=== PATIENT | male | born 1975 ===

== ENCOUNTER 2021-03-01 13:00 | Inpatient (IN) | payer BC ==
[~2021-03-01] VITALS: Ht 165.1 cm; Wt 79.9 kg
[~2021-03-01 13:00] MED LIST: etomidate 2mg/ml inj. ONE; rocuronium 10mg/ml inj IV ONE; sod chloride 0.9% 10ml flush syringe IV ONE
[2021-03-01 14:00] LABS: BASOPHILS # (AUTO) 0.1 X10'3 (0-0.2); BASOPHILS % (AUTO) 0.5 % (0-1); EOSINOPHILS # (AUTO) 0.1 X10'3 (0-0.9); EOSINOPHILS % (AUTO) 0.3 % (0-6); HEMATOCRIT 41.9 % (42.0-52.0); HEMOGLOBIN 14.3 g/dl (14.0-17.9); LYMPHOCYTES # (AUTO) 1.1 X10'3 (1.1-4.8); MEAN CORPUSCULAR HEMOGLOBIN 31.4 PG (27.0-31.0); MEAN CORPUSCULAR HGB CONC 34.1 g/dL (33.0-36.5); MEAN PLATELET VOLUME 7.6 FL (7.4-10.4); MONOCYTES # (AUTO) 1.2 X10'3 (0-0.9); MONOCYTES % (AUTO) 7.6 % (2-12); NEUTROPHILS # (AUTO) 13.2 X10'3 (1.8-7.7); NEUTROPHILS % (AUTO) 84.6 % (42-75); PLATELET COUNT 512 X10'3 (140-440); RED BLOOD COUNT 4.55 X10'6 (4.70-6.10); RED CELL DISTRIBUTION WIDTH 12.7 % (11.5-14.5); WHITE BLOOD COUNT 15.6 X10'3 (4.5-11.0)
[2021-03-01] MEDS ORDERED: NO HOME MEDS (14:10)
[2021-03-01 14:15] LABS: ALANINE AMINOTRANSFERASE 68 U/L (12-78); ALBUMIN 2.3 G/DL (3.4-5.0); ALBUMIN/GLOBULIN RATIO 0.4 (1.1-1.5); ALKALINE PHOSPHATASE 166 IU/L (46-116); ANION GAP 12 (8-16); ASPARTATE AMINO TRANSFERASE 49 U/L (10-37); BILIRUBIN,TOTAL 0.8 MG/DL (0.1-1.0); BLOOD UREA NITROGEN 5 MG/DL (7-18); BUN/CREATININE RATIO 5.6 (5.4-32.0); CALCIUM 8.5 MG/DL (8.5-10.1); CHLORIDE 100 MMOL/L (99-107); CREATININE 0.89 MG/DL (0.60-1.10); GLUCOSE 160 MG/DL (70-104); SODIUM 138 MMOL/L (135-145); TOTAL CARBON DIOXIDE 26.4 MMOL/L (24-32); eGFR > 90 ML/MIN
[2021-03-01] MEDS ORDERED: azithromycin/NS 500mg/250ml 250 ML IV ONE (14:45)
[2021-03-01] MEDS ORDERED: CefTRIAXone 2gm/D5W 50ml BAG 50 ML IV ONE (14:45)
[2021-03-01] MEDS ORDERED: ALBUTEROL INHALER 1 PUFF/90 MCG INHALER IH PRN (14:45)
[2021-03-01] MEDS ORDERED: iohexol 350MG/ML 100ml bottle IV ONE (15:18)
--- NOTE | 2021-03-01 18:25 | NUR ---
PATIENT SITTING ON SIDE OF BED. HE IS ABLE TO SPEAK IN FULL SENTENCES AND RESPONDING WELL TO NC O2.
--- NOTE | 2021-03-01 19:11 | NUR ---
PT IS PRONING
[2021-03-01] MEDS ORDERED: morphine 2 MG/ML inj. syringe IV PRN (20:15)
[2021-03-01] MEDS ORDERED: magnesium 2GM in 50ml NS 50 ML IV PRN (20:15)
[2021-03-01] MEDS ORDERED: magnesium Cl slow-release 64mg tablet PO PRN (20:15)
[2021-03-01] MEDS ORDERED: magnesium 4gm in 100ml NS 100 ML IV PRN (20:15)
[2021-03-01] MEDS ORDERED: potassium Cl 40MEQ/1/2NS 520ml 520 ML IV PRN ×2 (20:15)
[2021-03-01] MEDS ORDERED: magnesium hydroxide 30ml (MOM) UD suspension PO PRN (20:15)
[2021-03-01] MEDS ORDERED: potassium Cl 20 mEq SR tablet PO PRN ×2 (20:15)
[2021-03-01] MEDS ORDERED: HYDROcodone/acetaminophen 5mg/325mg tablet PO PRN (20:15)
[2021-03-01] MEDS ORDERED: acetaminophen 325mg tablet PO PRN ×2 (20:15)
[2021-03-01] MEDS ORDERED: ondansetron/PF 4mg/2ml inj IV PRN (20:15)
[2021-03-01] MEDS ORDERED: mag hydrox/Alum hydrox/simeth 30ml oral suspension PO PRN (20:15)
[2021-03-01] MEDS: dexamethasone 4mg/ml inj IV SCH (20:36)
--- NOTE | 2021-03-01 20:49 | NUR ---
PT DOES NOT TOLERATE CHANGE IN POSITIONS WELL. PT MEDICATED WITH ALBUTEROL INHALER AND DECADRON. O2 INCREASED TO 6L NC. PT LYING IN MID FOWLERS WITH SAO2 OF 93%.
[2021-03-01] MEDS ORDERED: temazepam 15mg capsule PO PRN (21:00)
--- NOTE | 2021-03-01 21:25 | NUR ---
SPOKE TO DR ROJAS CONCERNING PT'S MOVEMENT INTOLERANCE. REQ TO SEND PAGE TO RT FOR AN ABG AND RT EVALUATION. PAGE TO RT HAS BEEN SENT.
[2021-03-01 22:11] LABS: ABG BASE EXCESS 2.8 mmol/L (-2.0-2.0); ABG HCO3 26.5 mmol/L (22.0-26.0); ABG OXYGEN SATURATION 92.8 % (94-97); ABG PCO2 (T) 39.2 mmHg (35.0-48.0); ABG PO2 (T) 70.1 mmHg (75.0-100.0); ALLEN'S TEST POSITIVE; FCOHb 0.5 % (0.0-3.9); FLOW 6 L/min; FMetHb 0.1 % (0.0-1.5); FO2Hb 92.2 % (94-97); PATIENT TEMPERATURE 37.8; TOTAL HEMOGLOBIN 13.3 G/dl (14.0-18.0)
[2021-03-02 02:19] LABS: BASOPHILS % (AUTO) 0.2 % (0-1); EOSINOPHILS % (AUTO) 0 % (0-6); HEMATOCRIT 37.8 % (42.0-52.0); LYMPHOCYTES # (AUTO) 0.7 X10'3 (1.1-4.8); LYMPHOCYTES % (AUTO) 4.6 % (21-51); MEAN CORPUSCULAR HEMOGLOBIN 31.3 PG (27.0-31.0); MEAN CORPUSCULAR HGB CONC 34.5 g/dL (33.0-36.5); MEAN CORPUSCULAR VOLUME 90.9 FL (78-98); MEAN PLATELET VOLUME 7.8 FL (7.4-10.4); MONOCYTES # (AUTO) 0.5 X10'3 (0-0.9); MONOCYTES % (AUTO) 3.3 % (2-12); NEUTROPHILS # (AUTO) 13.5 X10'3 (1.8-7.7); NEUTROPHILS % (AUTO) 91.9 % (42-75); PLATELET COUNT 409 X10'3 (140-440); RED BLOOD COUNT 4.16 X10'6 (4.70-6.10); RED CELL DISTRIBUTION WIDTH 12.5 % (11.5-14.5); WHITE BLOOD COUNT 14.7 X10'3 (4.5-11.0)
[2021-03-02 02:34] LABS: D-DIMER 7.21 MG/L FEU (0-0.50)
[2021-03-02 02:39] LABS: ALANINE AMINOTRANSFERASE 68 U/L (12-78); ALBUMIN 2.2 G/DL (3.4-5.0); ALBUMIN/GLOBULIN RATIO 0.4 (1.1-1.5); ALKALINE PHOSPHATASE 118 IU/L (46-116); ANION GAP 8 (8-16); ASPARTATE AMINO TRANSFERASE 58 U/L (10-37); BILIRUBIN,TOTAL 0.6 MG/DL (0.1-1.0); BLOOD UREA NITROGEN 6 MG/DL (7-18); BUN/CREATININE RATIO 7.2 (5.4-32.0); C-REACTIVE PROTEIN 20.49 MG/DL (0.0-0.5); CALCIUM 8.4 MG/DL (8.5-10.1); CHLORIDE 106 MMOL/L (99-107); CREATININE 0.83 MG/DL (0.60-1.10); GLUCOSE 163 MG/DL (70-104); LACTATE DEHYDROGENASE 390 U/L (85-227); POTASSIUM 4.5 MMOL/L (3.5-5.1); SODIUM 142 MMOL/L (135-145); TOTAL PROTEIN 7.2 G/DL (6.4-8.2); eGFR > 90 ML/MIN
--- NOTE | 2021-03-02 04:03 | NUR ---
Bhavani fenton in ED - 03/02/21 at 0403 by BROOKE RETURNED FROM [address] OF ABDOMEN
[2021-03-02] MEDS ORDERED: heparin, porcine 5000 units/ml vial SQ SCH (08:00)
[2021-03-02] MEDS: K and/or MAG REPLACEMENT MC SCH ×2 (08:00→20:00)
[2021-03-02] MEDS: CefTRIAXone 2gm/D5W 50ml BAG 50 ML IV SCH (09:05)
[2021-03-02] MEDS: dexamethasone 4mg/ml inj IV SCH ×2 (09:05→22:36)
--- NOTE | 2021-03-02 09:18 | NUR ---
PT ON NON REBREATHER MASK AND STILL CANNOT GET O2 SAT ABOVE 85.
--- NOTE | 2021-03-02 09:24 | NUR ---
ORDERS PER DR GRIFFITH, PAGE RT, GET ABG, PUT PT ON SALTER NASAL CANULA.
--- NOTE | 2021-03-02 09:28 | NUR ---
PAGE SENT TO RT: YAEL HAGEN, ROOM 1, STAT ABG, PLACE PT ON LEE ANN BLOUNT POS CANNOT SAT OVER 85 ON NON REBREATHER
[2021-03-02 10:08] LABS: ABG HCO3 24.2 mmol/L (22.0-26.0); ABG OXYGEN SATURATION 85.8 % (94-97); ABG PCO2 (T) 37.9 mmHg (35.0-48.0); ABG PO2 (T) 50.8 mmHg (75.0-100.0); ALLEN'S TEST POSITIVE; FCOHb 0.3 % (0.0-3.9); FLOW 15 L/min; FMetHb 0.2 % (0.0-1.5); FO2Hb 85.4 % (94-97); TOTAL HEMOGLOBIN 14.3 G/dl (14.0-18.0)
--- NOTE | 2021-03-02 10:20 | NUR ---
Bhavani fenton in ED - 03/02/21 at 1021 by ALVA PAGER ID: [phone] MESSAGE: ROOM 1 ED, PT GERARDO HAGEN, --[facility], ABG pO2 50.8 ON ON REBREATHER 100%FIO2. PT NOW ON SALTER AND NONREBREATHER SAT IS 95%
--- NOTE | 2021-03-02 10:22 | NUR ---
PAGER ID: [phone] MESSAGE: ROOM 1 ED, PT GERARDO HAGEN, --[facility], ABG pO2 50.8 ON ON REBREATHER 100%FIO2. PT NOW ON SALTER AND NONREBREATHER SAT IS 95%
--- NOTE | 2021-03-02 10:29 | NUR ---
Dr Ovalles Bedside
[2021-03-02] MEDS ORDERED: REMDESIVIR INJ 200 MG in normal saline 100ml IV soln 60 ML IV ONE (13:10)
--- NOTE | 2021-03-02 18:29 | NUR ---
ASSUMED CARE OF PT. PT LYING ON BED IN MID-CONN'S POSITION. A&OX4. SPEAKS IN FULL SENTENCES AND REPORTS "FEELING WELL."
[2021-03-02 20:00] VITALS: BP 134/78
--- NOTE | 2021-03-02 20:40 | NUR ---
PAGER ID: [phone] MESSAGE: Osman Moreno 45M rm [id number] admit 03/02 Dx Covid Pnu Hx none NKA Can we get an order for RT Eval and treat? Thank you Jennifer [phone] Addendum: 03/02/21 at 2041 by Jennifer Colunga RN Dr Eden kraft
[2021-03-02 22:00] VITALS: BP 133/46
[2021-03-02] MEDS: lactobacillus rhamnosus 10,000 MMU CELLS/CAPSULE PO SCH (22:35)
[2021-03-02] MEDS: enoxaparin 60mg/0.6ml syringe SUBCUT SCH (22:35)
--- NOTE | 2021-03-03 01:14 | NUR ---
PAGER ID: [phone] MESSAGE: Osman Singh 45M room 3008-A DX: Joce PNA Hx: none NKA Pt is currently sating at 85-88% on non rebreather at 15L and hi flow nc at 15L. pt is a bit more lethargic. Can we please order an ABG? Vikki U [id number] Addendum: 03/03/21 at 0119 by Vikki Cruz RN Dr mcgee and Dr barnes ordered ABG stat
[2021-03-03 01:28] LABS: ABG HCO3 27.7 mmol/L (22.0-26.0); ABG OXYGEN SATURATION 92.4 % (94-97); ABG PCO2 (T) 40.7 mmHg (35.0-48.0); ABG PO2 (T) 61.9 mmHg (75.0-100.0); ALLEN'S TEST POSITIVE; FCOHb 0.2 % (0.0-3.9); FMetHb 0.3 % (0.0-1.5); FO2Hb 91.9 % (94-97); PATIENT TEMPERATURE 35.8; TOTAL HEMOGLOBIN 13.8 G/dl (14.0-18.0)
[2021-03-03 02:00] VITALS: BP 136/43
--- NOTE | 2021-03-03 03:59 | NUR ---
PAGER ID: [phone] MESSAGE: Pt Osman hernandez 45M Tele 3008-A Dx: Doug SY Hx: none NKA pt desating to the low 80's% ABG done, improved to pO2 of 61.09 but still desating and SOB Vikki Tele [id number] Addendum: 03/03/21 at 0407 by Vikki Cruz RN Dr Harmon contacted, ordered Renard, RT aware
--- NOTE | 2021-03-03 04:55 | NUR ---
Pt was on 15L HFNC with 15L non-rebreather, and pt was desaturating on that. ABG was done and oxygen had improved from yesterday mornings ABG. Pt continued to desaturate into the lower 80's and now BiPAP is on pt. Settings are 14/8, 18, and 100% FiO2. Pt is now oxygenating 92%.
--- NOTE | 2021-03-03 05:33 | NUR ---
PAGER ID: [phone] MESSAGE: Pt Osman Moreno U [id number] Dx: Joce SY Pt tolerating Bipap but need Bipap orders. 20/02 and titrate fi02 to sustain sats at 88-94% Vikki HICKMAN [id number] Addendum: 03/03/21 at 0535 by Vikki Cruz RN Dr Harmon contacted orders of Bipap 20/02 put in
[2021-03-03 06:00] VITALS: BP 140/54
[2021-03-03 06:09] LABS: BASOPHILS # (AUTO) 0.1 X10'3 (0-0.2); BASOPHILS % (AUTO) 0.3 % (0-1); EOSINOPHILS % (AUTO) 0 % (0-6); HEMATOCRIT 37.4 % (42.0-52.0); HEMOGLOBIN 12.7 g/dl (14.0-17.9); LYMPHOCYTES # (AUTO) 0.7 X10'3 (1.1-4.8); LYMPHOCYTES % (AUTO) 3.4 % (21-51); MEAN CORPUSCULAR HEMOGLOBIN 31.2 PG (27.0-31.0); MEAN CORPUSCULAR VOLUME 91.8 FL (78-98); MEAN PLATELET VOLUME 7.8 FL (7.4-10.4); MONOCYTES # (AUTO) 1.1 X10'3 (0-0.9); MONOCYTES % (AUTO) 5.4 % (2-12); NEUTROPHILS # (AUTO) 18.4 X10'3 (1.8-7.7); NEUTROPHILS % (AUTO) 90.9 % (42-75); PLATELET COUNT 418 X10'3 (140-440); RED BLOOD COUNT 4.08 X10'6 (4.70-6.10); RED CELL DISTRIBUTION WIDTH 12.6 % (11.5-14.5); WHITE BLOOD COUNT 20.2 X10'3 (4.5-11.0)
--- NOTE | 2021-03-03 06:25 | NUR ---
Problems reprioritized. Patient report given, questions answered & plan of care reviewed with GERARDO Hanson.
--- NOTE | 2021-03-03 06:32 | NUR ---
[place] documentation: I have reviewed and agree with all interventions, assessments performed and documented by GERARDO Florez.
--- NOTE | 2021-03-03 06:33 | NUR ---
[place] Medication Administration: For this medication-pass time frame, all medication were reviewed, dispensed, administered and documented per hospital policy by GERARDO Florez.
--- NOTE | 2021-03-03 06:33 | NUR ---
Patient in room PCU 3008. I have received report from Vikki RN and Jennifer RN and had the opportunity to ask questions and assume patient care.
[2021-03-03 06:38] LABS: ALANINE AMINOTRANSFERASE 79 U/L (12-78); ALBUMIN/GLOBULIN RATIO 0.4 (1.1-1.5); ALKALINE PHOSPHATASE 116 IU/L (46-116); ANION GAP 9 (8-16); ASPARTATE AMINO TRANSFERASE 58 U/L (10-37); BILIRUBIN,TOTAL 0.5 MG/DL (0.1-1.0); BLOOD UREA NITROGEN 13 MG/DL (7-18); BUN/CREATININE RATIO 17.8 (5.4-32.0); CALCIUM 8.5 MG/DL (8.5-10.1); CHLORIDE 106 MMOL/L (99-107); CREATININE 0.73 MG/DL (0.60-1.10); GLUCOSE 158 MG/DL (70-104); MAGNESIUM 2.1 MG/DL (1.5-2.4); POTASSIUM 4.7 MMOL/L (3.5-5.1); SODIUM 142 MMOL/L (135-145); TOTAL CARBON DIOXIDE 26.9 MMOL/L (24-32); eGFR > 90 ML/MIN
[2021-03-03] MEDS: CefTRIAXone 2gm/D5W 50ml BAG 50 ML IV SCH (07:54)
[2021-03-03] MEDS: enoxaparin 60mg/0.6ml syringe SUBCUT SCH (07:54)
[2021-03-03] MEDS: dexamethasone 4mg/ml inj IV SCH (07:54)
[2021-03-03] MEDS: lactobacillus rhamnosus 10,000 MMU CELLS/CAPSULE PO SCH (07:54)
[2021-03-03] MEDS: K and/or MAG REPLACEMENT MC SCH ×2 (08:00→20:00)
[2021-03-03] MEDS: REMDESIVIR INJ 100 MG in normal saline 100ml IV soln 80 ML IV SCH (09:00)
[2021-03-03] MEDS ORDERED: pneumococcal 23-VAL P-sac vacc 25 mcg/0.5ml vial IMVAC ONE (10:00)
[2021-03-03 11:00] VITALS: BP 136/52
[2021-03-03 14:12] LABS: C-REACTIVE PROTEIN 20.09 MG/DL (0.0-0.5)
[2021-03-03 15:00] VITALS: BP 138/54
[2021-03-03] MEDS: vancomycin/NS 1 GM ADD-VANTAGE 250 ML X 1 DOSE IV SCH (15:30)
[2021-03-03 16:05] LABS: HIV ANTIBODY 1&2 RAPID NON-REACTIVE (Neg)
[2021-03-03 18:00] VITALS: BP 139/67
--- NOTE | 2021-03-03 18:54 | NUR ---
Problems reprioritized. Patient report given, questions answered & plan of care reviewed with GERARDO Marino.
--- NOTE | 2021-03-03 19:31 | NUR ---
Patient in room PCU 3008. I have received report from Margie CARRILLO and had the opportunity to ask questions and assume patient care.
[2021-03-03 22:00] VITALS: BP 112/69
[2021-03-04] VITALS (22 sets, daily range): BP systolic 80–185; BP diastolic 47–100
[2021-03-04] MEDS: enoxaparin 60mg/0.6ml syringe SUBCUT SCH ×3 (00:29→21:04)
[2021-03-04] MEDS: dexamethasone 4mg/ml inj IV SCH ×2 (00:30→08:03)
[2021-03-04] MEDS: vancomycin/NS 1 GM ADD-VANTAGE 250 ML X 1 DOSE IV SCH ×3 (00:38→21:05)
[2021-03-04] MEDS: lactobacillus rhamnosus 10,000 MMU CELLS/CAPSULE PO SCH ×3 (00:39→21:04)
--- NOTE | 2021-03-04 06:00 | NUR ---
Patient in room CICU 2008. I have received report from maribel adams and had the opportunity to ask questions and assume patient care.
--- NOTE | 2021-03-04 06:30 | NUR ---
Check pt, awake, ox3, rr 34, sat 90-92%, pt on bipap 100% fio2 i22/e12 Vt is 700. says he feels"ok". says last BM3 days ago.
[2021-03-04 06:35] LABS: BASOPHILS % (AUTO) 0.2 % (0-1); EOSINOPHILS % (AUTO) 0 % (0-6); HEMATOCRIT 38.8 % (42.0-52.0); HEMOGLOBIN 13.1 g/dl (14.0-17.9); LYMPHOCYTES # (AUTO) 0.6 X10'3 (1.1-4.8); MEAN CORPUSCULAR HGB CONC 33.7 g/dL (33.0-36.5); MEAN CORPUSCULAR VOLUME 92.1 FL (78-98); MEAN PLATELET VOLUME 8.3 FL (7.4-10.4); MONOCYTES # (AUTO) 0.9 X10'3 (0-0.9); MONOCYTES % (AUTO) 4.5 % (2-12); NEUTROPHILS % (AUTO) 92.3 % (42-75); PLATELET COUNT 366 X10'3 (140-440); RED BLOOD COUNT 4.21 X10'6 (4.70-6.10); RED CELL DISTRIBUTION WIDTH 12.8 % (11.5-14.5); WHITE BLOOD COUNT 20.6 X10'3 (4.5-11.0)
[2021-03-04 06:55] LABS: ALANINE AMINOTRANSFERASE 79 U/L (12-78); ALBUMIN 1.9 G/DL (3.4-5.0); ALBUMIN/GLOBULIN RATIO 0.4 (1.1-1.5); ALKALINE PHOSPHATASE 126 IU/L (46-116); ANION GAP 9 (8-16); ASPARTATE AMINO TRANSFERASE 61 U/L (10-37); BILIRUBIN,TOTAL 0.7 MG/DL (0.1-1.0); BLOOD UREA NITROGEN 13 MG/DL (7-18); CALCIUM 8.7 MG/DL (8.5-10.1); CHLORIDE 106 MMOL/L (99-107); CREATININE 0.81 MG/DL (0.60-1.10); GLUCOSE 169 MG/DL (70-104); MAGNESIUM 2.3 MG/DL (1.5-2.4); POTASSIUM 4.9 MMOL/L (3.5-5.1); SODIUM 144 MMOL/L (135-145); eGFR > 90 ML/MIN
--- NOTE | 2021-03-04 06:59 | NUR ---
Problems reprioritized. Patient report given, questions answered & plan of care reviewed with Vishnu CARRILLO.
[2021-03-04] MEDS: K and/or MAG REPLACEMENT MC SCH ×2 (08:00→20:00)
[2021-03-04] MEDS: CefTRIAXone 2gm/D5W 50ml BAG 50 ML IV SCH (08:03)
[2021-03-04] MEDS: REMDESIVIR INJ 100 MG in normal saline 100ml IV soln 80 ML IV SCH (08:04)
--- NOTE | 2021-03-04 09:05 | NUR ---
0845 mD Ovalles present , informed him pt cont to hav elow sats. he madde an attempt to eat a few bites of food on 15L salter NC and desat to 65%, he said " yeah, i feel a little SOB" his rr 40's reapplied bipap immediately and explained he can't tolerate being off it. Watched sats for 35 min and he isnt recvering well. sats 80-85%. MD Ovalles says lets intubat ehim. Charge nurse notified and team arrived at 0900 to intubate- it was agreed to do so at bedside. MD Ramirez intubated pt at this time 0900. 0905 admin meds. intubated succesfully and has OG tube placed by 0910. ICU by 0930 with RT at bedside during transport, and gave report to shelton CARRILLO
--- NOTE | 2021-03-04 09:30 | NUR ---
received by bed to room 2007.- sedated post intubation. sbp high. md aware of only piv x 1= picc ordered.
[2021-03-04] MEDS ORDERED: midazolam 1 mg/ML 2ml injection IV ONE (09:45)
[2021-03-04] MEDS ORDERED: fentaNYL/PF 50MCG/1 ML 2ML syringe IV PRN (09:45)
[2021-03-04] MEDS: normal saline 1000ml 1,000 ML IV SCH ×2 (09:50→23:10)
[2021-03-04] MEDS ORDERED: acetaminophen 325mg tablet PO PRN ×2 (09:50)
[2021-03-04] MEDS ORDERED: ondansetron/PF 4mg/2ml inj IV PRN (09:50)
[2021-03-04] MEDS ORDERED: magnesium hydroxide 30ml (MOM) UD suspension PO PRN (09:50)
[2021-03-04 09:52] LABS: ABG BASE EXCESS -0.3 mmol/L (-2.0-2.0); ABG HCO3 26.7 mmol/L (22.0-26.0); ABG OXYGEN SATURATION 89.8 % (94-97); ABG PCO2 (T) 52.6 mmHg (35.0-48.0); ABG PO2 (T) 66.3 mmHg (75.0-100.0); ALLEN'S TEST POSITIVE; FCOHb 0.3 % (0.0-3.9); FMetHb 0.5 % (0.0-1.5); FO2Hb 89.1 % (94-97); PATIENT TEMPERATURE 36.9; PEEP 12 cm H2O; RESPIRATORY RATE 24 b/min; TIDAL VOLUME 425 mL; TOTAL HEMOGLOBIN 14.6 G/dl (14.0-18.0)
--- NOTE | 2021-03-04 10:00 | NUR ---
fentanyl and versed hung- frequent boluses- pt difficult to sedate- sbp 180's to 80's/ pt was awake- obeying commands, but very anxious.
[2021-03-04 11:16] LABS: PLATELET COUNT 388 X10'3 (140-440)
[2021-03-04 11:55] LABS: D-DIMER 4.91 MG/L FEU (0-0.50); PARTIAL THROMBOPLASTIN TIME 29 SECONDS (22-32)
[2021-03-04 12:22] LABS: CLARITY,URINE CLOUDY (Clear); COLOR,URINE YELLOW (Yellow); GLUCOSE, URINE NEGATIVE (Neg); KETONES,URINE NEGATIVE (Neg); LEUKOCYTE ESTERASE ,URINE NEGATIVE (Neg); NITRITES, URINE NEGATIVE (Neg); OCCULT BLOOD,URINE TRACE-INTACT (Neg); PH,URINE 5.5 (4.8-8.0); PROTEIN,URINE 30 mg/dl (Neg)
[2021-03-04 12:31] LABS: UA COLLECTION TYPE FOLEY CATH
[2021-03-04 12:42] LABS: SQUAMOUS EPITHELIAL CELL,UR FEW /LPF (FEW)
[2021-03-04 12:43] LABS: HYALINE CASTS >30 /LPF (NEGATIVE)
[2021-03-04 12:45] LABS: RENAL CELLS, URINE FEW /HPF; TRANSITIONAL EPI CELLS,URINE FEW /HPF
[2021-03-04] MEDS ORDERED: normal saline 1000ml 1,000 ML IVB ONE (12:45)
[2021-03-04 12:46] LABS: WBC,URINE 0-4 /HPF (0-4)
[2021-03-04 12:48] LABS: BACTERIA,URINE NONE SEEN /HPF (Neg)
[2021-03-04] MEDS ORDERED: VANCOMYCIN LEVEL IV ONE (13:30)
--- NOTE | 2021-03-04 13:54 | NUR ---
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 Pt s/p rapid response 03/03 and required urgent intubation per MD note. Pt with an OG tube in place per EMR, to begin TF per MD at critical care rounds. Estimated nutrient needs were calculated using IBW +10% as current wt in EMR isn't scaled. Will monitor for scaled weight and adjust TF recommendations as appropriate. Noted that pt was on a regular diet prior to intubation and not eating well with 0% PO intake throughout LOS. LBM 03/02, receiving routine bowel care. Will continue to follow closely. Recommendations: 1) Continuous TF via OG tube using Vital AF with goal rate of 55 mL/hr to provide 1320 mL total volume/day, 1584 kcal, 99 g protein, and 1071 mL water 2) Additional 100 mL water flush Q4H; monitor serum Na 3) Prealbumin q Monday/ 4) Daily scaled weight 5) Routine bowel care 6) Monitor for scaled weight and adjust TF recommendations as appropriate Addendum: 03/04/21 at [address] Amended: Links added.
[2021-03-04 14:24] LABS: C-REACTIVE PROTEIN 32.13 MG/DL (0.0-0.5)
[2021-03-04] MEDS: FENTANYL-0.9 % NACL/PF 100 ML IV PRN ×3 (14:53→22:59)
[2021-03-04] MEDS ORDERED: mag hydrox/Alum hydrox/simeth 30ml oral suspension OGT PRN (15:54)
[2021-03-04] MEDS ORDERED: acetaminophen 325mg tablet OGT PRN ×2 (15:54)
[2021-03-04] MEDS ORDERED: magnesium hydroxide 30ml (MOM) UD suspension OGT PRN (15:55)
[2021-03-04] MEDS ORDERED: temazepam 15mg capsule OGT PRN (15:56)
[2021-03-04] MEDS: methylPREDNISolone sod succ 125mg/2ml vial IV SCH ×2 (16:00→21:03)
[2021-03-04] MEDS ORDERED: POTASSIUM BICARB 20meq eff tab 20 MEQ TABLET.EFF OGT PRN (16:00)
[2021-03-04] MEDS: NORepinephrine 8mg/ 250ml NS 250 ML IV SCH (16:38)
[2021-03-04] MEDS: CISatracurium besylate inj. 100 MG in normal saline 100ml IV soln 90 ML IV SCH (16:41)
--- NOTE | 2021-03-04 17:30 | NUR ---
pt given 2l ns for decreased bp r/t sedation. levo here and started for continued low bp. sats 86% despite vent changes- dr mendez here/ nimbex started- sats to 90 briefly then pt sat up in bed- coughing disconnected vented- sats to 67- up slowly to 87%.
--- NOTE | 2021-03-04 18:00 | NUR ---
nimbex increased x 3 as pt with continued desats, high to low pp, stacking breaths- sats slowly improving to 88%
[2021-03-04] MEDS: midazolam 100mg in NS 100ml 100 ML IV PRN (18:58)
[2021-03-04] MEDS ORDERED: docusate sod 100mg capsule PO SCH (20:00)
--- NOTE | 2021-03-04 21:00 | NUR ---
overbreathing on vent despite nimbex, versed, and fentanyl drips titrating versed as tolerated. O2 sats down to 77%. audible respiratory effort around ETT. RT at bedside to confirm placement and cuff pressure. Pt proned at this time with O2 sats up to 88%
[2021-03-04] MEDS: docusate sodium 100mg/10ml UD cup OGT SCH (21:03)
[2021-03-04] MEDS: famotidine 20mg tablet OGT SCH (21:04)
[2021-03-05] VITALS (24 sets, daily range): BP systolic 91–178; BP diastolic 48–84
[2021-03-05] MEDS: CISatracurium besylate inj. 100 MG in normal saline 100ml IV soln 90 ML IV SCH ×5 (01:55→22:10)
[2021-03-05] MEDS: midazolam 100mg in NS 100ml 100 ML IV PRN ×3 (01:56→20:20)
[2021-03-05] MEDS: methylPREDNISolone sod succ 125mg/2ml vial IV SCH ×4 (02:06→21:54)
[2021-03-05 02:44] LABS: ABG BASE EXCESS 2.7 mmol/L (-2.0-2.0); ABG HCO3 30.3 mmol/L (22.0-26.0); ABG PCO2 (T) 59.6 mmHg (35.0-48.0); ABG PO2 (T) 63.2 mmHg (75.0-100.0); ALLEN'S TEST POSITIVE; FCOHb 0.3 % (0.0-3.9); FMetHb 0.3 % (0.0-1.5); FO2Hb 89.5 % (94-97); PATIENT TEMPERATURE 36.7; PEEP 14 cm H2O; RESPIRATORY RATE 26 b/min; TIDAL VOLUME 425 mL; TOTAL HEMOGLOBIN 12.8 G/dl (14.0-18.0)
--- NOTE | 2021-03-05 03:00 | NUR ---
Patient paralyzed on nimbex. Restraints DC'd at this time
[2021-03-05 03:05] LABS: BASOPHILS % (AUTO) 0.1 % (0-1); EOSINOPHILS % (AUTO) 0 % (0-6); HEMATOCRIT 35.1 % (42.0-52.0); HEMOGLOBIN 11.4 g/dl (14.0-17.9); LYMPHOCYTES # (AUTO) 0.6 X10'3 (1.1-4.8); LYMPHOCYTES % (AUTO) 4.2 % (21-51); MEAN CORPUSCULAR HEMOGLOBIN 30.7 PG (27.0-31.0); MEAN CORPUSCULAR HGB CONC 32.3 g/dL (33.0-36.5); MEAN CORPUSCULAR VOLUME 95.1 FL (78-98); MEAN PLATELET VOLUME 8.6 FL (7.4-10.4); MONOCYTES # (AUTO) 0.5 X10'3 (0-0.9); MONOCYTES % (AUTO) 3.6 % (2-12); NEUTROPHILS # (AUTO) 12.1 X10'3 (1.8-7.7); NEUTROPHILS % (AUTO) 92.1 % (42-75); PLATELET COUNT 332 X10'3 (140-440); RED BLOOD COUNT 3.69 X10'6 (4.70-6.10); RED CELL DISTRIBUTION WIDTH 13.1 % (11.5-14.5); WHITE BLOOD COUNT 13.1 X10'3 (4.5-11.0)
[2021-03-05 03:22] LABS: PARTIAL THROMBOPLASTIN TIME 29 SECONDS (22-32)
[2021-03-05] MEDS: FENTANYL-0.9 % NACL/PF 100 ML IV PRN ×5 (03:23→22:09)
[2021-03-05 03:30] LABS: ALANINE AMINOTRANSFERASE 79 U/L (12-78); ALBUMIN 1.6 G/DL (3.4-5.0); ALBUMIN/GLOBULIN RATIO 0.4 (1.1-1.5); ALKALINE PHOSPHATASE 96 IU/L (46-116); ANION GAP 4 (8-16); ASPARTATE AMINO TRANSFERASE 37 U/L (10-37); BILIRUBIN,TOTAL 0.3 MG/DL (0.1-1.0); BLOOD UREA NITROGEN 18 MG/DL (7-18); BUN/CREATININE RATIO 25.7 (5.4-32.0); CALCIUM 7.8 MG/DL (8.5-10.1); CHLORIDE 112 MMOL/L (99-107); GLUCOSE 178 MG/DL (70-104); MAGNESIUM 2.6 MG/DL (1.5-2.4); PHOSPHORUS 3.9 MG/DL (2.3-4.5); POTASSIUM 5.1 MMOL/L (3.5-5.1); PREALBUMIN 7.7 MG/DL (19-36); SODIUM 146 MMOL/L (135-145); TOTAL PROTEIN 6.1 G/DL (6.4-8.2); eGFR > 90 ML/MIN
[2021-03-05 03:31] LABS: C-REACTIVE PROTEIN 26.96 MG/DL (0.0-0.5)
[2021-03-05] MEDS: vancomycin/NS 1 GM ADD-VANTAGE 250 ML X 1 DOSE IV SCH ×2 (04:10→12:57)
--- NOTE | 2021-03-05 06:30 | NUR ---
Patient in room CICU 2008. I have received report from PHILIP and had the opportunity to ask questions and assume patient care.
[2021-03-05] MEDS: NORepinephrine 8mg/ 250ml NS 250 ML IV SCH ×2 (06:45→21:25)
[2021-03-05] MEDS: REMDESIVIR INJ 100 MG in normal saline 100ml IV soln 80 ML IV SCH (07:02)
[2021-03-05] MEDS: K and/or MAG REPLACEMENT MC SCH ×2 (08:00→20:00)
[2021-03-05] MEDS: famotidine 20mg tablet OGT SCH ×2 (09:13→21:49)
[2021-03-05] MEDS: lactobacillus rhamnosus 10,000 MMU CELLS/CAPSULE OGT SCH ×2 (09:13→21:58)
[2021-03-05] MEDS: docusate sodium 100mg/10ml UD cup OGT SCH ×2 (09:13→21:50)
[2021-03-05] MEDS: enoxaparin 60mg/0.6ml syringe SUBCUT SCH ×2 (09:14→21:48)
[2021-03-05] MEDS: CefTRIAXone 2gm/D5W 50ml BAG 50 ML IV SCH (09:14)
--- NOTE | 2021-03-05 09:30 | NUR ---
PT TURNED TO SIDE PRONE- SATS WNL. NOW BACK TO SUPINE FOR ARTERIAL LINE PLACEMENT. UPDATE TO FAMILY- NEPHEW AND BROTHER.
--- NOTE | 2021-03-05 11:10 | NUR ---
Noted pt with a low Thony of 12. No edema or wounds per physical assessment. Will continue to follow. Addendum: 03/05/21 at [address] Amended: Links added.
[2021-03-05] MEDS ORDERED: VANCOMYCIN LEVEL IV ONE (11:30)
[2021-03-05] MEDS ORDERED: DOPamine 400mg/D5W 250ml 250 ML IV ONE (12:29)
[2021-03-05] MEDS ORDERED: atropine 0.1mg/ml 10ml syringe ONE (12:29)
--- NOTE | 2021-03-05 12:30 | NUR ---
ARTERIAL LINE PLACED BY MD AFTER SEVERAL ATTEMPTS ON RT RADIAL, RT FEM AND LEFT FEM
[2021-03-05] MEDS: normal saline 1000ml 1,000 ML IV SCH (12:59)
[2021-03-05] MEDS: mineral oil/petrolatum ophthal oint EACHEYE SCH ×2 (14:00→20:00)
[2021-03-05] MEDS ORDERED: glucagon, human recombinant 1mg kit SUBCUT PRN (16:35)
[2021-03-05] MEDS ORDERED: dextrose ORAL solution 15 GM/59 ML bottle PO PRN ×2 (16:35)
[2021-03-05] MEDS: insulin regular, human U-100 3ml vial - multi-dose SQ SCH (21:44)
[2021-03-05] MEDS: insulin glargine (Lantus) pen - multi-dose SQ SCH (21:46)
[2021-03-06] VITALS (24 sets, daily range): BP systolic 114–163; BP diastolic 52–88
[2021-03-06] MEDS: mineral oil/petrolatum ophthal oint EACHEYE SCH ×4 (02:04→20:00)
[2021-03-06] MEDS: CISatracurium besylate inj. 100 MG in normal saline 100ml IV soln 90 ML IV SCH (02:05)
[2021-03-06] MEDS: midazolam 100mg in NS 100ml 100 ML IV PRN ×4 (02:35→20:57)
[2021-03-06] MEDS: FENTANYL-0.9 % NACL/PF 100 ML IV PRN ×4 (02:49→23:19)
[2021-03-06] MEDS: methylPREDNISolone sod succ 125mg/2ml vial IV SCH ×4 (02:49→21:01)
[2021-03-06] MEDS: insulin regular, human U-100 3ml vial - multi-dose SQ SCH ×4 (03:10→20:47)
[2021-03-06 03:18] LABS: ABG BASE EXCESS 1.8 mmol/L (-2.0-2.0); ABG HCO3 27.7 mmol/L (22.0-26.0); ABG OXYGEN SATURATION 90.2 % (94-97); ABG PCO2 (T) 49.8 mmHg (35.0-48.0); ALLEN'S TEST POSITIVE; FCOHb 0.3 % (0.0-3.9); FMetHb 0.4 % (0.0-1.5); FO2Hb 89.6 % (94-97); PATIENT TEMPERATURE 37.5; PEEP 14 cm H2O; RESPIRATORY RATE 26 b/min; TIDAL VOLUME 425 mL; TOTAL HEMOGLOBIN 12.3 G/dl (14.0-18.0)
[2021-03-06 03:46] LABS: BASOPHILS % (AUTO) 0.4 % (0-1); EOSINOPHILS % (AUTO) 0 % (0-6); HEMOGLOBIN 11.8 g/dl (14.0-17.9); LYMPHOCYTES # (AUTO) 0.5 X10'3 (1.1-4.8); MEAN CORPUSCULAR HEMOGLOBIN 30.9 PG (27.0-31.0); MEAN CORPUSCULAR HGB CONC 32.7 g/dL (33.0-36.5); MEAN CORPUSCULAR VOLUME 94.5 FL (78-98); MEAN PLATELET VOLUME 8.7 FL (7.4-10.4); MONOCYTES # (AUTO) 0.6 X10'3 (0-0.9); MONOCYTES % (AUTO) 4.6 % (2-12); NEUTROPHILS # (AUTO) 11.7 X10'3 (1.8-7.7); PLATELET COUNT 367 X10'3 (140-440); RED BLOOD COUNT 3.81 X10'6 (4.70-6.10); WHITE BLOOD COUNT 12.8 X10'3 (4.5-11.0)
[2021-03-06 03:56] LABS: D-DIMER 4.35 MG/L FEU (0-0.50); PARTIAL THROMBOPLASTIN TIME 26 SECONDS (22-32)
[2021-03-06 03:59] LABS: ALANINE AMINOTRANSFERASE 54 U/L (12-78); ALBUMIN 1.6 G/DL (3.4-5.0); ALBUMIN/GLOBULIN RATIO 0.4 (1.1-1.5); ALKALINE PHOSPHATASE 89 IU/L (46-116); ANION GAP 6 (8-16); ASPARTATE AMINO TRANSFERASE 15 U/L (10-37); BILIRUBIN,TOTAL 0.2 MG/DL (0.1-1.0); BLOOD UREA NITROGEN 20 MG/DL (7-18); BUN/CREATININE RATIO 31.7 (5.4-32.0); C-REACTIVE PROTEIN 9.46 MG/DL (0.0-0.5); CALCIUM 7.8 MG/DL (8.5-10.1); CHLORIDE 114 MMOL/L (99-107); CREATININE 0.63 MG/DL (0.60-1.10); GLUCOSE 203 MG/DL (70-104); MAGNESIUM 2.4 MG/DL (1.5-2.4); PHOSPHORUS 2.7 MG/DL (2.3-4.5); POTASSIUM 4.6 MMOL/L (3.5-5.1); SODIUM 148 MMOL/L (135-145); TOTAL CARBON DIOXIDE 28.4 MMOL/L (24-32); TOTAL PROTEIN 5.9 G/DL (6.4-8.2); eGFR > 90 ML/MIN
--- NOTE | 2021-03-06 06:30 | NUR ---
Patient in room CICU 2008. I have received report from agustín and had the opportunity to ask questions and assume patient care.
[2021-03-06] MEDS: K and/or MAG REPLACEMENT MC SCH ×2 (07:29→20:00)
[2021-03-06] MEDS: REMDESIVIR INJ 100 MG in normal saline 100ml IV soln 80 ML IV SCH (08:00)
[2021-03-06] MEDS: enoxaparin 60mg/0.6ml syringe SUBCUT SCH ×2 (08:01→20:59)
[2021-03-06] MEDS: docusate sodium 100mg/10ml UD cup OGT SCH ×2 (08:01→20:58)
[2021-03-06] MEDS: lactobacillus rhamnosus 10,000 MMU CELLS/CAPSULE OGT SCH ×2 (08:02→20:58)
[2021-03-06] MEDS: famotidine 20mg tablet OGT SCH ×2 (08:04→20:58)
[2021-03-06] MEDS: CefTRIAXone 2gm/D5W 50ml BAG 50 ML IV SCH (08:04)
--- NOTE | 2021-03-06 09:00 | NUR ---
update to . pt paralyzed and sedated.sats 91 to 93. remains on dopamine for hr, as low as 35 yesterday. now in the 50's. update to nephew by phone
[2021-03-06] MEDS: NORepinephrine 8mg/ 250ml NS 250 ML IV SCH (12:05)
[2021-03-06] MEDS: DOPamine 400mg/D5W 250ml 250 ML IV PRN (13:10)
[2021-03-06] MEDS: ringers solution, lacted 1,000 ML IV SCH (13:15)
--- NOTE | 2021-03-06 13:33 | NUR ---
Reassessment: Pt remains intubated, on rotoprone bed per MD note. Pt tolerating TF at goal rate with GRV WNL. Noted serum Na elevated at 148 MMOL/L today. Pt would benefit from increase in water flush if serum Na continues to increase. LBM 03/04, receiving routine bowel care. Will continue to follow closely. Recommendations: 1) Continuous TF via OG tube using Vital AF with goal rate of 55 mL/hr to provide 1320 mL total volume/day, 1584 kcal, 99 g protein, and 1071 mL water 2) Additional 100 mL water flush Q4H; monitor serum Na 3) Prealbumin q Monday/ 4) Daily scaled weight 5) Routine bowel care 6) Monitor for scaled weight and adjust TF recommendations as appropriate Addendum: 03/06/21 at [address] Amended: Links added.
--- NOTE | 2021-03-06 19:00 | NUR ---
Patient in room CICU 2008. I have received report from shelton Richey RN and had the opportunity to ask questions and assume patient care.
[2021-03-06] MEDS ORDERED: VANCOMYCIN LEVEL IV ONE (19:30)
[2021-03-06] MEDS: insulin glargine (Lantus) pen - multi-dose SQ SCH (20:49)
[2021-03-06 22:01] LABS: HEMOGLOBIN A1C 6.8 % (4.5-6.2)
[2021-03-06 22:12] LABS: VANCOMYCIN,TROUGH 15.1 UG/ML (6.0-14.0)
[2021-03-07] VITALS (24 sets, daily range): BP systolic 120–152; BP diastolic 50–89
[2021-03-07] MEDS: mineral oil/petrolatum ophthal oint EACHEYE SCH ×4 (02:00→20:09)
[2021-03-07] MEDS: insulin regular, human U-100 3ml vial - multi-dose SQ SCH ×4 (02:26→20:12)
[2021-03-07] MEDS: methylPREDNISolone sod succ 125mg/2ml vial IV SCH ×4 (02:31→19:13)
[2021-03-07] MEDS: NORepinephrine 8mg/ 250ml NS 250 ML IV SCH ×2 (02:45→17:25)
[2021-03-07 03:07] LABS: BASOPHILS % (AUTO) 0.3 % (0-1); EOSINOPHILS % (AUTO) 0 % (0-6); HEMATOCRIT 35.8 % (42.0-52.0); HEMOGLOBIN 11.8 g/dl (14.0-17.9); LYMPHOCYTES # (AUTO) 0.5 X10'3 (1.1-4.8); LYMPHOCYTES % (AUTO) 5.6 % (21-51); MEAN CORPUSCULAR HEMOGLOBIN 30.9 PG (27.0-31.0); MEAN CORPUSCULAR HGB CONC 32.9 g/dL (33.0-36.5); MEAN CORPUSCULAR VOLUME 94.1 FL (78-98); MEAN PLATELET VOLUME 8.9 FL (7.4-10.4); MONOCYTES # (AUTO) 0.5 X10'3 (0-0.9); MONOCYTES % (AUTO) 5.6 % (2-12); NEUTROPHILS # (AUTO) 8.1 X10'3 (1.8-7.7); NEUTROPHILS % (AUTO) 88.5 % (42-75); PLATELET COUNT 329 X10'3 (140-440); RED BLOOD COUNT 3.81 X10'6 (4.70-6.10); RED CELL DISTRIBUTION WIDTH 12.8 % (11.5-14.5); WHITE BLOOD COUNT 9.1 X10'3 (4.5-11.0)
[2021-03-07 03:19] LABS: D-DIMER 3.87 MG/L FEU (0-0.50); PARTIAL THROMBOPLASTIN TIME 26 SECONDS (22-32)
[2021-03-07 03:41] LABS: ALANINE AMINOTRANSFERASE 47 U/L (12-78); ALBUMIN 1.6 G/DL (3.4-5.0); ALBUMIN/GLOBULIN RATIO 0.4 (1.1-1.5); ALKALINE PHOSPHATASE 75 IU/L (46-116); ANION GAP 3 (8-16); ASPARTATE AMINO TRANSFERASE 16 U/L (10-37); BILIRUBIN,TOTAL 0.3 MG/DL (0.1-1.0); BLOOD UREA NITROGEN 21 MG/DL (7-18); BUN/CREATININE RATIO 28.8 (5.4-32.0); C-REACTIVE PROTEIN 3.84 MG/DL (0.0-0.5); CALCIUM 7.5 MG/DL (8.5-10.1); CHLORIDE 113 MMOL/L (99-107); CREATININE 0.73 MG/DL (0.60-1.10); GLUCOSE 201 MG/DL (70-104); MAGNESIUM 2.4 MG/DL (1.5-2.4); PHOSPHORUS 2.9 MG/DL (2.3-4.5); POTASSIUM 4.6 MMOL/L (3.5-5.1); SODIUM 147 MMOL/L (135-145); TOTAL CARBON DIOXIDE 31.1 MMOL/L (24-32); TOTAL PROTEIN 5.7 G/DL (6.4-8.2); eGFR > 90 ML/MIN
--- NOTE | 2021-03-07 04:00 | NUR ---
case reviewed by dr. Turner, no no orders at this time.
[2021-03-07 04:03] LABS: ABG BASE EXCESS -2.2 mmol/L (-2.0-2.0); ABG OXYGEN SATURATION 91.1 % (94-97); FCOHb 0.3 % (0.0-3.9); FMetHb 0.3 % (0.0-1.5); FO2Hb 90.6 % (94-97); PATIENT TEMPERATURE 37.7; PEEP 14 cm H2O; RESPIRATORY RATE 26 b/min; TIDAL VOLUME 425 mL; TOTAL HEMOGLOBIN 12.5 G/dl (14.0-18.0)
[2021-03-07] MEDS: FENTANYL-0.9 % NACL/PF 100 ML IV PRN ×5 (04:36→19:15)
[2021-03-07] MEDS: midazolam 100mg in NS 100ml 100 ML IV PRN ×4 (04:36→19:14)
[2021-03-07] MEDS: CISatracurium besylate inj. 100 MG in normal saline 100ml IV soln 90 ML IV SCH ×2 (04:37→14:06)
--- NOTE | 2021-03-07 06:51 | NUR ---
Patient in room CICU 2007. I have received report from Eriberto CARRILLO and had the opportunity to ask questions and assume patient care.
[2021-03-07] MEDS: famotidine 20mg tablet OGT SCH ×2 (07:37→19:13)
[2021-03-07] MEDS: docusate sodium 100mg/10ml UD cup OGT SCH ×2 (07:37→19:13)
[2021-03-07] MEDS: enoxaparin 60mg/0.6ml syringe SUBCUT SCH (07:38)
[2021-03-07] MEDS: K and/or MAG REPLACEMENT MC SCH ×2 (07:57→20:00)
[2021-03-07] MEDS: CefTRIAXone 2gm/D5W 50ml BAG 50 ML IV SCH (08:00)
--- NOTE | 2021-03-07 08:59 | NUR ---
Art. line draws and flushes but not reading a BP. Pt. suppined to assess art. line. Sp02 dropped to 88%. Will try to further art. line when pt. is supined again, if he tolerates it. Bp cuff placed on arm.
--- NOTE | 2021-03-07 09:19 | NUR ---
FI02 turned up to 90% for Sp02 88%. now Sp02 92%.
--- NOTE | 2021-03-07 10:38 | NUR ---
Mark Bose called using PANOSOL to see pt. and get update.
--- NOTE | 2021-03-07 18:06 | NUR ---
Problems reprioritized. Patient report given, questions answered & plan of care reviewed with noc GERARDO Grace.
--- NOTE | 2021-03-07 18:30 | NUR ---
Patient in room CICU 2007. I have received report from GERARDO Britton and had the opportunity to ask questions and assume patient care.
[2021-03-07] MEDS: lactobacillus rhamnosus 10,000 MMU CELLS/CAPSULE OGT SCH (19:13)
[2021-03-07] MEDS: enoxaparin 80mg/0.8ml syringe SUBCUT SCH (19:13)
[2021-03-07] MEDS: DOPamine 400mg/D5W 250ml 250 ML IV PRN (19:14)
--- NOTE | 2021-03-07 20:00 | NUR ---
eye assessed when patient in supine position. Left eye blood shot, both eye with severe swelling. patient's faced was iced for 45 minutes, lacrilube applied bilaterally, and then eye pad and gauze taped over eyes.
[2021-03-07] MEDS: insulin glargine (Lantus) pen - multi-dose SQ SCH (20:13)
[2021-03-08] VITALS (24 sets, daily range): BP systolic 100–174; BP diastolic 43–91
[2021-03-08] MEDS: CISatracurium besylate inj. 100 MG in normal saline 100ml IV soln 90 ML IV SCH ×3 (00:25→16:57)
[2021-03-08] MEDS: insulin regular, human U-100 3ml vial - multi-dose SQ SCH ×4 (01:39→20:20)
[2021-03-08] MEDS: mineral oil/petrolatum ophthal oint EACHEYE SCH ×4 (01:40→19:54)
[2021-03-08] MEDS: methylPREDNISolone sod succ 125mg/2ml vial IV SCH ×4 (01:50→19:54)
[2021-03-08] MEDS: midazolam 100mg in NS 100ml 100 ML IV PRN ×4 (01:52→22:50)
[2021-03-08] MEDS: FENTANYL-0.9 % NACL/PF 100 ML IV PRN ×5 (01:54→20:59)
[2021-03-08 03:46] LABS: ABG BASE EXCESS 7.7 mmol/L (-2.0-2.0); ABG HCO3 33.1 mmol/L (22.0-26.0); ABG OXYGEN SATURATION 91.2 % (94-97); ABG PCO2 (T) 50.3 mmHg (35.0-48.0); ABG PO2 (T) 63.2 mmHg (75.0-100.0); FCOHb 0.2 % (0.0-3.9); FMetHb 0.2 % (0.0-1.5); FO2Hb 90.8 % (94-97); PATIENT TEMPERATURE 37.6; PEEP 15 cm H2O; TIDAL VOLUME 425 mL; TOTAL HEMOGLOBIN 13.3 G/dl (14.0-18.0)
[2021-03-08 03:59] LABS: D-DIMER 3.62 MG/L FEU (0-0.50); PARTIAL THROMBOPLASTIN TIME 26 SECONDS (22-32)
[2021-03-08 04:05] LABS: BASOPHILS % (AUTO) 0.3 % (0-1); EOSINOPHILS % (AUTO) 0 % (0-6); HEMATOCRIT 37.2 % (42.0-52.0); HEMOGLOBIN 12.3 g/dl (14.0-17.9); LYMPHOCYTES # (AUTO) 0.8 X10'3 (1.1-4.8); LYMPHOCYTES % (AUTO) 7.8 % (21-51); MEAN CORPUSCULAR HEMOGLOBIN 30.9 PG (27.0-31.0); MEAN CORPUSCULAR HGB CONC 33.1 g/dL (33.0-36.5); MEAN CORPUSCULAR VOLUME 93.4 FL (78-98); MEAN PLATELET VOLUME 8.7 FL (7.4-10.4); MONOCYTES # (AUTO) 0.8 X10'3 (0-0.9); MONOCYTES % (AUTO) 8.4 % (2-12); NEUTROPHILS # (AUTO) 8.4 X10'3 (1.8-7.7); NEUTROPHILS % (AUTO) 83.5 % (42-75); PLATELET COUNT 308 X10'3 (140-440); RED BLOOD COUNT 3.98 X10'6 (4.70-6.10); RED CELL DISTRIBUTION WIDTH 12.8 % (11.5-14.5)
[2021-03-08 04:12] LABS: ALANINE AMINOTRANSFERASE 40 U/L (12-78); ALBUMIN 1.7 G/DL (3.4-5.0); ALBUMIN/GLOBULIN RATIO 0.4 (1.1-1.5); ALKALINE PHOSPHATASE 64 IU/L (46-116); ANION GAP -1 (8-16); ASPARTATE AMINO TRANSFERASE 14 U/L (10-37); BILIRUBIN,TOTAL 0.4 MG/DL (0.1-1.0); BLOOD UREA NITROGEN 20 MG/DL (7-18); BUN/CREATININE RATIO 29.9 (5.4-32.0); C-REACTIVE PROTEIN 1.85 MG/DL (0.0-0.5); CALCIUM 7.6 MG/DL (8.5-10.1); CHLORIDE 109 MMOL/L (99-107); CREATININE 0.67 MG/DL (0.60-1.10); GLUCOSE 173 MG/DL (70-104); MAGNESIUM 2.2 MG/DL (1.5-2.4); PHOSPHORUS 3.3 MG/DL (2.3-4.5); POTASSIUM 4.6 MMOL/L (3.5-5.1); PREALBUMIN 24.2 MG/DL (19-36); SODIUM 142 MMOL/L (135-145); TOTAL CARBON DIOXIDE 34.3 MMOL/L (24-32); TOTAL PROTEIN 5.6 G/DL (6.4-8.2); eGFR > 90 ML/MIN
--- NOTE | 2021-03-08 06:20 | NUR ---
Problems reprioritized. Patient report given, questions answered & plan of care reviewed with GERARDO Britton.
--- NOTE | 2021-03-08 06:43 | NUR ---
[facility] I have received report from Lesly CARRILLO and had the opportunity to ask questions and assume patient care. Addendum: 03/08/21 at 0643 by Reba Hilliard RN Amended: Links added.
[2021-03-08] MEDS: CefTRIAXone 2gm/D5W 50ml BAG 50 ML IV SCH (07:31)
[2021-03-08] MEDS: famotidine 20mg tablet OGT SCH ×2 (07:31→19:54)
[2021-03-08] MEDS: docusate sodium 100mg/10ml UD cup OGT SCH ×2 (07:31→19:54)
[2021-03-08] MEDS: enoxaparin 80mg/0.8ml syringe SUBCUT SCH ×2 (07:31→19:54)
[2021-03-08] MEDS: lactobacillus rhamnosus 10,000 MMU CELLS/CAPSULE OGT SCH ×2 (07:31→19:54)
[2021-03-08] MEDS: K and/or MAG REPLACEMENT MC SCH ×2 (07:55→18:30)
[2021-03-08] MEDS ORDERED: DOPamine 400mg/D5W 250ml 250 ML IV SCH (08:10)
--- NOTE | 2021-03-08 08:18 | NUR ---
Dr. Kramer notified of bradycardia and HR down to 38 on noc shift and NOC MD dc'd Dopamine. Dr. Kramer stated to re-order and re-start Dopamine. Dopamine re-started.
--- NOTE | 2021-03-08 09:28 | NUR ---
Pt. supined for Rt to assess ETT. HR to 136 and BP 212/120. Dopamine turned off for now. Pt. quickly proned and vitals WNL. Dr. Kramer aware. Rad. Dr. Dubois called to report pneumo. Dr. Kramer notified and stated he would take a look at film.
--- NOTE | 2021-03-08 10:23 | NUR ---
Obtaining another CXR per Dr. Kramer to r/o pneumo.
[2021-03-08] MEDS ORDERED: magnesium citrate 296ml oral solution PO SCH (10:59)
--- NOTE | 2021-03-08 11:00 | NUR ---
In room for last hour for another CXR and for RT to change ETT securement device. Oral care and skin care provided. Pt. tolerated.
--- NOTE | 2021-03-08 11:07 | NUR ---
Dr. Kramer stated to stop Dopamine as it is causing pt. to be hypertensive. RN asked what to do if pt. becomes bradycardic (pt. was 38 HR last night) he stated "nothing if his BP is WNL".
--- NOTE | 2021-03-08 11:40 | NUR ---
F/u 03/08: Pt intubated on rotoprone tolerating TF at goal GRV WNL. Noted first scaled wt this admit 81.3kg making true BMI 29.8. NIKOLAS d/w who is agreeable to updating EN recs. NIKOLAS d/w RN regarding updated TF recs below and MD notified. LBM 03/04 w/ 4 days constipation receiving routine colace w/ mag citrate to start today per biological science technician at rounds. Will continue to monitor for nutrition support needs on vent. Recommendations: 1) Continuous TF via using Vital High Protein at goal rate of 75mL/hr to provide 1800mL total volume/day, 1800 kcal, 158g protein, and 1512mL water. Okay to initiate at 75ml/hr since tolerating Vital AF at 55ml/hr previously. 2) Additional 100 mL water flush Q4H; monitor serum Na for adjustment needs 3) Prealbumin q Monday/; daily wts 4) Routine bowel care Addendum: 03/08/21 at [address]ña [address] RD Amended: Links added.
[2021-03-08] MEDS: ringers solution, lacted 1,000 ML IV SCH (12:50)
[2021-03-08] MEDS ORDERED: dextrose ORAL solution 15 GM/59 ML bottle OGT PRN ×2 (14:55)
[2021-03-08] MEDS ORDERED: magnesium citrate 296ml oral solution OGT SCH (14:55)
--- NOTE | 2021-03-08 16:41 | NUR ---
Cassius (nephew) called for update and stated he will be spokesperson for family.
--- NOTE | 2021-03-08 16:43 | NUR ---
Dr. Kramer notified of bradycardia and hypotension. Orders received.
[2021-03-08] MEDS ORDERED: albumin (Human) 5% 250ml 250 ML IV ONE ×2 (16:45)
[2021-03-08] MEDS ORDERED: normal saline 1000ml 1,000 ML IV ONE (16:45)
--- NOTE | 2021-03-08 18:30 | NUR ---
Patient in room CICU 2007. I have received report from GERARDO Britton and had the opportunity to ask questions and assume patient care.
[2021-03-08] MEDS: insulin glargine (Lantus) pen - multi-dose SQ SCH (20:21)
[2021-03-09] VITALS (24 sets, daily range): BP systolic 70–179; BP diastolic 42–106
[2021-03-09] MEDS: FENTANYL-0.9 % NACL/PF 100 ML IV PRN ×6 (00:17→23:45)
[2021-03-09] MEDS: midazolam 100mg in NS 100ml 100 ML IV PRN ×5 (01:34→23:45)
[2021-03-09] MEDS: methylPREDNISolone sod succ 125mg/2ml vial IV SCH ×4 (01:34→19:30)
[2021-03-09] MEDS: CISatracurium besylate inj. 100 MG in normal saline 100ml IV soln 90 ML IV SCH ×3 (01:35→19:36)
[2021-03-09] MEDS: mineral oil/petrolatum ophthal oint EACHEYE SCH ×4 (02:11→19:35)
[2021-03-09] MEDS: insulin regular, human U-100 3ml vial - multi-dose SQ SCH ×4 (02:13→20:49)
[2021-03-09 03:32] LABS: BASOPHILS % (AUTO) 0.3 % (0-1); EOSINOPHILS % (AUTO) 0.1 % (0-6); HEMATOCRIT 37.2 % (42.0-52.0); LYMPHOCYTES # (AUTO) 1.3 X10'3 (1.1-4.8); LYMPHOCYTES % (AUTO) 10.5 % (21-51); MEAN CORPUSCULAR HEMOGLOBIN 30.5 PG (27.0-31.0); MEAN CORPUSCULAR HGB CONC 32.3 g/dL (33.0-36.5); MEAN CORPUSCULAR VOLUME 94.4 FL (78-98); MEAN PLATELET VOLUME 9.7 FL (7.4-10.4); MONOCYTES % (AUTO) 8.5 % (2-12); NEUTROPHILS # (AUTO) 9.6 X10'3 (1.8-7.7); NEUTROPHILS % (AUTO) 80.6 % (42-75); PLATELET COUNT 281 X10'3 (140-440); RED BLOOD COUNT 3.94 X10'6 (4.70-6.10); RED CELL DISTRIBUTION WIDTH 13.1 % (11.5-14.5); WHITE BLOOD COUNT 11.9 X10'3 (4.5-11.0)
[2021-03-09 03:40] LABS: D-DIMER 3.29 MG/L FEU (0-0.50); PARTIAL THROMBOPLASTIN TIME 27 SECONDS (22-32)
[2021-03-09 03:52] LABS: ALANINE AMINOTRANSFERASE 39 U/L (12-78); ALBUMIN 2.2 G/DL (3.4-5.0); ALBUMIN/GLOBULIN RATIO 0.7 (1.1-1.5); ALKALINE PHOSPHATASE 52 IU/L (46-116); ANION GAP 2 (8-16); ASPARTATE AMINO TRANSFERASE 14 U/L (10-37); BILIRUBIN,TOTAL 0.4 MG/DL (0.1-1.0); BLOOD UREA NITROGEN 25 MG/DL (7-18); BUN/CREATININE RATIO 41.7 (5.4-32.0); C-REACTIVE PROTEIN 1.04 MG/DL (0.0-0.5); CALCIUM 7.5 MG/DL (8.5-10.1); CHLORIDE 109 MMOL/L (99-107); GLUCOSE 129 MG/DL (70-104); MAGNESIUM 2.7 MG/DL (1.5-2.4); PHOSPHORUS 3.7 MG/DL (2.3-4.5); POTASSIUM 4.5 MMOL/L (3.5-5.1); SODIUM 144 MMOL/L (135-145); TOTAL PROTEIN 5.5 G/DL (6.4-8.2); eGFR > 90 ML/MIN
[2021-03-09 04:12] LABS: ABG BASE EXCESS 6.1 mmol/L (-2.0-2.0); ABG HCO3 31.5 mmol/L (22.0-26.0); ABG OXYGEN SATURATION 91.9 % (94-97); ABG PCO2 (T) 49.5 mmHg (35.0-48.0); ABG PO2 (T) 63.3 mmHg (75.0-100.0); FCOHb 0.3 % (0.0-3.9); FMetHb 0.2 % (0.0-1.5); FO2Hb 91.4 % (94-97); PATIENT TEMPERATURE 37.1; PEEP 15 cm H2O; RESPIRATORY RATE 26 b/min; TIDAL VOLUME 425 mL; TOTAL HEMOGLOBIN 11.6 G/dl (14.0-18.0)
--- NOTE | 2021-03-09 06:07 | NUR ---
Problems reprioritized. Patient report given, questions answered & plan of care reviewed with GERARDO Britton.
--- NOTE | 2021-03-09 06:28 | NUR ---
[facility] I have received report from Lesly CARRILLO and had the opportunity to ask questions and assume patient care. Addendum: 03/09/21 at 5201 by Reba Hilliard RN Amended: Links added.
[2021-03-09] MEDS: CefTRIAXone 2gm/D5W 50ml BAG 50 ML IV SCH (07:30)
[2021-03-09] MEDS: K and/or MAG REPLACEMENT MC SCH ×2 (07:30→18:30)
[2021-03-09] MEDS: docusate sodium 100mg/10ml UD cup OGT SCH ×2 (07:30→19:30)
[2021-03-09] MEDS: lactobacillus rhamnosus 10,000 MMU CELLS/CAPSULE OGT SCH ×2 (07:30→19:30)
[2021-03-09] MEDS: famotidine 20mg tablet OGT SCH ×2 (07:31→19:31)
[2021-03-09] MEDS: enoxaparin 80mg/0.8ml syringe SUBCUT SCH ×2 (07:31→19:31)
--- NOTE | 2021-03-09 08:52 | NUR ---
Supined pt. at 0800. Proned at 0850 for SP02 85%. Dr. Kramer aware.
--- NOTE | 2021-03-09 11:52 | NUR ---
F/u 03/09: Per supervisor in charge pt with copious amount of stool following Mag-Citrate. Addendum: 03/09/21 at [address] Amended: Links added.
--- NOTE | 2021-03-09 15:13 | NUR ---
Dr. Kramer aware that pt. is tolerating supine. Stated to let him supine and to prone him "tonight" and take him off [place] bed tomorrow.
--- NOTE | 2021-03-09 18:07 | NUR ---
Problems reprioritized. Patient report given, questions answered & plan of care reviewed with Lesly CARRILLO.
--- NOTE | 2021-03-09 18:32 | NUR ---
Patient in room CICU 2007. I have received report from GERARDO Britton and had the opportunity to ask questions and assume patient care.
[2021-03-09] MEDS: insulin glargine (Lantus) pen - multi-dose SQ SCH (20:50)
[2021-03-10] VITALS (24 sets, daily range): BP systolic 98–159; BP diastolic 40–76
[2021-03-10] MEDS: insulin regular, human U-100 3ml vial - multi-dose SQ SCH ×4 (02:08→19:48)
[2021-03-10] MEDS: FENTANYL-0.9 % NACL/PF 100 ML IV PRN ×5 (02:09→19:32)
[2021-03-10] MEDS: methylPREDNISolone sod succ 125mg/2ml vial IV SCH ×4 (02:09→19:32)
[2021-03-10] MEDS: mineral oil/petrolatum ophthal oint EACHEYE SCH ×4 (02:09→19:33)
[2021-03-10 02:48] LABS: BASOPHILS % (AUTO) 0.2 % (0-1); EOSINOPHILS % (AUTO) 0 % (0-6); HEMATOCRIT 34.5 % (42.0-52.0); HEMOGLOBIN 11.4 g/dl (14.0-17.9); LYMPHOCYTES # (AUTO) 0.6 X10'3 (1.1-4.8); LYMPHOCYTES % (AUTO) 5.5 % (21-51); MEAN CORPUSCULAR HEMOGLOBIN 30.8 PG (27.0-31.0); MEAN CORPUSCULAR VOLUME 93.4 FL (78-98); MEAN PLATELET VOLUME 9.1 FL (7.4-10.4); MONOCYTES # (AUTO) 0.7 X10'3 (0-0.9); MONOCYTES % (AUTO) 6.3 % (2-12); NEUTROPHILS # (AUTO) 9.8 X10'3 (1.8-7.7); PLATELET COUNT 244 X10'3 (140-440); RED CELL DISTRIBUTION WIDTH 12.8 % (11.5-14.5); WHITE BLOOD COUNT 11.2 X10'3 (4.5-11.0)
[2021-03-10 03:10] LABS: PARTIAL THROMBOPLASTIN TIME 27 SECONDS (22-32)
[2021-03-10 03:15] LABS: ALANINE AMINOTRANSFERASE 39 U/L (12-78); ALBUMIN 1.9 G/DL (3.4-5.0); ALBUMIN/GLOBULIN RATIO 0.7 (1.1-1.5); ALKALINE PHOSPHATASE 48 IU/L (46-116); ANION GAP 5 (8-16); ASPARTATE AMINO TRANSFERASE 16 U/L (10-37); BILIRUBIN,TOTAL 0.4 MG/DL (0.1-1.0); BLOOD UREA NITROGEN 28 MG/DL (7-18); C-REACTIVE PROTEIN 0.57 MG/DL (0.0-0.5); CALCIUM 7.2 MG/DL (8.5-10.1); CHLORIDE 107 MMOL/L (99-107); CREATININE 0.56 MG/DL (0.60-1.10); GLUCOSE 170 MG/DL (70-104); MAGNESIUM 2.3 MG/DL (1.5-2.4); PHOSPHORUS 3.6 MG/DL (2.3-4.5); POTASSIUM 4.8 MMOL/L (3.5-5.1); SODIUM 145 MMOL/L (135-145); TOTAL CARBON DIOXIDE 33.4 MMOL/L (24-32); TOTAL PROTEIN 4.8 G/DL (6.4-8.2); eGFR > 90 ML/MIN
[2021-03-10 03:56] LABS: ABG BASE EXCESS -0.3 mmol/L (-2.0-2.0); ABG OXYGEN SATURATION 94.3 % (94-97); ABG PCO2 (T) 38.3 mmHg (35.0-48.0); ABG PO2 (T) 77.5 mmHg (75.0-100.0); FCOHb 0.3 % (0.0-3.9); FMetHb 0.2 % (0.0-1.5); FO2Hb 93.8 % (94-97); PATIENT TEMPERATURE 37.2; PEEP 15 cm H2O; RESPIRATORY RATE 26 b/min; TIDAL VOLUME 425 mL; TOTAL HEMOGLOBIN 11.5 G/dl (14.0-18.0)
[2021-03-10] MEDS: CISatracurium besylate inj. 100 MG in normal saline 100ml IV soln 90 ML IV SCH ×3 (04:25→18:02)
--- NOTE | 2021-03-10 06:14 | NUR ---
Problems reprioritized. Patient report given, questions answered & plan of care reviewed with GERARDO Elliott.
--- NOTE | 2021-03-10 06:44 | NUR ---
Patient in room CICU 2008. I have received report from Lesly CARRILLO and had the opportunity to ask questions and assume patient care.
[2021-03-10] MEDS: docusate sodium 100mg/10ml UD cup OGT SCH ×2 (07:53→19:32)
[2021-03-10] MEDS: lactobacillus rhamnosus 10,000 MMU CELLS/CAPSULE OGT SCH ×2 (07:53→19:33)
[2021-03-10] MEDS: famotidine 20mg tablet OGT SCH ×2 (07:53→19:32)
[2021-03-10] MEDS: enoxaparin 80mg/0.8ml syringe SUBCUT SCH ×2 (07:54→19:34)
[2021-03-10] MEDS: midazolam 100mg in NS 100ml 100 ML IV PRN ×3 (08:12→19:32)
[2021-03-10] MEDS: K and/or MAG REPLACEMENT MC SCH ×2 (08:32→19:33)
[2021-03-10] MEDS: ringers solution, lacted 1,000 ML IV SCH (12:50)
--- NOTE | 2021-03-10 18:20 | NUR ---
Problems reprioritized. Patient report given, questions answered & plan of care reviewed with Jazmine Majano.
--- NOTE | 2021-03-10 18:30 | NUR ---
Patient in room CICU 2007. I have received report from Lexi CARRILLO and had the opportunity to ask questions and assume patient care.
[2021-03-10] MEDS: insulin glargine (Lantus) pen - multi-dose SQ SCH (19:49)
[2021-03-11] VITALS (23 sets, daily range): BP systolic 95–144; BP diastolic 42–82
[2021-03-11] MEDS: FENTANYL-0.9 % NACL/PF 100 ML IV PRN ×7 (00:22→20:26)
[2021-03-11] MEDS: midazolam 100mg in NS 100ml 100 ML IV PRN ×5 (00:54→21:20)
[2021-03-11] MEDS: methylPREDNISolone sod succ 125mg/2ml vial IV SCH ×4 (01:59→19:35)
[2021-03-11] MEDS: CISatracurium besylate inj. 100 MG in normal saline 100ml IV soln 90 ML IV SCH ×4 (02:01→20:25)
[2021-03-11] MEDS: mineral oil/petrolatum ophthal oint EACHEYE SCH ×4 (02:02→20:26)
[2021-03-11] MEDS: insulin regular, human U-100 3ml vial - multi-dose SQ SCH ×4 (02:04→20:24)
[2021-03-11 02:48] LABS: BASOPHILS % (AUTO) 0.1 % (0-1); EOSINOPHILS % (AUTO) 0 % (0-6); HEMATOCRIT 36.3 % (42.0-52.0); HEMOGLOBIN 11.7 g/dl (14.0-17.9); LYMPHOCYTES # (AUTO) 0.6 X10'3 (1.1-4.8); LYMPHOCYTES % (AUTO) 3.6 % (21-51); MEAN CORPUSCULAR HEMOGLOBIN 30.2 PG (27.0-31.0); MEAN CORPUSCULAR HGB CONC 32.1 g/dL (33.0-36.5); MEAN PLATELET VOLUME 9.8 FL (7.4-10.4); MONOCYTES % (AUTO) 6.3 % (2-12); NEUTROPHILS # (AUTO) 14.5 X10'3 (1.8-7.7); PLATELET COUNT 254 X10'3 (140-440); RED BLOOD COUNT 3.86 X10'6 (4.70-6.10); RED CELL DISTRIBUTION WIDTH 12.9 % (11.5-14.5); WHITE BLOOD COUNT 16.1 X10'3 (4.5-11.0)
[2021-03-11 03:10] LABS: D-DIMER 2.51 MG/L FEU (0-0.50); PARTIAL THROMBOPLASTIN TIME 26 SECONDS (22-32)
[2021-03-11 03:26] LABS: ABG BASE EXCESS 6.2 mmol/L (-2.0-2.0); ABG HCO3 31.7 mmol/L (22.0-26.0); ABG OXYGEN SATURATION 95.6 % (94-97); ABG PCO2 (T) 49.9 mmHg (35.0-48.0); ABG PO2 (T) 80.7 mmHg (75.0-100.0); FCOHb 0.3 % (0.0-3.9); FMetHb 0.3 % (0.0-1.5); PATIENT TEMPERATURE 37.1; PEEP 15 cm H2O; RESPIRATORY RATE 26 b/min; TIDAL VOLUME 425 mL; TOTAL HEMOGLOBIN 12.2 G/dl (14.0-18.0)
[2021-03-11 03:40] LABS: ALANINE AMINOTRANSFERASE 50 U/L (12-78); ALBUMIN 1.9 G/DL (3.4-5.0); ALBUMIN/GLOBULIN RATIO 0.6 (1.1-1.5); ALKALINE PHOSPHATASE 51 IU/L (46-116); ANION GAP 4 (8-16); ASPARTATE AMINO TRANSFERASE 22 U/L (10-37); BILIRUBIN,TOTAL 0.5 MG/DL (0.1-1.0); BLOOD UREA NITROGEN 30 MG/DL (7-18); BUN/CREATININE RATIO 57.7 (5.4-32.0); C-REACTIVE PROTEIN 0.41 MG/DL (0.0-0.5); CALCIUM 7.7 MG/DL (8.5-10.1); CHLORIDE 105 MMOL/L (99-107); CREATININE 0.52 MG/DL (0.60-1.10); GLUCOSE 157 MG/DL (70-104); MAGNESIUM 2.4 MG/DL (1.5-2.4); PHOSPHORUS 4.1 MG/DL (2.3-4.5); POTASSIUM 4.9 MMOL/L (3.5-5.1); PREALBUMIN 39.2 MG/DL (19-36); SODIUM 141 MMOL/L (135-145); TOTAL CARBON DIOXIDE 32.1 MMOL/L (24-32); eGFR > 90 ML/MIN
[2021-03-11] MEDS ORDERED: propofol 1000mg/100ml bottle 100 ML IV ONE (05:02)
[2021-03-11] MEDS: propofol 1000mg/100ml bottle 100 ML IV SCH (05:09)
[2021-03-11 05:33] LABS: ABG HCO3 31.2 mmol/L (22.0-26.0); ABG OXYGEN SATURATION 96.4 % (94-97); ABG PCO2 (T) 47.6 mmHg (35.0-48.0); ABG PO2 (T) 91.3 mmHg (75.0-100.0); FCOHb 0.3 % (0.0-3.9); FMetHb 0.3 % (0.0-1.5); FO2Hb 95.8 % (94-97); PEEP 13 cm H2O; RESPIRATORY RATE 26 b/min; TIDAL VOLUME 425 mL; TOTAL HEMOGLOBIN 12.8 G/dl (14.0-18.0)
--- NOTE | 2021-03-11 06:48 | NUR ---
Patient in room CICU 2008. I have received report from Jazmine CARRILLO and had the opportunity to ask questions and assume patient care.
[2021-03-11] MEDS: famotidine 20mg tablet OGT SCH ×2 (07:38→19:37)
[2021-03-11] MEDS: lactobacillus rhamnosus 10,000 MMU CELLS/CAPSULE OGT SCH ×2 (07:39→19:35)
[2021-03-11] MEDS: enoxaparin 80mg/0.8ml syringe SUBCUT SCH ×2 (07:39→19:36)
[2021-03-11] MEDS: docusate sodium 100mg/10ml UD cup OGT SCH ×2 (07:39→19:35)
[2021-03-11] MEDS: K and/or MAG REPLACEMENT MC SCH ×2 (08:00→19:38)
[2021-03-11] MEDS ORDERED: tPA-cathflo 2 MG/2 ml IV flush IVF ONE (09:40)
--- NOTE | 2021-03-11 12:02 | NUR ---
Reassessment: Pt remains intubated and tolerating TF at goal rate with GRV WNL. Noted pt started on Propofol, currently at 2.55 mL/hr providing an insignificant amount of kcal at this time. LBM 03/10 documented with 300 mL stool output per I&O. Pt continues receiving routine bowel care. Will continue to follow closely and make recommendations as appropriate. Recommendations: 1) Continuous TF via using Vital High Protein at goal rate of 75mL/hr to provide 1800mL total volume/day, 1800 kcal, 158g protein, and 1512mL water. Okay to initiate at 75ml/hr since tolerating Vital AF at 55ml/hr previously. 2) Additional 100 mL water flush Q4H; monitor serum Na for adjustment needs 3) Prealbumin q Monday/; daily wts 4) Routine bowel care 5) Monitor Propofol rate and need to adjust TF recommendations Addendum: 03/11/21 at [address] Amended: Links added.
--- NOTE | 2021-03-11 18:25 | NUR ---
Problems reprioritized. Patient report given, questions answered & plan of care reviewed with Kenzie CARRILLO.
--- NOTE | 2021-03-11 18:30 | NUR ---
received report from GERARDO Elliott; reviewed plan of care, questions answered; pt remains prone on rotoprone bed; sedated and paralyzed; tolerating proning well; good volumes on vent, sats 92-94%; VSS, no temp;
[2021-03-11] MEDS: insulin glargine (Lantus) pen - multi-dose SQ SCH (20:22)
--- NOTE | 2021-03-11 21:00 | NUR ---
Pt supine x 40minutes; tolerated well, sats remained mid nineties; ice pack to swollen eyes lids and lips; no change in sedation; good UO; VSS stable.
[2021-03-12] VITALS (27 sets, daily range): BP systolic 100–162; BP diastolic 41–80
[2021-03-12] MEDS: FENTANYL-0.9 % NACL/PF 100 ML IV PRN ×8 (00:22→21:44)
[2021-03-12] MEDS: methylPREDNISolone sod succ 125mg/2ml vial IV SCH ×3 (01:21→15:24)
[2021-03-12] MEDS: mineral oil/petrolatum ophthal oint EACHEYE SCH ×4 (01:40→20:50)
[2021-03-12] MEDS: insulin regular, human U-100 3ml vial - multi-dose SQ SCH ×4 (01:40→21:11)
[2021-03-12] MEDS: midazolam 100mg in NS 100ml 100 ML IV PRN ×4 (02:06→21:44)
[2021-03-12] MEDS: CISatracurium besylate inj. 100 MG in normal saline 100ml IV soln 90 ML IV SCH ×4 (02:07→20:52)
[2021-03-12 02:46] LABS: BASOPHILS % (AUTO) 0.2 % (0-1); EOSINOPHILS % (AUTO) 0 % (0-6); HEMATOCRIT 32.1 % (42.0-52.0); HEMOGLOBIN 10.6 g/dl (14.0-17.9); LYMPHOCYTES # (AUTO) 0.7 X10'3 (1.1-4.8); LYMPHOCYTES % (AUTO) 6.1 % (21-51); MEAN CORPUSCULAR HEMOGLOBIN 30.5 PG (27.0-31.0); MEAN CORPUSCULAR HGB CONC 32.9 g/dL (33.0-36.5); MEAN CORPUSCULAR VOLUME 92.7 FL (78-98); MEAN PLATELET VOLUME 9.9 FL (7.4-10.4); MONOCYTES # (AUTO) 0.9 X10'3 (0-0.9); MONOCYTES % (AUTO) 7.1 % (2-12); NEUTROPHILS # (AUTO) 10.6 X10'3 (1.8-7.7); NEUTROPHILS % (AUTO) 86.6 % (42-75); PLATELET COUNT 222 X10'3 (140-440); RED BLOOD COUNT 3.47 X10'6 (4.70-6.10); WHITE BLOOD COUNT 12.2 X10'3 (4.5-11.0)
[2021-03-12 03:13] LABS: D-DIMER 2.22 MG/L FEU (0-0.50); PARTIAL THROMBOPLASTIN TIME 27 SECONDS (22-32)
[2021-03-12 03:19] LABS: ABG BASE EXCESS 8.9 mmol/L (-2.0-2.0); ABG HCO3 35.7 mmol/L (22.0-26.0); ABG OXYGEN SATURATION 92.7 % (94-97); ABG PCO2 (T) 58.2 mmHg (35.0-48.0); ABG PO2 (T) 68.8 mmHg (75.0-100.0); FCOHb 0.2 % (0.0-3.9); FMetHb 0.3 % (0.0-1.5); FO2Hb 92.2 % (94-97); PEEP 13 cm H2O; RESPIRATORY RATE 26 b/min; TIDAL VOLUME 425 mL; TOTAL HEMOGLOBIN 13.3 G/dl (14.0-18.0)
--- NOTE | 2021-03-12 03:25 | NUR ---
Pt supine x 40mins for linen change and bath; tolerated well; once bed returned to prone pt appeared more agitated (?); HR up 80-90s, BP 160s; increased diprivan to 10mcg/kg/min; AM ABG w/o changes to vent; AM labs WNL.
[2021-03-12 03:26] LABS: ALANINE AMINOTRANSFERASE 72 U/L (12-78); ALBUMIN 1.7 G/DL (3.4-5.0); ALBUMIN/GLOBULIN RATIO 0.6 (1.1-1.5); ALKALINE PHOSPHATASE 49 IU/L (46-116); ANION GAP 0 (8-16); ASPARTATE AMINO TRANSFERASE 24 U/L (10-37); BILIRUBIN,TOTAL 0.4 MG/DL (0.1-1.0); BLOOD UREA NITROGEN 26 MG/DL (7-18); BUN/CREATININE RATIO 46.4 (5.4-32.0); CALCIUM 7.4 MG/DL (8.5-10.1); CHLORIDE 106 MMOL/L (99-107); CREATININE 0.56 MG/DL (0.60-1.10); GLUCOSE 139 MG/DL (70-104); MAGNESIUM 2.5 MG/DL (1.5-2.4); PHOSPHORUS 3.9 MG/DL (2.3-4.5); POTASSIUM 4.8 MMOL/L (3.5-5.1); SODIUM 142 MMOL/L (135-145); TOTAL CARBON DIOXIDE 35.7 MMOL/L (24-32); TOTAL PROTEIN 4.5 G/DL (6.4-8.2); eGFR > 90 ML/MIN
--- NOTE | 2021-03-12 06:30 | NUR ---
Patient in room CICU 2008. I have received report from khoi and had the opportunity to ask questions and assume patient care.
--- NOTE | 2021-03-12 06:31 | NUR ---
Report given to Solange, update given
[2021-03-12] MEDS: K and/or MAG REPLACEMENT MC SCH ×2 (08:00→20:00)
[2021-03-12] MEDS: enoxaparin 80mg/0.8ml syringe SUBCUT SCH ×2 (08:42→20:49)
[2021-03-12] MEDS: famotidine 20mg tablet OGT SCH ×2 (08:42→20:49)
[2021-03-12] MEDS: docusate sodium 100mg/10ml UD cup OGT SCH ×2 (08:42→20:48)
[2021-03-12] MEDS: lactobacillus rhamnosus 10,000 MMU CELLS/CAPSULE OGT SCH ×2 (08:43→20:49)
[2021-03-12] MEDS: propofol 1000mg/100ml bottle 100 ML IV SCH (09:33)
--- NOTE | 2021-03-12 11:00 | NUR ---
pt to supine position -opened cushioned. ice to face. red area on left cheek-open - cushion to area. sats from 95 to 89. hr 55 to 46. back to prone.. pt remains paralyzed and sedated. no changes in vent or iv gtts. solumedrol changed by md. oscar jacksonl
[2021-03-12] MEDS: ringers solution, lacted 1,000 ML IV SCH (13:24)
--- NOTE | 2021-03-12 17:23 | NUR ---
hr now up to 56 and sats to 94%. md notified of radiologists call this am.about small rt pneumothorax- aware.
[2021-03-12] MEDS: insulin glargine (Lantus) pen - multi-dose SQ SCH (21:13)
[2021-03-13] VITALS (26 sets, daily range): BP systolic 94–140; BP diastolic 42–72
[2021-03-13] MEDS: methylPREDNISolone sod succ 125mg/2ml vial IV SCH ×3 (00:37→16:00)
[2021-03-13] MEDS: FENTANYL-0.9 % NACL/PF 100 ML IV PRN ×7 (00:38→23:05)
[2021-03-13] MEDS: mineral oil/petrolatum ophthal oint EACHEYE SCH ×4 (02:25→19:14)
[2021-03-13] MEDS: CISatracurium besylate inj. 100 MG in normal saline 100ml IV soln 90 ML IV SCH ×4 (02:27→16:13)
[2021-03-13] MEDS: insulin regular, human U-100 3ml vial - multi-dose SQ SCH ×3 (02:49→14:56)
[2021-03-13 03:55] LABS: BASOPHILS % (AUTO) 0.1 % (0-1); EOSINOPHILS % (AUTO) 0.1 % (0-6); HEMATOCRIT 33.6 % (42.0-52.0); HEMOGLOBIN 10.8 g/dl (14.0-17.9); LYMPHOCYTES % (AUTO) 5.5 % (21-51); MEAN CORPUSCULAR HEMOGLOBIN 30.3 PG (27.0-31.0); MEAN CORPUSCULAR HGB CONC 32.2 g/dL (33.0-36.5); MEAN CORPUSCULAR VOLUME 94.1 FL (78-98); MEAN PLATELET VOLUME 10.3 FL (7.4-10.4); MONOCYTES % (AUTO) 5.6 % (2-12); NEUTROPHILS # (AUTO) 15.3 X10'3 (1.8-7.7); NEUTROPHILS % (AUTO) 88.7 % (42-75); PLATELET COUNT 231 X10'3 (140-440); RED BLOOD COUNT 3.57 X10'6 (4.70-6.10); RED CELL DISTRIBUTION WIDTH 12.9 % (11.5-14.5); WHITE BLOOD COUNT 17.3 X10'3 (4.5-11.0)
[2021-03-13 03:57] LABS: D-DIMER 1.82 MG/L FEU (0-0.50); PARTIAL THROMBOPLASTIN TIME 27 SECONDS (22-32)
[2021-03-13 04:03] LABS: ALANINE AMINOTRANSFERASE 94 U/L (12-78); ALBUMIN 1.8 G/DL (3.4-5.0); ALBUMIN/GLOBULIN RATIO 0.7 (1.1-1.5); ALKALINE PHOSPHATASE 48 IU/L (46-116); ANION GAP 1 (8-16); ASPARTATE AMINO TRANSFERASE 24 U/L (10-37); BILIRUBIN,TOTAL 0.3 MG/DL (0.1-1.0); BLOOD UREA NITROGEN 27 MG/DL (7-18); C-REACTIVE PROTEIN 0.14 MG/DL (0.0-0.5); CALCIUM 7.5 MG/DL (8.5-10.1); CHLORIDE 107 MMOL/L (99-107); CREATININE 0.45 MG/DL (0.60-1.10); GLUCOSE 129 MG/DL (70-104); MAGNESIUM 2.2 MG/DL (1.5-2.4); PHOSPHORUS 4.3 MG/DL (2.3-4.5); POTASSIUM 4.7 MMOL/L (3.5-5.1); SODIUM 143 MMOL/L (135-145); TOTAL CARBON DIOXIDE 34.6 MMOL/L (24-32); TOTAL PROTEIN 4.5 G/DL (6.4-8.2); eGFR > 90 ML/MIN
[2021-03-13] MEDS: propofol 1000mg/100ml bottle 100 ML IV SCH ×3 (04:03→19:14)
[2021-03-13] MEDS: midazolam 100mg in NS 100ml 100 ML IV PRN ×4 (04:06→19:21)
[2021-03-13 04:20] LABS: ABG BASE EXCESS 9.6 mmol/L (-2.0-2.0); ABG HCO3 35.2 mmol/L (22.0-26.0); ABG OXYGEN SATURATION 91.6 % (94-97); ABG PCO2 (T) 52.6 mmHg (35.0-48.0); ABG PO2 (T) 62.1 mmHg (75.0-100.0); FCOHb 0.3 % (0.0-3.9); FMetHb 0.3 % (0.0-1.5); FO2Hb 91.1 % (94-97); PEEP 13 cm H2O; RESPIRATORY RATE 26 b/min; TIDAL VOLUME 425 mL; TOTAL HEMOGLOBIN 11.8 G/dl (14.0-18.0)
--- NOTE | 2021-03-13 06:30 | NUR ---
Patient in room CICU 2007. [place] [facility] [place] opportunity to ask questions and assume patient care.
[2021-03-13] MEDS: ringers solution, lacted 1,000 ML IV SCH (07:17)
[2021-03-13] MEDS: famotidine 20mg tablet OGT SCH ×2 (07:19→19:15)
[2021-03-13] MEDS: lactobacillus rhamnosus 10,000 MMU CELLS/CAPSULE OGT SCH ×2 (07:19→19:15)
[2021-03-13] MEDS: enoxaparin 80mg/0.8ml syringe SUBCUT SCH ×2 (07:20→19:16)
[2021-03-13] MEDS: K and/or MAG REPLACEMENT MC SCH ×2 (08:00→18:56)
[2021-03-13] MEDS: docusate sodium 100mg/10ml UD cup OGT SCH ×2 (08:00→19:15)
--- NOTE | 2021-03-13 12:00 | NUR ---
rotoprone bed malfunctioned, stopped- manually turned to prone at level 0. rotoprone tech called- instructed 2 nurses on resetting bed, battery- now functioning. pt tolerated supine and prone- sats 90 to 93%. hr to 80's now. new open area on rt cheek along with area on left cheek- pictures taken
--- NOTE | 2021-03-13 12:00 | NUR ---
with bed supine off and on- sats to 88%- slowly recover to 92%
--- NOTE | 2021-03-13 14:11 | NUR ---
diprivan off x 10' during bed moving supine to prone. hr to 108, sbp to 178. diprivan restarted with 5cc bolus. sbp to 112, hr to 72
[2021-03-13] MEDS ORDERED: furosemide 40mg/4ml inj IV ONE (17:00)
--- NOTE | 2021-03-13 18:15 | NUR ---
Patient in room CICU 2007. I have received report from Solange Avila RN and had the opportunity to ask questions and assume patient care. Patient is paralyzed, sedated, intubated on the roto prone bed. Patient on ventilator A/C PRVC rate of 26, FiO2 85%, PEEP of 13. with a oxygen saturation of 93%.
[2021-03-13] MEDS: furosemide 40mg/4ml inj IV SCH (18:53)
[2021-03-13] MEDS: dextrose 50%-water 50ml dispensing syringe IV PRN (19:43)
--- NOTE | 2021-03-13 21:18 | NUR ---
Phone call with Dr. Beck Re: Positive blood culture in the anaerobic sample of Gram - Rods. Currently the patient does not have antibiotic coverage. ORDER to start: Zosyn 3.375 gm IV every 6 hours. Addressed the critical low blood glucose of 38 that was treated with D50 and repeat blood glucose came back to 189. PER MD HOLD Regular insulin coverage for this time. Okay to give Lantus ordered dose of 20 units.
[2021-03-13] MEDS: insulin glargine (Lantus) pen - multi-dose SQ SCH (21:42)
[2021-03-14] VITALS (23 sets, daily range): BP systolic 93–144; BP diastolic 42–92
[2021-03-14] MEDS: midazolam 100mg in NS 100ml 100 ML IV PRN ×5 (00:53→21:14)
[2021-03-14] MEDS: methylPREDNISolone sod succ 125mg/2ml vial IV SCH ×3 (00:58→15:28)
[2021-03-14] MEDS: mineral oil/petrolatum ophthal oint EACHEYE SCH ×4 (02:08→19:20)
[2021-03-14] MEDS: piperacillin/tazo 3.375gm/50ml 50 ML IV SCH ×4 (02:09→19:17)
[2021-03-14] MEDS: FENTANYL-0.9 % NACL/PF 100 ML IV PRN ×7 (02:15→21:56)
[2021-03-14] MEDS: insulin regular, human U-100 3ml vial - multi-dose SQ SCH ×4 (02:45→19:43)
[2021-03-14] MEDS: CISatracurium besylate inj. 100 MG in normal saline 100ml IV soln 90 ML IV SCH ×3 (02:50→22:54)
--- NOTE | 2021-03-14 03:15 | NUR ---
Patient placed supine. Not tolerating as well as earlier tonight, had brief transient episode of bradycardia to the 30's, BP maintained during episode. During supine positioning, patient with decrease in oxygen saturation to the mid to high 80's. Once placed back to prone position patient took a while to recover from being supine.
[2021-03-14 03:36] LABS: ABG BASE EXCESS 10.4 mmol/L (-2.0-2.0); ABG HCO3 34.7 mmol/L (22.0-26.0); ABG OXYGEN SATURATION 90.8 % (94-97); ABG PCO2 (T) 45.5 mmHg (35.0-48.0); ABG PO2 (T) 59.3 mmHg (75.0-100.0); FCOHb 0.3 % (0.0-3.9); FMetHb 0.1 % (0.0-1.5); FO2Hb 90.4 % (94-97); PATIENT TEMPERATURE 37.2; PEEP 13 cm H2O; RESPIRATORY RATE 26 b/min; TIDAL VOLUME 425 mL; TOTAL HEMOGLOBIN 11.2 G/dl (14.0-18.0)
[2021-03-14 03:45] LABS: BASOPHILS % (AUTO) 0.1 % (0-1); EOSINOPHILS % (AUTO) 0.1 % (0-6); HEMATOCRIT 31.6 % (42.0-52.0); HEMOGLOBIN 10.3 g/dl (14.0-17.9); LYMPHOCYTES # (AUTO) 0.9 X10'3 (1.1-4.8); MEAN CORPUSCULAR HEMOGLOBIN 30.8 PG (27.0-31.0); MEAN CORPUSCULAR HGB CONC 32.7 g/dL (33.0-36.5); MEAN PLATELET VOLUME 9.5 FL (7.4-10.4); MONOCYTES # (AUTO) 0.9 X10'3 (0-0.9); MONOCYTES % (AUTO) 5.1 % (2-12); NEUTROPHILS # (AUTO) 15.2 X10'3 (1.8-7.7); NEUTROPHILS % (AUTO) 89.7 % (42-75); PLATELET COUNT 212 X10'3 (140-440); RED BLOOD COUNT 3.36 X10'6 (4.70-6.10); RED CELL DISTRIBUTION WIDTH 13.5 % (11.5-14.5); WHITE BLOOD COUNT 16.9 X10'3 (4.5-11.0)
[2021-03-14 03:59] LABS: D-DIMER 1.99 MG/L FEU (0-0.50); PARTIAL THROMBOPLASTIN TIME 25 SECONDS (22-32)
[2021-03-14 04:05] LABS: ALANINE AMINOTRANSFERASE 113 U/L (12-78); ALBUMIN 1.7 G/DL (3.4-5.0); ALBUMIN/GLOBULIN RATIO 0.6 (1.1-1.5); ALKALINE PHOSPHATASE 51 IU/L (46-116); ANION GAP 0 (8-16); ASPARTATE AMINO TRANSFERASE 24 U/L (10-37); BILIRUBIN,TOTAL 0.3 MG/DL (0.1-1.0); BLOOD UREA NITROGEN 30 MG/DL (7-18); BUN/CREATININE RATIO 56.6 (5.4-32.0); CALCIUM 7.7 MG/DL (8.5-10.1); CHLORIDE 106 MMOL/L (99-107); CREATININE 0.53 MG/DL (0.60-1.10); GLUCOSE 121 MG/DL (70-104); MAGNESIUM 2.4 MG/DL (1.5-2.4); PHOSPHORUS 5.1 MG/DL (2.3-4.5); POTASSIUM 4.7 MMOL/L (3.5-5.1); SODIUM 144 MMOL/L (135-145); TOTAL CARBON DIOXIDE 38.2 MMOL/L (24-32); TOTAL PROTEIN 4.4 G/DL (6.4-8.2); eGFR > 90 ML/MIN
--- NOTE | 2021-03-14 06:14 | NUR ---
Problems reprioritized. Patient report given, questions answered & plan of care reviewed with GERARDO rBitton.
--- NOTE | 2021-03-14 06:34 | NUR ---
[facility] I have received report from Ana CARRILLO and had the opportunity to ask questions and assume patient care. Addendum: 03/14/21 at 0634 by Reba Hilliard RN Amended: Links added.
[2021-03-14] MEDS: lactobacillus rhamnosus 10,000 MMU CELLS/CAPSULE OGT SCH ×2 (07:28→19:18)
[2021-03-14] MEDS: magnesium hydroxide 30ml (MOM) UD suspension OGT PRN (07:28)
[2021-03-14] MEDS: famotidine 20mg tablet OGT SCH ×2 (07:28→19:18)
[2021-03-14] MEDS: docusate sodium 100mg/10ml UD cup OGT SCH ×2 (07:28→19:17)
[2021-03-14] MEDS: furosemide 40mg/4ml inj IV SCH ×2 (07:28→19:18)
[2021-03-14] MEDS: enoxaparin 80mg/0.8ml syringe SUBCUT SCH ×2 (07:29→19:19)
[2021-03-14 07:36] LABS: TOTAL CELLS COUNTED 100
[2021-03-14] MEDS: K and/or MAG REPLACEMENT MC SCH ×2 (07:36→18:29)
[2021-03-14 07:38] LABS: PLATELET ESTIMATE NORMAL; POLYCHROMASIA FEW; STOMATOCYTES 1+; TEAR DROP CELLS 1+
--- NOTE | 2021-03-14 07:53 | NUR ---
Milk of mag. given for no stool in rectal bag.
[2021-03-14] MEDS: propofol 1000mg/100ml bottle 100 ML IV SCH ×2 (10:37→18:01)
--- NOTE | 2021-03-14 11:30 | NUR ---
Pt. tolerating being supine. RT assessed ETT. Numbers have worn off ETT so placement is difficult to determine. ETT is secure though.
--- NOTE | 2021-03-14 11:52 | NUR ---
Dr. Smiley rounded. Notified of positive blood culture, current vent settings, labs, vital signs. No new orders received.
[2021-03-14] MEDS: ringers solution, lacted 1,000 ML IV SCH (12:32)
--- NOTE | 2021-03-14 18:04 | NUR ---
Problems reprioritized. Patient report given, questions answered & plan of care reviewed with Ana CARRILLO.
--- NOTE | 2021-03-14 18:12 | NUR ---
Patient in room CICU 2007. I have received report from GERARDO Britton and had the opportunity to ask questions and assume patient care.
[2021-03-14] MEDS: insulin glargine (Lantus) pen - multi-dose SQ SCH (19:41)
--- NOTE | 2021-03-14 21:00 | NUR ---
Rotoprone bed not weighing correctly, unable to obtain current weight.
[2021-03-15] VITALS (24 sets, daily range): BP systolic 83–157; BP diastolic 38–99
[2021-03-15] MEDS: methylPREDNISolone sod succ 125mg/2ml vial IV SCH ×2 (00:04→07:19)
[2021-03-15] MEDS: FENTANYL-0.9 % NACL/PF 100 ML IV PRN ×8 (00:59→23:51)
--- NOTE | 2021-03-15 01:19 | NUR ---
SUPINE [phone]- [id number].
[2021-03-15] MEDS: mineral oil/petrolatum ophthal oint EACHEYE SCH ×4 (01:38→20:00)
[2021-03-15] MEDS: piperacillin/tazo 3.375gm/50ml 50 ML IV SCH ×3 (01:38→13:26)
[2021-03-15] MEDS: midazolam 100mg in NS 100ml 100 ML IV PRN ×5 (02:35→22:29)
[2021-03-15 02:36] LABS: BASOPHILS # (AUTO) 0.1 X10'3 (0-0.2); BASOPHILS % (AUTO) 0.3 % (0-1); EOSINOPHILS % (AUTO) 0.2 % (0-6); HEMATOCRIT 31.4 % (42.0-52.0); HEMOGLOBIN 10.3 g/dl (14.0-17.9); LYMPHOCYTES # (AUTO) 0.6 X10'3 (1.1-4.8); LYMPHOCYTES % (AUTO) 3.3 % (21-51); MEAN CORPUSCULAR HEMOGLOBIN 30.8 PG (27.0-31.0); MEAN CORPUSCULAR HGB CONC 32.7 g/dL (33.0-36.5); MEAN CORPUSCULAR VOLUME 94.1 FL (78-98); MEAN PLATELET VOLUME 9.1 FL (7.4-10.4); MONOCYTES % (AUTO) 5.5 % (2-12); NEUTROPHILS # (AUTO) 17.2 X10'3 (1.8-7.7); NEUTROPHILS % (AUTO) 90.7 % (42-75); PLATELET COUNT 218 X10'3 (140-440); RED BLOOD COUNT 3.33 X10'6 (4.70-6.10); RED CELL DISTRIBUTION WIDTH 13.1 % (11.5-14.5)
[2021-03-15] MEDS: insulin regular, human U-100 3ml vial - multi-dose SQ SCH ×4 (02:37→19:56)
[2021-03-15 02:50] LABS: D-DIMER 1.52 MG/L FEU (0-0.50); PARTIAL THROMBOPLASTIN TIME 28 SECONDS (22-32)
[2021-03-15 02:55] LABS: ALANINE AMINOTRANSFERASE 77 U/L (12-78); ALBUMIN 1.8 G/DL (3.4-5.0); ALBUMIN/GLOBULIN RATIO 0.7 (1.1-1.5); ALKALINE PHOSPHATASE 45 IU/L (46-116); ANION GAP 1 (8-16); ASPARTATE AMINO TRANSFERASE 14 U/L (10-37); BILIRUBIN,TOTAL 0.3 MG/DL (0.1-1.0); BLOOD UREA NITROGEN 30 MG/DL (7-18); BUN/CREATININE RATIO 57.7 (5.4-32.0); C-REACTIVE PROTEIN 0.08 MG/DL (0.0-0.5); CALCIUM 7.4 MG/DL (8.5-10.1); CHLORIDE 106 MMOL/L (99-107); CREATININE 0.52 MG/DL (0.60-1.10); GLUCOSE 115 MG/DL (70-104); MAGNESIUM 2.3 MG/DL (1.5-2.4); PHOSPHORUS 4.3 MG/DL (2.3-4.5); POTASSIUM 4.6 MMOL/L (3.5-5.1); SODIUM 144 MMOL/L (135-145); TOTAL PROTEIN 4.4 G/DL (6.4-8.2); eGFR > 90 ML/MIN
[2021-03-15 03:44] LABS: ABG BASE EXCESS 13.3 mmol/L (-2.0-2.0); ABG HCO3 40.4 mmol/L (22.0-26.0); ABG OXYGEN SATURATION 93.3 % (94-97); ABG PO2 (T) 71.5 mmHg (75.0-100.0); FCOHb 0.3 % (0.0-3.9); FMetHb 0.2 % (0.0-1.5); FO2Hb 92.8 % (94-97); PATIENT TEMPERATURE 37.2; PEEP 13 cm H2O; RESPIRATORY RATE 22 b/min; TIDAL VOLUME 425 mL; TOTAL HEMOGLOBIN 11.6 G/dl (14.0-18.0)
[2021-03-15] MEDS: CISatracurium besylate inj. 100 MG in normal saline 100ml IV soln 90 ML IV SCH ×3 (05:43→17:37)
--- NOTE | 2021-03-15 06:03 | NUR ---
Problems reprioritized. Patient report given, questions answered & plan of care reviewed with EGRARDO Britton.
[2021-03-15 06:45] LABS: TOTAL CELLS COUNTED 100
[2021-03-15 06:46] LABS: PLATELET ESTIMATE NORMAL; POLYCHROMASIA FEW
--- NOTE | 2021-03-15 06:57 | NUR ---
[facility] I have received report from Ana CARRILLO and had the opportunity to ask questions and assume patient care. Addendum: 03/15/21 at 0658 by Reba Hilliard RN Amended: Links added.
[2021-03-15] MEDS: magnesium hydroxide 30ml (MOM) UD suspension OGT PRN (07:19)
[2021-03-15] MEDS: famotidine 20mg tablet OGT SCH ×2 (07:19→19:30)
[2021-03-15] MEDS: docusate sodium 100mg/10ml UD cup OGT SCH ×2 (07:19→19:30)
[2021-03-15] MEDS: lactobacillus rhamnosus 10,000 MMU CELLS/CAPSULE OGT SCH ×2 (07:19→19:30)
[2021-03-15] MEDS: enoxaparin 80mg/0.8ml syringe SUBCUT SCH ×2 (07:20→19:31)
[2021-03-15] MEDS: furosemide 40mg/4ml inj IV SCH ×2 (07:20→19:30)
[2021-03-15] MEDS: K and/or MAG REPLACEMENT MC SCH ×2 (07:36→20:00)
--- NOTE | 2021-03-15 08:02 | NUR ---
FI02 decreased to 75% per RT. Sp02 down to 86%. FI02 back to 80%.
[2021-03-15] MEDS: propofol 1000mg/100ml bottle 100 ML IV SCH ×2 (09:01→17:11)
--- NOTE | 2021-03-15 10:01 | NUR ---
Dr. Mattson in to see patient.
--- NOTE | 2021-03-15 10:01 | NUR ---
M.O.M. given this am for no BM in rectal bag.
--- NOTE | 2021-03-15 11:09 | NUR ---
Dr. Mahajan here to see pt.
--- NOTE | 2021-03-15 11:22 | NUR ---
F/u 03/15: Pt tolerating TF at goal GRV WNL. LBM 03/10 -300ml stool w/ current 5 days constipation receiving routine colace and PRN MoM given this AM per EMR. Would benefit from additional bowel care if MD agreeable. Propofol at 2.55ml/hr non-significant kcals at this time; will monitor for changes and EN adjustment needs. Will continue to monitor. Recommendations: 1) Continuous TF via using Vital High Protein at goal rate of 75mL/hr to provide 1800mL total volume/day, 1800 kcal, 158g protein, and 1512mL water. Okay to initiate at 75ml/hr since tolerating Vital AF at 55ml/hr previously. 2) Additional 100 mL water flush Q4H; monitor serum Na for adjustment needs 3) Prealbumin q Monday/; daily wts 4) Routine bowel care; 5 days constipation 5) Monitor Propofol rate and need to adjust TF recommendations Addendum: 03/15/21 at [address]2 [address]ña Hussein RD Amended: Links added.
--- NOTE | 2021-03-15 12:29 | NUR ---
FI02 turned down to 75% again. Pt. maintaining Sp02 of 88-92%. Pt. remains supine and rotating.
--- NOTE | 2021-03-15 12:50 | NUR ---
Sp02 86%. FI02 turned back up to 80% from 75%. Sp02 92%.
[2021-03-15] MEDS: methylPREDNISolone sod succ/PF 40mg inj. IV SCH ×2 (15:41→23:51)
[2021-03-15] MEDS ORDERED: piperacillin/tazo 4.5gm/100ml 100 ML IV SCH (16:00)
--- NOTE | 2021-03-15 18:01 | NUR ---
Problems reprioritized. Patient report given, questions answered & plan of care reviewed with Janette CARRILLO.
--- NOTE | 2021-03-15 18:21 | NUR ---
Patient in room CICU 2007. I have received report from Reba CARRILLO and had the opportunity to ask questions and assume patient care.
[2021-03-15] MEDS: insulin glargine (Lantus) pen - multi-dose SQ SCH (19:58)
[2021-03-15] MEDS: piperacillin/tazo 4.5gm/100ml 100 ML IV SCH (20:01)
[2021-03-16] VITALS (24 sets, daily range): BP systolic 87–173; BP diastolic 40–90
[2021-03-16] MEDS: CISatracurium besylate inj. 100 MG in normal saline 100ml IV soln 90 ML IV SCH ×4 (00:51→17:24)
[2021-03-16] MEDS: propofol 1000mg/100ml bottle 100 ML IV SCH ×4 (01:36→23:14)
[2021-03-16] MEDS: mineral oil/petrolatum ophthal oint EACHEYE SCH ×4 (02:00→20:45)
[2021-03-16] MEDS: insulin regular, human U-100 3ml vial - multi-dose SQ SCH ×4 (02:31→20:08)
[2021-03-16] MEDS: FENTANYL-0.9 % NACL/PF 100 ML IV PRN ×7 (03:10→20:45)
[2021-03-16 03:24] LABS: BASOPHILS % (AUTO) 0.2 % (0-1); EOSINOPHILS # (AUTO) 0.1 X10'3 (0-0.9); EOSINOPHILS % (AUTO) 0.3 % (0-6); HEMATOCRIT 31.8 % (42.0-52.0); HEMOGLOBIN 10.5 g/dl (14.0-17.9); LYMPHOCYTES # (AUTO) 0.7 X10'3 (1.1-4.8); MEAN PLATELET VOLUME 8.9 FL (7.4-10.4); MONOCYTES # (AUTO) 0.9 X10'3 (0-0.9); MONOCYTES % (AUTO) 5.2 % (2-12); NEUTROPHILS % (AUTO) 90.3 % (42-75); PLATELET COUNT 220 X10'3 (140-440); RED BLOOD COUNT 3.38 X10'6 (4.70-6.10); RED CELL DISTRIBUTION WIDTH 13.2 % (11.5-14.5); WHITE BLOOD COUNT 17.8 X10'3 (4.5-11.0)
[2021-03-16 03:56] LABS: ALANINE AMINOTRANSFERASE 65 U/L (12-78); ALBUMIN 1.9 G/DL (3.4-5.0); ALBUMIN/GLOBULIN RATIO 0.7 (1.1-1.5); ALKALINE PHOSPHATASE 45 IU/L (46-116); ANION GAP 1 (8-16); ASPARTATE AMINO TRANSFERASE 14 U/L (10-37); BILIRUBIN,TOTAL 0.3 MG/DL (0.1-1.0); BLOOD UREA NITROGEN 32 MG/DL (7-18); BUN/CREATININE RATIO 51.6 (5.4-32.0); C-REACTIVE PROTEIN 0.05 MG/DL (0.0-0.5); CALCIUM 7.3 MG/DL (8.5-10.1); CHLORIDE 104 MMOL/L (99-107); CREATININE 0.62 MG/DL (0.60-1.10); GLUCOSE 126 MG/DL (70-104); MAGNESIUM 2.2 MG/DL (1.5-2.4); PHOSPHORUS 4.2 MG/DL (2.3-4.5); POTASSIUM 4.2 MMOL/L (3.5-5.1); SODIUM 143 MMOL/L (135-145); TOTAL CARBON DIOXIDE 38.1 MMOL/L (24-32); TOTAL PROTEIN 4.7 G/DL (6.4-8.2); eGFR > 90 ML/MIN
[2021-03-16] MEDS: piperacillin/tazo 4.5gm/100ml 100 ML IV SCH ×3 (04:16→20:01)
[2021-03-16 04:18] LABS: ABG BASE EXCESS 9.9 mmol/L (-2.0-2.0); ABG HCO3 35.6 mmol/L (22.0-26.0); ABG OXYGEN SATURATION 93.7 % (94-97); ABG PCO2 (T) 53.8 mmHg (35.0-48.0); FCOHb 0.3 % (0.0-3.9); FMetHb 0.2 % (0.0-1.5); FO2Hb 93.2 % (94-97); PATIENT TEMPERATURE 37.3; PEEP 13 cm H2O; RESPIRATORY RATE 22 b/min; TIDAL VOLUME 425 mL; TOTAL HEMOGLOBIN 12.1 G/dl (14.0-18.0)
[2021-03-16] MEDS: midazolam 100mg in NS 100ml 100 ML IV PRN ×4 (04:18→18:58)
[2021-03-16 04:37] LABS: TOTAL CELLS COUNTED 100
[2021-03-16 04:38] LABS: ANISOCYTOSIS 1+; PLATELET ESTIMATE NORMAL; POLYCHROMASIA FEW; STOMATOCYTES FEW
--- NOTE | 2021-03-16 06:20 | NUR ---
Problems reprioritized. Patient report given, questions answered & plan of care reviewed with Reba CARRILLO.
--- NOTE | 2021-03-16 06:54 | NUR ---
[facility] I have received report from Janette CARRILLO and had the opportunity to ask questions and assume patient care. Addendum: 03/16/21 at 0655 by Reba Hilliard RN Amended: Links added.
[2021-03-16] MEDS: docusate sodium 100mg/10ml UD cup OGT SCH ×2 (07:28→19:40)
[2021-03-16] MEDS: lactobacillus rhamnosus 10,000 MMU CELLS/CAPSULE OGT SCH ×2 (07:29→19:40)
[2021-03-16] MEDS: enoxaparin 80mg/0.8ml syringe SUBCUT SCH ×2 (07:29→19:40)
[2021-03-16] MEDS: furosemide 40mg/4ml inj IV SCH ×2 (07:29→19:40)
[2021-03-16] MEDS: famotidine 20mg tablet OGT SCH ×2 (07:29→19:40)
[2021-03-16] MEDS: methylPREDNISolone sod succ/PF 40mg inj. IV SCH ×3 (07:29→23:13)
[2021-03-16] MEDS: magnesium hydroxide 30ml (MOM) UD suspension OGT PRN (07:29)
[2021-03-16] MEDS: ringers solution, lacted 1,000 ML IV SCH (07:30)
[2021-03-16] MEDS: K and/or MAG REPLACEMENT MC SCH ×2 (07:30→20:00)
[2021-03-16] MEDS: methylnaltrexone br 12mg/0.6ml inj***SubQ only SQ SCH (08:52)
[2021-03-16 12:20] LABS: D-DIMER 1.42 MG/L FEU (0-0.50); PARTIAL THROMBOPLASTIN TIME 25 SECONDS (22-32)
--- NOTE | 2021-03-16 12:36 | NUR ---
PICC RN Kellee notified of Dr. Mahajan's order to "change all lines." Kellee asked for Dr. Mahajan's phone number. Number provided.
--- NOTE | 2021-03-16 16:38 | NUR ---
PICC RN called to state she will not be able to place new PICC today.
--- NOTE | 2021-03-16 17:57 | NUR ---
Problems reprioritized. Patient report given, questions answered & plan of care reviewed with noc GERARDO Savage.
--- NOTE | 2021-03-16 18:16 | NUR ---
Patient in room CICU 2007. I have received report from Reba CARRILLO and had the opportunity to ask questions and assume patient care.
[2021-03-16] MEDS: insulin glargine (Lantus) pen - multi-dose SQ SCH (20:09)
[2021-03-17] VITALS (23 sets, daily range): BP systolic 75–167; BP diastolic 37–84
[2021-03-17] MEDS: FENTANYL-0.9 % NACL/PF 100 ML IV PRN ×6 (00:20→21:09)
[2021-03-17] MEDS: CISatracurium besylate inj. 100 MG in normal saline 100ml IV soln 90 ML IV SCH ×4 (00:21→21:53)
[2021-03-17] MEDS: midazolam 100mg in NS 100ml 100 ML IV PRN ×5 (00:50→22:46)
[2021-03-17] MEDS: insulin regular, human U-100 3ml vial - multi-dose SQ SCH ×4 (02:00→20:01)
[2021-03-17] MEDS: mineral oil/petrolatum ophthal oint EACHEYE SCH ×4 (02:01→19:59)
[2021-03-17 03:17] LABS: BASOPHILS % (AUTO) 0.2 % (0-1); EOSINOPHILS # (AUTO) 0.1 X10'3 (0-0.9); EOSINOPHILS % (AUTO) 0.2 % (0-6); HEMATOCRIT 36.4 % (42.0-52.0); HEMOGLOBIN 11.9 g/dl (14.0-17.9); LYMPHOCYTES # (AUTO) 0.7 X10'3 (1.1-4.8); MEAN CORPUSCULAR HEMOGLOBIN 30.7 PG (27.0-31.0); MEAN CORPUSCULAR HGB CONC 32.5 g/dL (33.0-36.5); MEAN CORPUSCULAR VOLUME 94.4 FL (78-98); MEAN PLATELET VOLUME 8.9 FL (7.4-10.4); MONOCYTES # (AUTO) 1.1 X10'3 (0-0.9); MONOCYTES % (AUTO) 4.8 % (2-12); NEUTROPHILS # (AUTO) 20.1 X10'3 (1.8-7.7); NEUTROPHILS % (AUTO) 91.8 % (42-75); PLATELET COUNT 236 X10'3 (140-440); RED BLOOD COUNT 3.86 X10'6 (4.70-6.10); RED CELL DISTRIBUTION WIDTH 13.4 % (11.5-14.5)
[2021-03-17 03:25] LABS: ABG BASE EXCESS 11.8 mmol/L (-2.0-2.0); ABG HCO3 37.4 mmol/L (22.0-26.0); ABG OXYGEN SATURATION 94.2 % (94-97); ABG PCO2 (T) 54.5 mmHg (35.0-48.0); ABG PO2 (T) 72.2 mmHg (75.0-100.0); FCOHb 0.3 % (0.0-3.9); FMetHb 0.3 % (0.0-1.5); FO2Hb 93.6 % (94-97); PATIENT TEMPERATURE 37.4; PEEP 13 cm H2O; RESPIRATORY RATE 22 b/min; TIDAL VOLUME 425 mL; TOTAL HEMOGLOBIN 11.5 G/dl (14.0-18.0)
[2021-03-17 03:33] LABS: D-DIMER 1.26 MG/L FEU (0-0.50); PARTIAL THROMBOPLASTIN TIME 22 SECONDS (22-32)
[2021-03-17 03:49] LABS: ALANINE AMINOTRANSFERASE 69 U/L (12-78); ALBUMIN 2.4 G/DL (3.4-5.0); ALBUMIN/GLOBULIN RATIO 0.8 (1.1-1.5); ALKALINE PHOSPHATASE 50 IU/L (46-116); ANION GAP 1 (8-16); ASPARTATE AMINO TRANSFERASE 16 U/L (10-37); BILIRUBIN,TOTAL 0.4 MG/DL (0.1-1.0); BLOOD UREA NITROGEN 34 MG/DL (7-18); BUN/CREATININE RATIO 65.4 (5.4-32.0); CALCIUM 7.8 MG/DL (8.5-10.1); CHLORIDE 103 MMOL/L (99-107); CREATININE 0.52 MG/DL (0.60-1.10); GLUCOSE 142 MG/DL (70-104); MAGNESIUM 2.3 MG/DL (1.5-2.4); PHOSPHORUS 3.7 MG/DL (2.3-4.5); POTASSIUM 4.2 MMOL/L (3.5-5.1); SODIUM 142 MMOL/L (135-145); TOTAL CARBON DIOXIDE 38.1 MMOL/L (24-32); TOTAL PROTEIN 5.6 G/DL (6.4-8.2); eGFR > 90 ML/MIN
[2021-03-17] MEDS: piperacillin/tazo 4.5gm/100ml 100 ML IV SCH ×3 (04:02→21:09)
[2021-03-17 04:32] LABS: BANDS% (MANUAL) 5 % (0-10); LYMPHOCYTES % (MANUAL) 8 % (21-51); METAMYLEOCYTES% (MANUAL) 1 % (0-0); MONOCYTES % (MANUAL) 2 % (2-12); NEUTROPHILS % (MANUAL) 84 % (42-75); TOTAL CELLS COUNTED 100
[2021-03-17 04:33] LABS: PLATELET ESTIMATE NORMAL
--- NOTE | 2021-03-17 06:25 | NUR ---
Problems reprioritized. Patient report given, questions answered & plan of care reviewed with Chele CARRILLO.
[2021-03-17] MEDS: K and/or MAG REPLACEMENT MC SCH ×2 (08:00→20:00)
[2021-03-17] MEDS: lactobacillus rhamnosus 10,000 MMU CELLS/CAPSULE OGT SCH ×2 (08:25→19:33)
[2021-03-17] MEDS: docusate sodium 100mg/10ml UD cup OGT SCH ×2 (08:25→19:33)
[2021-03-17] MEDS: famotidine 20mg tablet OGT SCH ×2 (08:25→19:33)
[2021-03-17] MEDS: enoxaparin 80mg/0.8ml syringe SUBCUT SCH ×2 (08:25→19:33)
[2021-03-17] MEDS: methylPREDNISolone sod succ/PF 40mg inj. IV SCH ×3 (08:26→23:29)
[2021-03-17] MEDS: furosemide 40mg/4ml inj IV SCH ×2 (08:26→19:33)
[2021-03-17] MEDS: normal saline 500ml IV soln 500 ML IV SCH ×6 (12:45→23:25)
--- NOTE | 2021-03-17 18:30 | NUR ---
Patient in room [facility] 2007. I have received report from Jordan CARRILLO and had the opportunity to ask questions and assume patient care.
[2021-03-17] MEDS: insulin glargine (Lantus) pen - multi-dose SQ SCH (20:02)
--- NOTE | 2021-03-17 20:09 | NUR ---
Fentanyl bag pulled at 1731 hung at 1745 entered in emr at 2006 because of missed scan when hung in covid room during line change and proning patient.
[2021-03-17] MEDS: propofol 1000mg/100ml bottle 100 ML IV SCH (21:54)
[2021-03-18] VITALS (25 sets, daily range): BP systolic 92–170; BP diastolic 52–76
[2021-03-18] MEDS: FENTANYL-0.9 % NACL/PF 100 ML IV PRN ×7 (00:38→20:46)
[2021-03-18] MEDS: normal saline 500ml IV soln 500 ML IV SCH ×5 (01:25→09:25)
[2021-03-18] MEDS: CISatracurium besylate inj. 100 MG in normal saline 100ml IV soln 90 ML IV SCH ×6 (02:14→21:52)
[2021-03-18] MEDS: mineral oil/petrolatum ophthal oint EACHEYE SCH ×4 (02:15→19:44)
[2021-03-18] MEDS: insulin regular, human U-100 3ml vial - multi-dose SQ SCH ×4 (02:21→20:36)
[2021-03-18 04:02] LABS: BASOPHILS # (AUTO) 0.1 X10'3 (0-0.2); BASOPHILS % (AUTO) 0.4 % (0-1); EOSINOPHILS # (AUTO) 0.1 X10'3 (0-0.9); EOSINOPHILS % (AUTO) 0.3 % (0-6); HEMATOCRIT 37.8 % (42.0-52.0); HEMOGLOBIN 12.3 g/dl (14.0-17.9); LYMPHOCYTES # (AUTO) 1.3 X10'3 (1.1-4.8); LYMPHOCYTES % (AUTO) 6.8 % (21-51); MEAN CORPUSCULAR HEMOGLOBIN 30.8 PG (27.0-31.0); MEAN CORPUSCULAR HGB CONC 32.6 g/dL (33.0-36.5); MEAN CORPUSCULAR VOLUME 94.5 FL (78-98); MEAN PLATELET VOLUME 9.1 FL (7.4-10.4); MONOCYTES % (AUTO) 4.9 % (2-12); NEUTROPHILS # (AUTO) 17.3 X10'3 (1.8-7.7); NEUTROPHILS % (AUTO) 87.6 % (42-75); PLATELET COUNT 224 X10'3 (140-440); RED CELL DISTRIBUTION WIDTH 13.5 % (11.5-14.5); WHITE BLOOD COUNT 19.8 X10'3 (4.5-11.0)
[2021-03-18 04:04] LABS: ABG BASE EXCESS 11.7 mmol/L (-2.0-2.0); ABG HCO3 38.9 mmol/L (22.0-26.0); ABG OXYGEN SATURATION 94.9 % (94-97); ABG PCO2 (T) 63.7 mmHg (35.0-48.0); ABG PO2 (T) 83.5 mmHg (75.0-100.0); FCOHb 0.2 % (0.0-3.9); FMetHb 0.2 % (0.0-1.5); FO2Hb 94.5 % (94-97); PATIENT TEMPERATURE 37.4; PEEP 13 cm H2O; RESPIRATORY RATE 22 b/min; TIDAL VOLUME 425 mL; TOTAL HEMOGLOBIN 13.2 G/dl (14.0-18.0)
[2021-03-18 04:16] LABS: D-DIMER 1.15 MG/L FEU (0-0.50); PARTIAL THROMBOPLASTIN TIME 25 SECONDS (22-32)
[2021-03-18 04:18] LABS: ALANINE AMINOTRANSFERASE 72 U/L (12-78); ALBUMIN 2.4 G/DL (3.4-5.0); ALBUMIN/GLOBULIN RATIO 0.7 (1.1-1.5); ALKALINE PHOSPHATASE 53 IU/L (46-116); ANION GAP 7 (8-16); ASPARTATE AMINO TRANSFERASE 22 U/L (10-37); BILIRUBIN,TOTAL 0.5 MG/DL (0.1-1.0); BLOOD UREA NITROGEN 33 MG/DL (7-18); BUN/CREATININE RATIO 63.5 (5.4-32.0); C-REACTIVE PROTEIN 0.21 MG/DL (0.0-0.5); CALCIUM 7.7 MG/DL (8.5-10.1); CHLORIDE 98 MMOL/L (99-107); CREATININE 0.52 MG/DL (0.60-1.10); GLUCOSE 109 MG/DL (70-104); MAGNESIUM 2.4 MG/DL (1.5-2.4); PHOSPHORUS 3.9 MG/DL (2.3-4.5); PREALBUMIN 47.9 MG/DL (19-36); SODIUM 141 MMOL/L (135-145); TOTAL CARBON DIOXIDE 36.4 MMOL/L (24-32); TOTAL PROTEIN 5.9 G/DL (6.4-8.2); TRIGLYCERIDES 81 MG/DL (20-135); eGFR > 90 ML/MIN
[2021-03-18] MEDS: midazolam 100mg in NS 100ml 100 ML IV PRN ×4 (04:22→20:45)
[2021-03-18] MEDS: piperacillin/tazo 4.5gm/100ml 100 ML IV SCH ×3 (04:25→20:43)
--- NOTE | 2021-03-18 06:22 | NUR ---
Problems reprioritized. Patient report given, questions answered & plan of care reviewed with Solange CARRILLO.
--- NOTE | 2021-03-18 06:30 | NUR ---
Patient in room CICU 2008. I have received report from JONY and had the opportunity to ask questions and assume patient care.
[2021-03-18] MEDS: K and/or MAG REPLACEMENT MC SCH ×2 (06:46→19:54)
[2021-03-18] MEDS: propofol 1000mg/100ml bottle 100 ML IV SCH ×2 (08:04→17:16)
[2021-03-18] MEDS: methylnaltrexone br 12mg/0.6ml inj***SubQ only SQ SCH (08:05)
[2021-03-18] MEDS: famotidine 20mg tablet OGT SCH ×2 (08:05→19:47)
[2021-03-18] MEDS: docusate sodium 100mg/10ml UD cup OGT SCH ×2 (08:05→19:47)
[2021-03-18] MEDS: lactobacillus rhamnosus 10,000 MMU CELLS/CAPSULE OGT SCH ×2 (08:05→19:47)
[2021-03-18] MEDS: methylPREDNISolone sod succ/PF 40mg inj. IV SCH ×3 (08:05→23:43)
[2021-03-18] MEDS: furosemide 40mg/4ml inj IV SCH ×2 (08:05→19:47)
[2021-03-18] MEDS: enoxaparin 80mg/0.8ml syringe SUBCUT SCH ×2 (08:06→19:48)
--- NOTE | 2021-03-18 11:07 | NUR ---
Reassessment: Pt remains intubated and tolerating TF at goal rate with GRV WNL. LBM 03/17 documented with only 50 mL stool output from rectal tube though with 600 mL stool output 03/16. Pt receiving routine Colace and Relistor with PRN MoM available, last given 03/16. No changes to nutrition intervention recommendations at this time. Will continue to follow. Recommendations: 1) Continuous TF via using Vital High Protein at goal rate of 75 mL/hr to provide 1800 mL total volume/day, 1800 kcal, 158g protein, and 1512 mL water. 2) Additional 100 mL water flush Q4H; monitor serum Na for adjustment needs 3) Prealbumin q Monday/; daily wts 4) Routine bowel care; 5 days constipation 5) Monitor Propofol rate and need to adjust TF recommendations Addendum: 03/18/21 at [address] Amended: Links added.
--- NOTE | 2021-03-18 11:45 | NUR ---
UPDATE TO DR BRODERICK RE ABGS- FIO2 TO 70%, SATS AT 93%. VSS.
--- NOTE | 2021-03-18 14:30 | NUR ---
PT SUPINE FOR ICE PACKS, ORAL AND ALTON CARE- TOLERATED 1 HR 15MIN- SATS 95 TO 93%. ONCE PRONE AND TURNING SATS 87 TO 90%.
--- NOTE | 2021-03-18 18:02 | NUR ---
sbp down somewhat- diprivan decreased. using nibp
[2021-03-18] MEDS: insulin glargine (Lantus) pen - multi-dose SQ SCH (20:37)
[2021-03-19] VITALS (25 sets, daily range): BP systolic 88–164; BP diastolic 47–94
[2021-03-19] MEDS: FENTANYL-0.9 % NACL/PF 100 ML IV PRN ×8 (00:03→22:28)
[2021-03-19] MEDS: CISatracurium besylate inj. 100 MG in normal saline 100ml IV soln 90 ML IV SCH ×6 (01:36→20:19)
[2021-03-19] MEDS: mineral oil/petrolatum ophthal oint EACHEYE SCH ×4 (01:38→20:20)
[2021-03-19] MEDS: propofol 1000mg/100ml bottle 100 ML IV SCH ×4 (01:38→22:26)
[2021-03-19 02:53] LABS: ABG BASE EXCESS 10.2 mmol/L (-2.0-2.0); ABG HCO3 35.6 mmol/L (22.0-26.0); ABG OXYGEN SATURATION 93.5 % (94-97); ABG PCO2 (T) 52.1 mmHg (35.0-48.0); ABG PO2 (T) 72.8 mmHg (75.0-100.0); FCOHb 0.2 % (0.0-3.9); FMetHb 0.4 % (0.0-1.5); FO2Hb 92.9 % (94-97); PATIENT TEMPERATURE 37.5; PEEP 13 cm H2O; RESPIRATORY RATE 22 b/min; TIDAL VOLUME 425 mL; TOTAL HEMOGLOBIN 12.4 G/dl (14.0-18.0)
[2021-03-19] MEDS: dextrose 50%-water 50ml dispensing syringe IV PRN (03:03)
[2021-03-19] MEDS: midazolam 100mg in NS 100ml 100 ML IV PRN ×4 (03:04→19:26)
[2021-03-19 03:45] LABS: BASOPHILS % (AUTO) 0.2 % (0-1); EOSINOPHILS # (AUTO) 0.2 X10'3 (0-0.9); HEMATOCRIT 34.3 % (42.0-52.0); HEMOGLOBIN 11.4 g/dl (14.0-17.9); LYMPHOCYTES # (AUTO) 0.9 X10'3 (1.1-4.8); LYMPHOCYTES % (AUTO) 5.7 % (21-51); MEAN CORPUSCULAR HEMOGLOBIN 30.8 PG (27.0-31.0); MEAN CORPUSCULAR HGB CONC 33.1 g/dL (33.0-36.5); MEAN PLATELET VOLUME 8.4 FL (7.4-10.4); MONOCYTES # (AUTO) 0.7 X10'3 (0-0.9); MONOCYTES % (AUTO) 4.5 % (2-12); NEUTROPHILS # (AUTO) 13.4 X10'3 (1.8-7.7); NEUTROPHILS % (AUTO) 88.6 % (42-75); PLATELET COUNT 187 X10'3 (140-440); RED BLOOD COUNT 3.69 X10'6 (4.70-6.10); RED CELL DISTRIBUTION WIDTH 13.9 % (11.5-14.5); WHITE BLOOD COUNT 15.2 X10'3 (4.5-11.0)
[2021-03-19 03:57] LABS: D-DIMER 1.05 MG/L FEU (0-0.50)
[2021-03-19 04:00] LABS: ALANINE AMINOTRANSFERASE 58 U/L (12-78); ALBUMIN 2.2 G/DL (3.4-5.0); ALBUMIN/GLOBULIN RATIO 0.7 (1.1-1.5); ALKALINE PHOSPHATASE 45 IU/L (46-116); ANION GAP 0 (8-16); ASPARTATE AMINO TRANSFERASE 19 U/L (10-37); BILIRUBIN,TOTAL 0.5 MG/DL (0.1-1.0); BLOOD UREA NITROGEN 37 MG/DL (7-18); BUN/CREATININE RATIO 72.5 (5.4-32.0); C-REACTIVE PROTEIN 0.48 MG/DL (0.0-0.5); CALCIUM 8.1 MG/DL (8.5-10.1); CHLORIDE 106 MMOL/L (99-107); CREATININE 0.51 MG/DL (0.60-1.10); GLUCOSE 66 MG/DL (70-104); MAGNESIUM 2.3 MG/DL (1.5-2.4); POTASSIUM 3.6 MMOL/L (3.5-5.1); SODIUM 143 MMOL/L (135-145); TOTAL CARBON DIOXIDE 36.6 MMOL/L (24-32); TOTAL PROTEIN 5.4 G/DL (6.4-8.2); eGFR > 90 ML/MIN
[2021-03-19] MEDS: piperacillin/tazo 4.5gm/100ml 100 ML IV SCH ×3 (04:24→20:21)
--- NOTE | 2021-03-19 06:16 | NUR ---
Problems reprioritized. Patient report given, questions answered & plan of care reviewed with Solange CARRILLO.
--- NOTE | 2021-03-19 06:30 | NUR ---
Patient in room CICU 2008. I have received report from ESTEFANÍA and had the opportunity to ask questions and assume patient care.
[2021-03-19] MEDS: famotidine 20mg tablet OGT SCH ×2 (07:57→20:21)
[2021-03-19] MEDS: enoxaparin 80mg/0.8ml syringe SUBCUT SCH ×2 (07:57→20:21)
[2021-03-19] MEDS: methylPREDNISolone sod succ/PF 40mg inj. IV SCH ×2 (07:57→15:50)
[2021-03-19] MEDS: docusate sodium 100mg/10ml UD cup OGT SCH ×2 (07:58→20:00)
[2021-03-19] MEDS: furosemide 40mg/4ml inj IV SCH ×2 (08:00→20:20)
[2021-03-19] MEDS: lactobacillus rhamnosus 10,000 MMU CELLS/CAPSULE OGT SCH ×2 (08:00→20:20)
[2021-03-19] MEDS: K and/or MAG REPLACEMENT MC SCH ×2 (08:00→20:00)
[2021-03-19] MEDS: insulin regular, human U-100 3ml vial - multi-dose SQ SCH ×3 (09:30→20:49)
--- NOTE | 2021-03-19 14:30 | NUR ---
PT SUPINE FOR CARE FROM 1130 TO 1230- SATS 93 TO 94. SUPINE AND ROTATING 40 DEGREES FROM 1230 TO 1430- SATS 93 TO 94%. DECREASED BP WITH SUPINE, PT WAS HYPERTENSIVE THIS AM- RELIEVED BY DIPRIVAN BOLUSES. TO PRONE- SATS TO 91%, SBP 97. NO OTHER CHANGES. LIPS MORE BLDY TODAY.
--- NOTE | 2021-03-19 18:30 | NUR ---
[facility] I have received report from Solange CARRILLO and had the opportunity to ask questions and assume patient care. Addendum: 03/19/21 at 2233 by Jennifer Crook RN Amended: Links added.
[2021-03-19] MEDS: insulin glargine (Lantus) pen - multi-dose SQ SCH (20:50)
[2021-03-20] VITALS (25 sets, daily range): BP systolic 84–134; BP diastolic 43–84
[2021-03-20] MEDS: methylPREDNISolone sod succ/PF 40mg inj. IV SCH ×4 (01:07→23:48)
[2021-03-20] MEDS: FENTANYL-0.9 % NACL/PF 100 ML IV PRN ×7 (01:08→22:25)
[2021-03-20] MEDS: CISatracurium besylate inj. 100 MG in normal saline 100ml IV soln 90 ML IV SCH ×5 (01:08→22:20)
[2021-03-20] MEDS: mineral oil/petrolatum ophthal oint EACHEYE SCH ×4 (02:00→19:45)
[2021-03-20] MEDS: midazolam 100mg in NS 100ml 100 ML IV PRN ×4 (02:25→18:54)
[2021-03-20] MEDS: insulin regular, human U-100 3ml vial - multi-dose SQ SCH ×4 (02:31→20:44)
[2021-03-20 03:20] LABS: BASOPHILS % (AUTO) 0.2 % (0-1); EOSINOPHILS # (AUTO) 0.2 X10'3 (0-0.9); EOSINOPHILS % (AUTO) 1.7 % (0-6); HEMOGLOBIN 10.7 g/dl (14.0-17.9); LYMPHOCYTES # (AUTO) 0.7 X10'3 (1.1-4.8); LYMPHOCYTES % (AUTO) 7.1 % (21-51); MEAN CORPUSCULAR HEMOGLOBIN 31.5 PG (27.0-31.0); MEAN CORPUSCULAR HGB CONC 33.4 g/dL (33.0-36.5); MEAN CORPUSCULAR VOLUME 94.3 FL (78-98); MEAN PLATELET VOLUME 8.7 FL (7.4-10.4); MONOCYTES # (AUTO) 0.4 X10'3 (0-0.9); NEUTROPHILS # (AUTO) 8.7 X10'3 (1.8-7.7); PLATELET COUNT 148 X10'3 (140-440); RED BLOOD COUNT 3.39 X10'6 (4.70-6.10); RED CELL DISTRIBUTION WIDTH 13.8 % (11.5-14.5)
[2021-03-20 03:36] LABS: PARTIAL THROMBOPLASTIN TIME 27 SECONDS (22-32)
[2021-03-20] MEDS: propofol 1000mg/100ml bottle 100 ML IV SCH ×4 (03:51→20:46)
[2021-03-20 03:54] LABS: ALANINE AMINOTRANSFERASE 55 U/L (12-78); ALBUMIN/GLOBULIN RATIO 0.6 (1.1-1.5); ALKALINE PHOSPHATASE 47 IU/L (46-116); ANION GAP 4 (8-16); ASPARTATE AMINO TRANSFERASE 20 U/L (10-37); BILIRUBIN,TOTAL 0.4 MG/DL (0.1-1.0); BLOOD UREA NITROGEN 28 MG/DL (7-18); BUN/CREATININE RATIO 58.3 (5.4-32.0); C-REACTIVE PROTEIN 3.51 MG/DL (0.0-0.5); CALCIUM 7.8 MG/DL (8.5-10.1); CHLORIDE 104 MMOL/L (99-107); CREATININE 0.48 MG/DL (0.60-1.10); GLUCOSE 104 MG/DL (70-104); MAGNESIUM 2.2 MG/DL (1.5-2.4); PHOSPHORUS 3.3 MG/DL (2.3-4.5); POTASSIUM 3.7 MMOL/L (3.5-5.1); SODIUM 145 MMOL/L (135-145); TOTAL CARBON DIOXIDE 37.4 MMOL/L (24-32); TOTAL PROTEIN 5.1 G/DL (6.4-8.2); eGFR > 90 ML/MIN
[2021-03-20 04:12] LABS: ABG BASE EXCESS 11.8 mmol/L (-2.0-2.0); ABG HCO3 37.2 mmol/L (22.0-26.0); ABG OXYGEN SATURATION 93.2 % (94-97); ABG PCO2 (T) 53.4 mmHg (35.0-48.0); ABG PO2 (T) 71.2 mmHg (75.0-100.0); FCOHb 0.3 % (0.0-3.9); FMetHb 0.3 % (0.0-1.5); FO2Hb 92.6 % (94-97); PATIENT TEMPERATURE 37.6; PEEP 13 cm H2O; RESPIRATORY RATE 20 b/min; TIDAL VOLUME 425 mL; TOTAL HEMOGLOBIN 11.5 G/dl (14.0-18.0)
[2021-03-20] MEDS: piperacillin/tazo 4.5gm/100ml 100 ML IV SCH ×3 (04:52→20:45)
--- NOTE | 2021-03-20 06:30 | NUR ---
Patient in room CICU 2008. I have received report from JOHNNIE and had the opportunity to ask questions and assume patient care.
--- NOTE | 2021-03-20 06:34 | NUR ---
Problems reprioritized. Patient report given, questions answered & plan of care reviewed with Solange CARRILLO.
[2021-03-20] MEDS: furosemide 40mg/4ml inj IV SCH ×2 (08:00→19:43)
[2021-03-20] MEDS: K and/or MAG REPLACEMENT MC SCH ×2 (08:00→19:45)
[2021-03-20] MEDS: methylnaltrexone br 12mg/0.6ml inj***SubQ only SQ SCH (08:04)
[2021-03-20] MEDS: docusate sodium 100mg/10ml UD cup OGT SCH ×2 (08:04→19:44)
[2021-03-20] MEDS: lactobacillus rhamnosus 10,000 MMU CELLS/CAPSULE OGT SCH ×2 (08:04→19:44)
[2021-03-20] MEDS: enoxaparin 80mg/0.8ml syringe SUBCUT SCH ×2 (08:05→19:44)
[2021-03-20] MEDS: famotidine 20mg tablet OGT SCH ×2 (08:05→19:44)
[2021-03-20 12:05] LABS: D-DIMER 0.87 MG/L FEU (0-0.50)
--- NOTE | 2021-03-20 12:46 | NUR ---
DR SLOAN CALLED PER DR BARTH'S REQUEST RE ELEVATION OF CRP- NO NEW ORDERS RECEIVED EXCEPT TO CONTINUE STEROIDS IS.
--- NOTE | 2021-03-20 13:30 | NUR ---
Reassessment: Pt remains intubated and tolerating TF at goal rate with GRV WNL. LBM 03/19 documented with 600 mL stool output from rectal tube per I&O. Pt continues receiving routine Colace and Relistor with PRN MoM available. No changes to nutrition intervention recommendations at this time. Will continue to follow. Recommendations: 1) Continuous TF via using Vital High Protein at goal rate of 75 mL/hr to provide 1800 mL total volume/day, 1800 kcal, 158g protein, and 1512 mL water. 2) Additional 100 mL water flush Q4H; monitor serum Na for adjustment needs 3) Prealbumin q Monday/; daily wts 4) Routine bowel care and opioid antagonist per MD 5) Monitor Propofol rate and need to adjust TF recommendations Addendum: 03/20/21 at [address] Amended: Links added.
--- NOTE | 2021-03-20 15:00 | NUR ---
PT TOLERATING SUPINE WELL. SUPINE AND NOT ROTATING FROM 1230 TO 1400 FOR CARE, ICE PACKS TO FACE AND CHANGE OF TUBE JOHNSON BY RT. NOW SUPINE AND ROTATING- SATS 94%.
--- NOTE | 2021-03-20 15:46 | NUR ---
Update to brother re all aspects of pt' care. note left for dr alvarado to call when able.
--- NOTE | 2021-03-20 17:57 | NUR ---
pt tolerated supine rotation well, returned to prone and rotation.
--- NOTE | 2021-03-20 18:30 | NUR ---
[facility] I have received report from Solange CARRILLO and had the opportunity to ask questions and assume patient care. Addendum: 03/20/21 at 1845 by Jennifer Crook RN Amended: Links added.
[2021-03-20] MEDS: insulin glargine (Lantus) pen - multi-dose SQ SCH (20:45)
--- NOTE | 2021-03-20 23:11 | NUR ---
Patient tolerating rotating on the rotoprone bed in the supine position. Sats 92-94% on 65%FiO2. Will continue to monitor
[2021-03-21] VITALS (24 sets, daily range): BP systolic 77–124; BP diastolic 37–72
[2021-03-21] MEDS: midazolam 100mg in NS 100ml 100 ML IV PRN ×5 (00:43→20:04)
[2021-03-21] MEDS: mineral oil/petrolatum ophthal oint EACHEYE SCH ×4 (01:58→20:02)
[2021-03-21] MEDS: FENTANYL-0.9 % NACL/PF 100 ML IV PRN ×8 (01:59→21:38)
[2021-03-21] MEDS: insulin regular, human U-100 3ml vial - multi-dose SQ SCH ×4 (02:08→21:56)
[2021-03-21] MEDS: propofol 1000mg/100ml bottle 100 ML IV SCH ×4 (02:54→20:03)
[2021-03-21 03:18] LABS: BASOPHILS % (AUTO) 0.2 % (0-1); EOSINOPHILS # (AUTO) 0.1 X10'3 (0-0.9); EOSINOPHILS % (AUTO) 1.4 % (0-6); HEMATOCRIT 31.5 % (42.0-52.0); HEMOGLOBIN 10.6 g/dl (14.0-17.9); LYMPHOCYTES # (AUTO) 0.6 X10'3 (1.1-4.8); LYMPHOCYTES % (AUTO) 5.7 % (21-51); MEAN CORPUSCULAR HEMOGLOBIN 31.6 PG (27.0-31.0); MEAN CORPUSCULAR HGB CONC 33.5 g/dL (33.0-36.5); MEAN CORPUSCULAR VOLUME 94.5 FL (78-98); MEAN PLATELET VOLUME 9.1 FL (7.4-10.4); MONOCYTES # (AUTO) 0.4 X10'3 (0-0.9); MONOCYTES % (AUTO) 3.5 % (2-12); NEUTROPHILS % (AUTO) 89.2 % (42-75); PLATELET COUNT 136 X10'3 (140-440); RED BLOOD COUNT 3.34 X10'6 (4.70-6.10); RED CELL DISTRIBUTION WIDTH 14.6 % (11.5-14.5); WHITE BLOOD COUNT 10.1 X10'3 (4.5-11.0)
[2021-03-21 03:37] LABS: D-DIMER 0.66 MG/L FEU (0-0.50); PARTIAL THROMBOPLASTIN TIME 29 SECONDS (22-32)
[2021-03-21 03:38] LABS: ABG BASE EXCESS 9.1 mmol/L (-2.0-2.0); ABG HCO3 34.8 mmol/L (22.0-26.0); ABG OXYGEN SATURATION 93.3 % (94-97); ABG PCO2 (T) 53.8 mmHg (35.0-48.0); ABG PO2 (T) 75.5 mmHg (75.0-100.0); FCOHb 0.3 % (0.0-3.9); FMetHb 0.3 % (0.0-1.5); FO2Hb 92.7 % (94-97); PATIENT TEMPERATURE 37.6; PEEP 13 cm H2O; RESPIRATORY RATE 20 b/min; TIDAL VOLUME 425 mL; TOTAL HEMOGLOBIN 12.2 G/dl (14.0-18.0)
[2021-03-21 03:51] LABS: ALANINE AMINOTRANSFERASE 52 U/L (12-78); ALBUMIN 2.1 G/DL (3.4-5.0); ALBUMIN/GLOBULIN RATIO 0.7 (1.1-1.5); ALKALINE PHOSPHATASE 51 IU/L (46-116); ANION GAP 1 (8-16); ASPARTATE AMINO TRANSFERASE 18 U/L (10-37); BILIRUBIN,TOTAL 0.4 MG/DL (0.1-1.0); BLOOD UREA NITROGEN 27 MG/DL (7-18); BUN/CREATININE RATIO 58.7 (5.4-32.0); C-REACTIVE PROTEIN 2.74 MG/DL (0.0-0.5); CALCIUM 7.9 MG/DL (8.5-10.1); CHLORIDE 105 MMOL/L (99-107); CREATININE 0.46 MG/DL (0.60-1.10); GLUCOSE 100 MG/DL (70-104); MAGNESIUM 2.1 MG/DL (1.5-2.4); PHOSPHORUS 3.1 MG/DL (2.3-4.5); POTASSIUM 3.4 MMOL/L (3.5-5.1); SODIUM 144 MMOL/L (135-145); TOTAL CARBON DIOXIDE 37.7 MMOL/L (24-32); TOTAL PROTEIN 5.2 G/DL (6.4-8.2); eGFR > 90 ML/MIN
--- NOTE | 2021-03-21 04:33 | NUR ---
AM labs reviewed including ABG. Patient in supine position rotating on rotoprone bed. Sats 93% on 60% FiO2.
[2021-03-21] MEDS: CISatracurium besylate inj. 100 MG in normal saline 100ml IV soln 90 ML IV SCH ×4 (05:04→20:05)
[2021-03-21] MEDS: piperacillin/tazo 4.5gm/100ml 100 ML IV SCH ×3 (05:24→22:02)
[2021-03-21] MEDS: POTASSIUM BICARB 20meq eff tab 20 MEQ TABLET.EFF OGT PRN ×3 (05:57→14:25)
--- NOTE | 2021-03-21 06:24 | NUR ---
Problems reprioritized. Patient report given, questions answered & plan of care reviewed with Reba CARRILLO.
--- NOTE | 2021-03-21 06:45 | NUR ---
[facility] I have received report from Jennifer Machado RN and had the opportunity to ask questions and assume patient care. Addendum: 03/21/21 at 0646 by Reba Hilliard RN Amended: Links added.
[2021-03-21] MEDS: methylPREDNISolone sod succ/PF 40mg inj. IV SCH ×2 (07:36→15:34)
[2021-03-21] MEDS: lactobacillus rhamnosus 10,000 MMU CELLS/CAPSULE OGT SCH ×2 (07:37→20:01)
[2021-03-21] MEDS: docusate sodium 100mg/10ml UD cup OGT SCH ×2 (07:37→20:00)
[2021-03-21] MEDS: enoxaparin 80mg/0.8ml syringe SUBCUT SCH ×2 (07:37→20:00)
[2021-03-21] MEDS: famotidine 20mg tablet OGT SCH ×2 (07:37→20:01)
[2021-03-21] MEDS: furosemide 40mg/4ml inj IV SCH ×2 (07:37→20:01)
[2021-03-21] MEDS: K and/or MAG REPLACEMENT MC SCH ×2 (07:56→20:02)
--- NOTE | 2021-03-21 09:00 | NUR ---
ROUNDS WITH DR. BARTH NOTE: Unable to call pt's brother today due to high pt. [facility], DC ART line as RN mentioned it has been in since 03/05, continue current treatment.
--- NOTE | 2021-03-21 15:56 | NUR ---
Wound pics taken of mini. macrell.
--- NOTE | 2021-03-21 18:00 | NUR ---
Problems reprioritized. Patient report given, questions answered & plan of care reviewed with NOC RN FAYE.
--- NOTE | 2021-03-21 18:35 | NUR ---
I have received report and assumed care of pt.
[2021-03-21] MEDS: insulin glargine (Lantus) pen - multi-dose SQ SCH (21:55)
--- NOTE | 2021-03-21 21:57 | NUR ---
hs cares complete pt tolerated well, pt did nancy down to 42 when turned to his left side, pt remained in a sinus rhythm.
--- NOTE | 2021-03-21 23:01 | NUR ---
no changes in status noted
[2021-03-22] VITALS (24 sets, daily range): BP systolic 88–172; BP diastolic 47–107
[2021-03-22] MEDS: methylPREDNISolone sod succ/PF 40mg inj. IV SCH ×3 (00:06→19:25)
[2021-03-22] MEDS: midazolam 100mg in NS 100ml 100 ML IV PRN ×4 (00:07→19:28)
[2021-03-22] MEDS: FENTANYL-0.9 % NACL/PF 100 ML IV PRN ×7 (00:08→22:09)
[2021-03-22 02:04] LABS: ABG BASE EXCESS 12.7 mmol/L (-2.0-2.0); ABG HCO3 39.2 mmol/L (22.0-26.0); ABG PCO2 (T) 60.8 mmHg (35.0-48.0); ABG PO2 (T) 78.1 mmHg (75.0-100.0); ALLEN'S TEST POSITIVE; FCOHb 0.4 % (0.0-3.9); FMetHb 0.2 % (0.0-1.5); FO2Hb 93.4 % (94-97); PATIENT TEMPERATURE 37.7; PEEP 13 cm H2O; RESPIRATORY RATE 20 b/min; TIDAL VOLUME 425 mL; TOTAL HEMOGLOBIN 12.5 G/dl (14.0-18.0)
--- NOTE | 2021-03-22 02:10 | NUR ---
lab work sent no distress noted,
[2021-03-22] MEDS: mineral oil/petrolatum ophthal oint EACHEYE SCH ×4 (02:24→19:24)
[2021-03-22] MEDS: CISatracurium besylate inj. 100 MG in normal saline 100ml IV soln 90 ML IV SCH (02:59)
[2021-03-22 03:25] LABS: BASOPHILS % (AUTO) 0.1 % (0-1); EOSINOPHILS # (AUTO) 0.2 X10'3 (0-0.9); EOSINOPHILS % (AUTO) 1.2 % (0-6); HEMATOCRIT 34.9 % (42.0-52.0); HEMOGLOBIN 11.5 g/dl (14.0-17.9); LYMPHOCYTES # (AUTO) 1.1 X10'3 (1.1-4.8); LYMPHOCYTES % (AUTO) 8.3 % (21-51); MEAN CORPUSCULAR HEMOGLOBIN 31.3 PG (27.0-31.0); MEAN PLATELET VOLUME 8.4 FL (7.4-10.4); MONOCYTES # (AUTO) 0.6 X10'3 (0-0.9); MONOCYTES % (AUTO) 4.4 % (2-12); NEUTROPHILS # (AUTO) 11.5 X10'3 (1.8-7.7); PLATELET COUNT 138 X10'3 (140-440); RED BLOOD COUNT 3.68 X10'6 (4.70-6.10); RED CELL DISTRIBUTION WIDTH 14.9 % (11.5-14.5); WHITE BLOOD COUNT 13.3 X10'3 (4.5-11.0)
[2021-03-22 03:44] LABS: D-DIMER 0.99 MG/L FEU (0-0.50)
[2021-03-22 03:48] LABS: ALANINE AMINOTRANSFERASE 46 U/L (12-78); ALBUMIN 2.4 G/DL (3.4-5.0); ALBUMIN/GLOBULIN RATIO 0.7 (1.1-1.5); ALKALINE PHOSPHATASE 53 IU/L (46-116); ANION GAP 1 (8-16); ASPARTATE AMINO TRANSFERASE 15 U/L (10-37); BILIRUBIN,TOTAL 0.4 MG/DL (0.1-1.0); BLOOD UREA NITROGEN 30 MG/DL (7-18); BUN/CREATININE RATIO 54.5 (5.4-32.0); C-REACTIVE PROTEIN 1.62 MG/DL (0.0-0.5); CALCIUM 8.2 MG/DL (8.5-10.1); CHLORIDE 105 MMOL/L (99-107); CREATININE 0.55 MG/DL (0.60-1.10); GLUCOSE 98 MG/DL (70-104); MAGNESIUM 2.2 MG/DL (1.5-2.4); PHOSPHORUS 3.6 MG/DL (2.3-4.5); POTASSIUM 3.9 MMOL/L (3.5-5.1); PREALBUMIN 37.6 MG/DL (19-36); SODIUM 144 MMOL/L (135-145); TOTAL CARBON DIOXIDE 38.2 MMOL/L (24-32); TOTAL PROTEIN 5.9 G/DL (6.4-8.2); eGFR > 90 ML/MIN
[2021-03-22] MEDS: propofol 1000mg/100ml bottle 100 ML IV SCH ×3 (04:01→16:26)
[2021-03-22] MEDS: piperacillin/tazo 4.5gm/100ml 100 ML IV SCH (05:56)
--- NOTE | 2021-03-22 06:35 | NUR ---
Patient in room [facility] 2008. I have received report from FAYE CARRILLO and had the opportunity to ask questions and assume patient care. No CXR done today. RN paged Radiology for daily CXR. Awaiting call back. Addendum: 03/22/21 at 0636 by Reba Hilliard RN Amended: Links added.
[2021-03-22] MEDS: docusate sodium 100mg/10ml UD cup OGT SCH ×2 (07:28→19:25)
[2021-03-22] MEDS: methylnaltrexone br 12mg/0.6ml inj***SubQ only SQ SCH (07:28)
[2021-03-22] MEDS: famotidine 20mg tablet OGT SCH ×2 (07:29→19:26)
[2021-03-22] MEDS: lactobacillus rhamnosus 10,000 MMU CELLS/CAPSULE OGT SCH ×2 (07:29→19:25)
[2021-03-22] MEDS: enoxaparin 80mg/0.8ml syringe SUBCUT SCH ×2 (07:29→19:26)
[2021-03-22] MEDS: furosemide 40mg/4ml inj IV SCH ×2 (07:29→19:24)
[2021-03-22] MEDS: K and/or MAG REPLACEMENT MC SCH ×2 (07:42→19:12)
[2021-03-22] MEDS: insulin regular, human U-100 3ml vial - multi-dose SQ SCH ×3 (07:42→20:59)
--- NOTE | 2021-03-22 09:34 | NUR ---
Dr. Mahajan here to see pt. Pt. is out of airborne isolation. Contact isolation remains.
--- NOTE | 2021-03-22 13:45 | NUR ---
Pt. transferred to regular hospital bed.
--- NOTE | 2021-03-22 16:17 | NUR ---
Went to turn pt. and discovered large amount of liquid stool in bed despite rectal tube. Pt. cleaned up, linens replaced, rectal tube removed and new rectal tube placed. Tried to wean sedation but pt's RR went up to 30, he kept peak-pressuring vent and he was using accessory muscles.
--- NOTE | 2021-03-22 18:16 | NUR ---
Problems reprioritized. Patient report given, questions answered & plan of care reviewed with Noc RN .
[2021-03-22] MEDS: insulin glargine (Lantus) pen - multi-dose SQ SCH (20:58)
[2021-03-22] MEDS: labetalol 20mg/4ml (5mg/ml) syringe IV PRN (23:43)
[2021-03-23] VITALS (24 sets, daily range): BP systolic 92–181; BP diastolic 43–102
[2021-03-23] MEDS ORDERED: furosemide 40mg/4ml inj IV ONE
[2021-03-23] MEDS: mineral oil/petrolatum ophthal oint EACHEYE SCH ×4 (01:42→20:09)
[2021-03-23] MEDS: midazolam 100mg in NS 100ml 100 ML IV PRN ×4 (01:43→20:11)
[2021-03-23] MEDS: FENTANYL-0.9 % NACL/PF 100 ML IV PRN ×5 (02:31→21:34)
[2021-03-23] MEDS: insulin regular, human U-100 3ml vial - multi-dose SQ SCH ×4 (03:42→20:15)
[2021-03-23 03:47] LABS: ABG BASE EXCESS 13.5 mmol/L (-2.0-2.0); ABG HCO3 40.1 mmol/L (22.0-26.0); ABG OXYGEN SATURATION 95.8 % (94-97); ABG PO2 (T) 83.3 mmHg (75.0-100.0); ALLEN'S TEST po; FCOHb 0.3 % (0.0-3.9); FMetHb 0.1 % (0.0-1.5); FO2Hb 95.4 % (94-97); PEEP 13 cm H2O; RESPIRATORY RATE 20 b/min; TIDAL VOLUME 425 mL; TOTAL HEMOGLOBIN 11.9 G/dl (14.0-18.0)
[2021-03-23 03:50] LABS: BASOPHILS # (AUTO) 0.1 X10'3 (0-0.2); BASOPHILS % (AUTO) 0.8 % (0-1); EOSINOPHILS % (AUTO) 0.3 % (0-6); HEMATOCRIT 33.2 % (42.0-52.0); HEMOGLOBIN 11.1 g/dl (14.0-17.9); LYMPHOCYTES # (AUTO) 0.8 X10'3 (1.1-4.8); LYMPHOCYTES % (AUTO) 7.2 % (21-51); MEAN CORPUSCULAR HEMOGLOBIN 31.4 PG (27.0-31.0); MEAN CORPUSCULAR HGB CONC 33.6 g/dL (33.0-36.5); MEAN CORPUSCULAR VOLUME 93.5 FL (78-98); MEAN PLATELET VOLUME 8.6 FL (7.4-10.4); MONOCYTES # (AUTO) 0.4 X10'3 (0-0.9); NEUTROPHILS # (AUTO) 9.7 X10'3 (1.8-7.7); NEUTROPHILS % (AUTO) 87.7 % (42-75); PLATELET COUNT 125 X10'3 (140-440); RED BLOOD COUNT 3.55 X10'6 (4.70-6.10); RED CELL DISTRIBUTION WIDTH 14.8 % (11.5-14.5)
[2021-03-23 04:03] LABS: D-DIMER 0.95 MG/L FEU (0-0.50)
[2021-03-23 04:04] LABS: C-REACTIVE PROTEIN 1.46 MG/DL (0.0-0.5)
[2021-03-23] MEDS: propofol 1000mg/100ml bottle 100 ML IV SCH ×4 (04:42→21:54)
--- NOTE | 2021-03-23 06:29 | NUR ---
[facility] I have received report from Lynne CARRILLO and had the opportunity to ask questions and assume patient care. CXR not done (2nd day in a row.) Day RN asked CLEMENT CARRILLO to please order CXR as it is policy to obtain daily CXR when pt's intubated. Rad. mcgee. Addendum: 03/23/21 at 0631 by Reba Hilliard RN Amended: Links added.
[2021-03-23 07:43] LABS: ALANINE AMINOTRANSFERASE 49 U/L (12-78); ALBUMIN 2.3 G/DL (3.4-5.0); ALBUMIN/GLOBULIN RATIO 0.7 (1.1-1.5); ALKALINE PHOSPHATASE 59 IU/L (46-116); ANION GAP 6 (8-16); ASPARTATE AMINO TRANSFERASE 19 U/L (10-37); BILIRUBIN,TOTAL 0.4 MG/DL (0.1-1.0); BLOOD UREA NITROGEN 25 MG/DL (7-18); CALCIUM 8.2 MG/DL (8.5-10.1); CHLORIDE 104 MMOL/L (99-107); CREATININE 0.41 MG/DL (0.60-1.10); GLUCOSE 133 MG/DL (70-104); PHOSPHORUS 4.2 MG/DL (2.3-4.5); SODIUM 145 MMOL/L (135-145); TOTAL PROTEIN 5.7 G/DL (6.4-8.2); eGFR > 90 ML/MIN
[2021-03-23] MEDS: famotidine 20mg tablet OGT SCH ×2 (07:50→20:30)
[2021-03-23] MEDS: docusate sodium 100mg/10ml UD cup OGT SCH ×2 (07:50→19:59)
[2021-03-23] MEDS: lactobacillus rhamnosus 10,000 MMU CELLS/CAPSULE OGT SCH ×2 (07:50→20:11)
[2021-03-23] MEDS: furosemide 40mg/4ml inj IV SCH ×2 (07:50→20:10)
[2021-03-23] MEDS: methylPREDNISolone sod succ/PF 40mg inj. IV SCH ×2 (07:50→20:11)
[2021-03-23] MEDS: enoxaparin 80mg/0.8ml syringe SUBCUT SCH ×2 (07:51→20:10)
[2021-03-23] MEDS: K and/or MAG REPLACEMENT MC SCH ×2 (07:59→19:58)
--- NOTE | 2021-03-23 11:01 | NUR ---
Reassessment: Pt off rotoprone bed 03/22. Remains intubated and tolerating TF at goal rate with GRV WNL. TC to RN who reports Propofol is currently running at 15.3 mL/hr however RN is working on reducing the rate. Current Propofol rate is providing ~404 kcal/day if to run for 24 hours. Will not adjust TF recommendations at this time as Propofol rate is being adjusted. LBM 03/22 documented with 500 mL stool output from rectal tube per I&O. Pt continues receiving routine Colace and Relistor. No changes to nutrition intervention recommendations at this time. Will continue to follow. Recommendations: 1) Continuous TF via OGT using Vital High Protein at goal rate of 75 mL/hr to provide 1800 mL total volume/day, 1800 kcal, 158 g protein, and 1512 mL water. 2) Additional 100 mL water flush Q4H; monitor serum Na 3) Prealbumin q Monday/; daily scaled wt 4) Routine bowel care and opioid antagonist per MD 5) Monitor Propofol rate and need to adjust TF recommendations Addendum: 03/23/21 at [address] Amended: Links added.
--- NOTE | 2021-03-23 11:53 | NUR ---
Dr. Mattson stated he would call family (brother ) today.
[2021-03-23] MEDS: acetaZOLAMIDE IV 500mg inj IV SCH ×2 (12:43→20:10)
--- NOTE | 2021-03-23 15:31 | NUR ---
Updated Effrain on pt. status..
--- NOTE | 2021-03-23 18:09 | NUR ---
Problems reprioritized. Patient report given, questions answered & plan of care reviewed with NOC RN.
[2021-03-23] MEDS: insulin glargine (Lantus) pen - multi-dose SQ SCH (20:17)
[2021-03-24] VITALS (23 sets, daily range): BP systolic 90–149; BP diastolic 48–96
[2021-03-24] MEDS: midazolam 100mg in NS 100ml 100 ML IV PRN ×3 (01:43→19:14)
[2021-03-24] MEDS: mineral oil/petrolatum ophthal oint EACHEYE SCH ×4 (01:43→20:58)
[2021-03-24] MEDS: FENTANYL-0.9 % NACL/PF 100 ML IV PRN ×4 (01:44→19:15)
[2021-03-24] MEDS: insulin regular, human U-100 3ml vial - multi-dose SQ SCH ×4 (03:51→22:01)
[2021-03-24 04:05] LABS: ABG BASE EXCESS 4.1 mmol/L (-2.0-2.0); ABG OXYGEN SATURATION 94.6 % (94-97); ABG PCO2 (T) 57.2 mmHg (35.0-48.0); ABG PO2 (T) 79.2 mmHg (75.0-100.0); ALLEN'S TEST POSITIVE; FCOHb 0.6 % (0.0-3.9); FMetHb 0.3 % (0.0-1.5); FO2Hb 93.7 % (94-97); PATIENT TEMPERATURE 37.2; PEEP 13 cm H2O; RESPIRATORY RATE 20 b/min; TIDAL VOLUME 425 mL; TOTAL HEMOGLOBIN 13.2 G/dl (14.0-18.0)
[2021-03-24] MEDS: propofol 1000mg/100ml bottle 100 ML IV SCH ×4 (04:49→17:53)
[2021-03-24 06:17] LABS: D-DIMER 1.08 MG/L FEU (0-0.50)
[2021-03-24 06:20] LABS: C-REACTIVE PROTEIN 2.69 MG/DL (0.0-0.5)
[2021-03-24] MEDS: K and/or MAG REPLACEMENT MC SCH ×2 (08:00→19:30)
[2021-03-24 09:16] LABS: BASOPHILS % (AUTO) 0.2 % (0-1); EOSINOPHILS # (AUTO) 0.4 X10'3 (0-0.9); EOSINOPHILS % (AUTO) 3.8 % (0-6); HEMOGLOBIN 11.8 g/dl (14.0-17.9); LYMPHOCYTES # (AUTO) 1.2 X10'3 (1.1-4.8); LYMPHOCYTES % (AUTO) 12.8 % (21-51); MEAN CORPUSCULAR HEMOGLOBIN 31.6 PG (27.0-31.0); MEAN CORPUSCULAR HGB CONC 33.8 g/dL (33.0-36.5); MEAN CORPUSCULAR VOLUME 93.7 FL (78-98); MEAN PLATELET VOLUME 7.9 FL (7.4-10.4); MONOCYTES # (AUTO) 0.5 X10'3 (0-0.9); MONOCYTES % (AUTO) 5.1 % (2-12); NEUTROPHILS # (AUTO) 7.5 X10'3 (1.8-7.7); NEUTROPHILS % (AUTO) 78.1 % (42-75); PLATELET COUNT 116 X10'3 (140-440); RED BLOOD COUNT 3.74 X10'6 (4.70-6.10); RED CELL DISTRIBUTION WIDTH 15.3 % (11.5-14.5); WHITE BLOOD COUNT 9.5 X10'3 (4.5-11.0)
[2021-03-24] MEDS: furosemide 40mg/4ml inj IV SCH ×2 (09:19→20:59)
[2021-03-24] MEDS: docusate sodium 100mg/10ml UD cup OGT SCH ×2 (09:19→19:31)
[2021-03-24] MEDS: famotidine 20mg tablet OGT SCH ×2 (09:20→20:58)
[2021-03-24] MEDS: methylPREDNISolone sod succ/PF 40mg inj. IV SCH ×2 (09:20→20:59)
[2021-03-24] MEDS: enoxaparin 80mg/0.8ml syringe SUBCUT SCH ×2 (09:21→20:59)
[2021-03-24] MEDS: acetaZOLAMIDE IV 500mg inj IV SCH ×2 (09:22→21:04)
[2021-03-24] MEDS: lactobacillus rhamnosus 10,000 MMU CELLS/CAPSULE OGT SCH ×2 (09:22→20:58)
[2021-03-24] MEDS: methylnaltrexone br 12mg/0.6ml inj***SubQ only SQ SCH (09:25)
[2021-03-24 09:28] LABS: D-DIMER 1.06 MG/L FEU (0-0.50)
[2021-03-24 09:32] LABS: ALANINE AMINOTRANSFERASE 66 U/L (12-78); ALBUMIN 2.1 G/DL (3.4-5.0); ALBUMIN/GLOBULIN RATIO 0.6 (1.1-1.5); ALKALINE PHOSPHATASE 70 IU/L (46-116); ANION GAP 5 (8-16); ASPARTATE AMINO TRANSFERASE 21 U/L (10-37); BILIRUBIN,TOTAL 0.4 MG/DL (0.1-1.0); BLOOD UREA NITROGEN 26 MG/DL (7-18); BUN/CREATININE RATIO 78.8 (5.4-32.0); CALCIUM 7.9 MG/DL (8.5-10.1); CHLORIDE 106 MMOL/L (99-107); CREATININE 0.33 MG/DL (0.60-1.10); GLUCOSE 93 MG/DL (70-104); POTASSIUM 3.7 MMOL/L (3.5-5.1); SODIUM 144 MMOL/L (135-145); TOTAL CARBON DIOXIDE 33.1 MMOL/L (24-32); TOTAL PROTEIN 5.6 G/DL (6.4-8.2); eGFR > 90 ML/MIN
[2021-03-24] MEDS: insulin glargine (Lantus) pen - multi-dose SQ SCH (21:59)
[2021-03-25] VITALS (23 sets, daily range): BP systolic 89–189; BP diastolic 54–103
[2021-03-25] MEDS: propofol 1000mg/100ml bottle 100 ML IV SCH ×2 (00:24→13:13)
[2021-03-25] MEDS: FENTANYL-0.9 % NACL/PF 100 ML IV PRN ×5 (00:24→23:20)
[2021-03-25 02:46] LABS: ABG BASE EXCESS 3.2 mmol/L (-2.0-2.0); ABG HCO3 29.3 mmol/L (22.0-26.0); ABG OXYGEN SATURATION 96.7 % (94-97); ABG PCO2 (T) 51.5 mmHg (35.0-48.0); ABG PO2 (T) 93.2 mmHg (75.0-100.0); ALLEN'S TEST POSITIVE; FMetHb 0.4 % (0.0-1.5); FO2Hb 95.3 % (94-97); PATIENT TEMPERATURE 37.4; PEEP 13 cm H2O; RESPIRATORY RATE 20 b/min; TIDAL VOLUME 425 mL; TOTAL HEMOGLOBIN 13.2 G/dl (14.0-18.0)
[2021-03-25] MEDS: mineral oil/petrolatum ophthal oint EACHEYE SCH ×4 (02:51→21:20)
[2021-03-25] MEDS: insulin regular, human U-100 3ml vial - multi-dose SQ SCH ×4 (02:55→20:59)
[2021-03-25 03:32] LABS: BASOPHILS % (AUTO) 0.3 % (0-1); EOSINOPHILS # (AUTO) 0.1 X10'3 (0-0.9); EOSINOPHILS % (AUTO) 0.4 % (0-6); HEMATOCRIT 37.6 % (42.0-52.0); HEMOGLOBIN 12.2 g/dl (14.0-17.9); LYMPHOCYTES # (AUTO) 0.7 X10'3 (1.1-4.8); LYMPHOCYTES % (AUTO) 5.5 % (21-51); MEAN CORPUSCULAR HEMOGLOBIN 31.1 PG (27.0-31.0); MEAN CORPUSCULAR HGB CONC 32.5 g/dL (33.0-36.5); MEAN CORPUSCULAR VOLUME 95.6 FL (78-98); MEAN PLATELET VOLUME 8.8 FL (7.4-10.4); MONOCYTES # (AUTO) 0.3 X10'3 (0-0.9); MONOCYTES % (AUTO) 2.5 % (2-12); NEUTROPHILS # (AUTO) 11.1 X10'3 (1.8-7.7); NEUTROPHILS % (AUTO) 91.3 % (42-75); PLATELET COUNT 119 X10'3 (140-440); RED BLOOD COUNT 3.93 X10'6 (4.70-6.10); RED CELL DISTRIBUTION WIDTH 15.8 % (11.5-14.5); WHITE BLOOD COUNT 12.1 X10'3 (4.5-11.0)
[2021-03-25 03:54] LABS: ALANINE AMINOTRANSFERASE 63 U/L (12-78); ALBUMIN 2.3 G/DL (3.4-5.0); ALBUMIN/GLOBULIN RATIO 0.6 (1.1-1.5); ALKALINE PHOSPHATASE 75 IU/L (46-116); ANION GAP 4 (8-16); ASPARTATE AMINO TRANSFERASE 18 U/L (10-37); BILIRUBIN,TOTAL 0.4 MG/DL (0.1-1.0); BLOOD UREA NITROGEN 26 MG/DL (7-18); BUN/CREATININE RATIO 72.2 (5.4-32.0); CALCIUM 7.9 MG/DL (8.5-10.1); CHLORIDE 106 MMOL/L (99-107); CREATININE 0.36 MG/DL (0.60-1.10); GLUCOSE 102 MG/DL (70-104); MAGNESIUM 2.3 MG/DL (1.5-2.4); PHOSPHORUS 3.3 MG/DL (2.3-4.5); POTASSIUM 3.9 MMOL/L (3.5-5.1); SODIUM 143 MMOL/L (135-145); eGFR > 90 ML/MIN
[2021-03-25] MEDS: midazolam 100mg in NS 100ml 100 ML IV PRN ×2 (06:48→16:18)
[2021-03-25] MEDS: furosemide 40mg/4ml inj IV SCH ×3 (08:00→21:11)
[2021-03-25] MEDS: K and/or MAG REPLACEMENT MC SCH ×2 (08:00→20:00)
[2021-03-25] MEDS: methylPREDNISolone sod succ/PF 40mg inj. IV SCH ×2 (08:35→21:11)
[2021-03-25] MEDS: docusate sodium 100mg/10ml UD cup OGT SCH ×2 (08:35→20:00)
[2021-03-25] MEDS: famotidine 20mg tablet OGT SCH ×2 (08:35→21:03)
[2021-03-25] MEDS: lactobacillus rhamnosus 10,000 MMU CELLS/CAPSULE OGT SCH ×2 (08:35→20:00)
[2021-03-25] MEDS: enoxaparin 80mg/0.8ml syringe SUBCUT SCH ×2 (08:36→21:04)
[2021-03-25] MEDS: acetaZOLAMIDE IV 500mg inj IV SCH ×2 (08:36→21:14)
--- NOTE | 2021-03-25 10:30 | NUR ---
Sheath dc'd and pressure held for 10 minutes. femstop placed on right groin. Addendum: 03/25/21 at 1035 by Rhett Ding RN Disregard above note it was made in error.
--- NOTE | 2021-03-25 10:35 | NUR ---
Versed and propofol turned off
[2021-03-25] MEDS ORDERED: metoprolol tartrate 1mg/ml inj IV PRN (11:35)
[2021-03-25] MEDS: insulin glargine (Lantus) pen - multi-dose SQ SCH (21:01)
[2021-03-26] VITALS (24 sets, daily range): BP systolic 101–172; BP diastolic 60–107
[2021-03-26] MEDS: mineral oil/petrolatum ophthal oint EACHEYE SCH ×4 (02:09→20:08)
[2021-03-26] MEDS: insulin regular, human U-100 3ml vial - multi-dose SQ SCH ×3 (02:20→20:30)
[2021-03-26 03:25] LABS: BASOPHILS % (AUTO) 0.2 % (0-1); EOSINOPHILS # (AUTO) 0.1 X10'3 (0-0.9); EOSINOPHILS % (AUTO) 0.7 % (0-6); HEMATOCRIT 36.4 % (42.0-52.0); HEMOGLOBIN 11.9 g/dl (14.0-17.9); LYMPHOCYTES # (AUTO) 0.8 X10'3 (1.1-4.8); LYMPHOCYTES % (AUTO) 9.3 % (21-51); MEAN CORPUSCULAR HEMOGLOBIN 31.4 PG (27.0-31.0); MEAN CORPUSCULAR HGB CONC 32.8 g/dL (33.0-36.5); MEAN CORPUSCULAR VOLUME 95.7 FL (78-98); MEAN PLATELET VOLUME 8.3 FL (7.4-10.4); MONOCYTES # (AUTO) 0.3 X10'3 (0-0.9); MONOCYTES % (AUTO) 3.8 % (2-12); NEUTROPHILS # (AUTO) 7.4 X10'3 (1.8-7.7); PLATELET COUNT 132 X10'3 (140-440); RED CELL DISTRIBUTION WIDTH 16.3 % (11.5-14.5); WHITE BLOOD COUNT 8.6 X10'3 (4.5-11.0)
[2021-03-26 03:44] LABS: ALANINE AMINOTRANSFERASE 56 U/L (12-78); ALBUMIN 2.2 G/DL (3.4-5.0); ALBUMIN/GLOBULIN RATIO 0.6 (1.1-1.5); ALKALINE PHOSPHATASE 82 IU/L (46-116); ANION GAP 5 (8-16); ASPARTATE AMINO TRANSFERASE 14 U/L (10-37); BILIRUBIN,TOTAL 0.3 MG/DL (0.1-1.0); BLOOD UREA NITROGEN 23 MG/DL (7-18); CALCIUM 8.1 MG/DL (8.5-10.1); CHLORIDE 105 MMOL/L (99-107); CREATININE 0.39 MG/DL (0.60-1.10); GLUCOSE 165 MG/DL (70-104); MAGNESIUM 2.3 MG/DL (1.5-2.4); PHOSPHORUS 3.4 MG/DL (2.3-4.5); POTASSIUM 3.8 MMOL/L (3.5-5.1); SODIUM 142 MMOL/L (135-145); TOTAL PROTEIN 5.7 G/DL (6.4-8.2); eGFR > 90 ML/MIN
[2021-03-26 03:47] LABS: ABG BASE EXCESS 2.6 mmol/L (-2.0-2.0); ABG HCO3 29.5 mmol/L (22.0-26.0); ABG OXYGEN SATURATION 92.5 % (94-97); ABG PCO2 (T) 55.9 mmHg (35.0-48.0); ABG PO2 (T) 67.2 mmHg (75.0-100.0); ALLEN'S TEST Modified; FCOHb 0.3 % (0.0-3.9); FMetHb 0.3 % (0.0-1.5); FO2Hb 91.9 % (94-97); PEEP 13 cm H2O; RESPIRATORY RATE 20 b/min; TIDAL VOLUME 425 mL; TOTAL HEMOGLOBIN 12.6 G/dl (14.0-18.0)
[2021-03-26] MEDS: FENTANYL-0.9 % NACL/PF 100 ML IV PRN ×3 (05:10→20:23)
[2021-03-26] MEDS: K and/or MAG REPLACEMENT MC SCH ×2 (08:00→19:41)
[2021-03-26] MEDS: famotidine 20mg tablet OGT SCH (08:28)
[2021-03-26] MEDS: lactobacillus rhamnosus 10,000 MMU CELLS/CAPSULE OGT SCH ×2 (08:29→20:08)
[2021-03-26] MEDS: docusate sodium 100mg/10ml UD cup OGT SCH ×2 (08:30→19:42)
[2021-03-26] MEDS: furosemide 40mg/4ml inj IV SCH ×2 (08:38→20:08)
[2021-03-26] MEDS: enoxaparin 80mg/0.8ml syringe SUBCUT SCH ×2 (08:38→20:09)
[2021-03-26] MEDS: methylPREDNISolone sod succ/PF 40mg inj. IV SCH (08:39)
[2021-03-26] MEDS: acetaZOLAMIDE IV 500mg inj IV SCH (08:41)
[2021-03-26] MEDS: midazolam 100mg in NS 100ml 100 ML IV PRN ×2 (10:03→20:23)
[2021-03-26] MEDS: propofol 1000mg/100ml bottle 100 ML IV SCH (11:58)
--- NOTE | 2021-03-26 11:58 | NUR ---
F/u 03/26: Pt tolerating TF at goal GRV WNL. Noted Glucerna currently running for TF w/ shortage of Vital High Protein. Dietary and RN notified to send/start Vital AF at goal rate for optimal TF substitution. Rectal tube -550ml output yesterday w/ -100ml output so far this shift per RN. Propofol previously running however to remain off and to start different medication per recycling or rubbish collector. Will continue to monitor for TF tolerance and adjustment needs on vent. Recommendations: 1) Continuous TF via OGT using Vital High Protein at goal rate of 75 mL/hr to provide 1800 mL total volume/day, 1800 kcal, 158 g protein, and 1512 mL water. 2) Additional 100 mL water flush Q4H; monitor serum Na 3) IF out of Vital High Protein; substitute temporarily using Vital AF at current goal rate 4) Prealbumin q Monday/; daily scaled wt 5) Routine bowel care and opioid antagonist per Addendum: 03/26/21 at [address] RD Amended: Links added.
[2021-03-26] MEDS: DEXMEDETOMIDINE 400MCG in NORMAL SALINE 100ml IV SCH ×3 (13:48→20:24)
[2021-03-26] MEDS: insulin glargine (Lantus) pen - multi-dose SQ SCH (20:31)
[2021-03-27] VITALS (24 sets, daily range): BP systolic 81–186; BP diastolic 45–102
[2021-03-27] MEDS: FENTANYL-0.9 % NACL/PF 100 ML IV PRN ×3 (00:46→10:34)
[2021-03-27] MEDS: DEXMEDETOMIDINE 400MCG in NORMAL SALINE 100ml IV SCH ×2 (00:51→10:36)
[2021-03-27] MEDS: mineral oil/petrolatum ophthal oint EACHEYE SCH ×4 (01:48→20:54)
[2021-03-27] MEDS: insulin regular, human U-100 3ml vial - multi-dose SQ SCH ×3 (01:50→15:02)
[2021-03-27] MEDS: midazolam 100mg in NS 100ml 100 ML IV PRN ×3 (02:27→18:30)
[2021-03-27 03:08] LABS: BASOPHILS % (AUTO) 0.3 % (0-1); EOSINOPHILS # (AUTO) 0.3 X10'3 (0-0.9); EOSINOPHILS % (AUTO) 5.6 % (0-6); HEMATOCRIT 33.5 % (42.0-52.0); HEMOGLOBIN 11.2 g/dl (14.0-17.9); LYMPHOCYTES # (AUTO) 0.9 X10'3 (1.1-4.8); LYMPHOCYTES % (AUTO) 14.4 % (21-51); MEAN CORPUSCULAR HEMOGLOBIN 31.7 PG (27.0-31.0); MEAN CORPUSCULAR HGB CONC 33.4 g/dL (33.0-36.5); MEAN PLATELET VOLUME 8.4 FL (7.4-10.4); MONOCYTES # (AUTO) 0.4 X10'3 (0-0.9); MONOCYTES % (AUTO) 6.6 % (2-12); NEUTROPHILS # (AUTO) 4.5 X10'3 (1.8-7.7); NEUTROPHILS % (AUTO) 73.1 % (42-75); PLATELET COUNT 119 X10'3 (140-440); RED BLOOD COUNT 3.52 X10'6 (4.70-6.10); RED CELL DISTRIBUTION WIDTH 15.7 % (11.5-14.5); WHITE BLOOD COUNT 6.1 X10'3 (4.5-11.0)
[2021-03-27 03:11] LABS: D-DIMER 1.44 MG/L FEU (0-0.50)
[2021-03-27 03:15] LABS: ALANINE AMINOTRANSFERASE 43 U/L (12-78); ALBUMIN/GLOBULIN RATIO 0.6 (1.1-1.5); ALKALINE PHOSPHATASE 66 IU/L (46-116); ANION GAP 2 (8-16); ASPARTATE AMINO TRANSFERASE 13 U/L (10-37); BILIRUBIN,TOTAL 0.3 MG/DL (0.1-1.0); BLOOD UREA NITROGEN 29 MG/DL (7-18); BUN/CREATININE RATIO 90.6 (5.4-32.0); C-REACTIVE PROTEIN 3.13 MG/DL (0.0-0.5); CALCIUM 7.6 MG/DL (8.5-10.1); CHLORIDE 108 MMOL/L (99-107); CREATININE 0.32 MG/DL (0.60-1.10); GLUCOSE 131 MG/DL (70-104); PHOSPHORUS 3.2 MG/DL (2.3-4.5); POTASSIUM 3.1 MMOL/L (3.5-5.1); SODIUM 146 MMOL/L (135-145); TOTAL CARBON DIOXIDE 35.7 MMOL/L (24-32); TOTAL PROTEIN 5.1 G/DL (6.4-8.2); eGFR > 90 ML/MIN
[2021-03-27 03:35] LABS: ABG HCO3 38.5 mmol/L (22.0-26.0); ABG OXYGEN SATURATION 95.1 % (94-97); ABG PCO2 (T) 68.3 mmHg (35.0-48.0); ABG PO2 (T) 79.7 mmHg (75.0-100.0); ALLEN'S TEST Modified; FCOHb 0.1 % (0.0-3.9); FMetHb 0.2 % (0.0-1.5); FO2Hb 94.8 % (94-97); PATIENT TEMPERATURE 37.6; PEEP 12 cm H2O; RESPIRATORY RATE 20 b/min; TIDAL VOLUME 425 mL; TOTAL HEMOGLOBIN 12.2 G/dl (14.0-18.0)
[2021-03-27] MEDS: POTASSIUM BICARB 20meq eff tab 20 MEQ TABLET.EFF OGT PRN ×3 (05:40→15:07)
[2021-03-27] MEDS: K and/or MAG REPLACEMENT MC SCH ×2 (08:00→20:00)
[2021-03-27] MEDS: methylPREDNISolone sod succ/PF 40mg inj. IV SCH (08:45)
[2021-03-27] MEDS: lactobacillus rhamnosus 10,000 MMU CELLS/CAPSULE OGT SCH ×2 (08:45→20:47)
[2021-03-27] MEDS: QUEtiapine 25mg tablet PO SCH ×2 (08:45→20:00)
[2021-03-27] MEDS: furosemide 40mg/4ml inj IV SCH ×2 (08:45→20:47)
[2021-03-27] MEDS: docusate sodium 100mg/10ml UD cup OGT SCH ×2 (08:45→20:47)
[2021-03-27] MEDS: enoxaparin 80mg/0.8ml syringe SUBCUT SCH ×2 (08:46→20:47)
[2021-03-27] MEDS: dexmedetomidin/NS 400mcg/100ml 100 ML IV SCH ×2 (15:07→21:24)
--- NOTE | 2021-03-27 18:59 | NUR ---
Report given to GERARDO Odell
[2021-03-27] MEDS: insulin glargine (Lantus) pen - multi-dose SQ SCH (21:52)
[2021-03-28] VITALS (24 sets, daily range): BP systolic 90–179; BP diastolic 56–106
--- NOTE | 2021-03-28 02:23 | NUR ---
Pt has 1 bowel movement in this shift, feeding running as order no signs of aspiration noted, no changes in status noted will continue to monitor and report changes
[2021-03-28] MEDS: midazolam 100mg in NS 100ml 100 ML IV PRN ×2 (02:28→17:34)
[2021-03-28] MEDS: dexmedetomidin/NS 400mcg/100ml 100 ML IV SCH ×4 (02:31→22:10)
[2021-03-28] MEDS: mineral oil/petrolatum ophthal oint EACHEYE SCH ×4 (02:32→20:26)
[2021-03-28 03:37] LABS: ABG HCO3 39.8 mmol/L (22.0-26.0); ABG OXYGEN SATURATION 91.4 % (94-97); ABG PCO2 (T) 56.1 mmHg (35.0-48.0); ABG PO2 (T) 57.7 mmHg (75.0-100.0); ALLEN'S TEST Modified; FCOHb 0.6 % (0.0-3.9); FMetHb 0.2 % (0.0-1.5); FO2Hb 90.7 % (94-97); PATIENT TEMPERATURE 37.4; PEEP 11 cm H2O; RESPIRATORY RATE 20 b/min; TIDAL VOLUME 425 mL; TOTAL HEMOGLOBIN 12.6 G/dl (14.0-18.0)
[2021-03-28 04:37] LABS: BASOPHILS % (AUTO) 0.3 % (0-1); EOSINOPHILS # (AUTO) 0.5 X10'3 (0-0.9); EOSINOPHILS % (AUTO) 8.1 % (0-6); HEMATOCRIT 33.3 % (42.0-52.0); HEMOGLOBIN 11.6 g/dl (14.0-17.9); LYMPHOCYTES % (AUTO) 30.4 % (21-51); MEAN CORPUSCULAR HEMOGLOBIN 32.3 PG (27.0-31.0); MEAN CORPUSCULAR HGB CONC 34.7 g/dL (33.0-36.5); MEAN CORPUSCULAR VOLUME 93.1 FL (78-98); MEAN PLATELET VOLUME 8.4 FL (7.4-10.4); MONOCYTES # (AUTO) 0.4 X10'3 (0-0.9); MONOCYTES % (AUTO) 6.2 % (2-12); NEUTROPHILS # (AUTO) 3.6 X10'3 (1.8-7.7); PLATELET COUNT 125 X10'3 (140-440); RED BLOOD COUNT 3.57 X10'6 (4.70-6.10); RED CELL DISTRIBUTION WIDTH 16.3 % (11.5-14.5); WHITE BLOOD COUNT 6.5 X10'3 (4.5-11.0)
[2021-03-28 04:41] LABS: D-DIMER 1.87 MG/L FEU (0-0.50)
[2021-03-28 04:46] LABS: ALANINE AMINOTRANSFERASE 40 U/L (12-78); ALBUMIN/GLOBULIN RATIO 0.6 (1.1-1.5); ALKALINE PHOSPHATASE 63 IU/L (46-116); ANION GAP 4 (8-16); ASPARTATE AMINO TRANSFERASE 20 U/L (10-37); BILIRUBIN,TOTAL 0.4 MG/DL (0.1-1.0); BLOOD UREA NITROGEN 27 MG/DL (7-18); BUN/CREATININE RATIO 81.8 (5.4-32.0); C-REACTIVE PROTEIN 8.08 MG/DL (0.0-0.5); CALCIUM 8.1 MG/DL (8.5-10.1); CHLORIDE 105 MMOL/L (99-107); CREATININE 0.33 MG/DL (0.60-1.10); GLUCOSE 148 MG/DL (70-104); PHOSPHORUS 2.4 MG/DL (2.3-4.5); POTASSIUM 3.3 MMOL/L (3.5-5.1); SODIUM 144 MMOL/L (135-145); TOTAL CARBON DIOXIDE 35.2 MMOL/L (24-32); TOTAL PROTEIN 5.5 G/DL (6.4-8.2); eGFR > 90 ML/MIN
--- NOTE | 2021-03-28 06:20 | NUR ---
Problems reprioritized. Patient report given, questions answered & plan of care reviewed with Dax CARRILLO .
[2021-03-28] MEDS: docusate sodium 100mg/10ml UD cup OGT SCH ×2 (07:19→20:21)
[2021-03-28] MEDS: quetiapine 100mg tablet PO SCH ×2 (07:19→20:22)
[2021-03-28] MEDS: furosemide 40mg/4ml inj IV SCH ×2 (07:19→20:23)
[2021-03-28] MEDS: lactobacillus rhamnosus 10,000 MMU CELLS/CAPSULE OGT SCH ×2 (07:19→20:22)
[2021-03-28] MEDS: methylPREDNISolone sod succ/PF 40mg inj. IV SCH (07:19)
[2021-03-28] MEDS: enoxaparin 80mg/0.8ml syringe SUBCUT SCH ×2 (07:21→20:23)
[2021-03-28] MEDS: K and/or MAG REPLACEMENT MC SCH ×2 (08:00→20:00)
[2021-03-28] MEDS: insulin regular, human U-100 3ml vial - multi-dose SQ SCH ×3 (08:25→20:50)
[2021-03-28] MEDS: POTASSIUM BICARB 20meq eff tab 20 MEQ TABLET.EFF OGT PRN (09:52)
[2021-03-28] MEDS: labetalol 20mg/4ml (5mg/ml) syringe IV PRN (10:10)
[2021-03-28] MEDS ORDERED: POTASSIUM BICARB 20meq eff tab 20 MEQ TABLET.EFF PO ONE (14:00)
[2021-03-28] MEDS: FENTANYL-0.9 % NACL/PF 100 ML IV PRN ×2 (14:16→17:29)
--- NOTE | 2021-03-28 18:30 | NUR ---
Patient in room ICU 2042. I have received report from GERARDO Verduzco and had the opportunity to ask questions and assume patient care.
--- NOTE | 2021-03-28 18:30 | NUR ---
Problems reprioritized. Patient report given, questions answered & plan of care reviewed with GERARDO Grace.
[2021-03-28] MEDS: insulin glargine (Lantus) pen - multi-dose SQ SCH (20:53)
[2021-03-28] MEDS: QUEtiapine 25mg tablet PO SCH (21:18)
[2021-03-29] VITALS (24 sets, daily range): BP systolic 80–162; BP diastolic 45–99
[2021-03-29] MEDS: dexmedetomidin/NS 400mcg/100ml 100 ML IV SCH ×6 (01:53→21:49)
[2021-03-29] MEDS: cefepime 2g/NS 100ml ADVANTAGE 100 ML IV SCH ×3 (01:54→17:51)
[2021-03-29] MEDS: insulin regular, human U-100 3ml vial - multi-dose SQ SCH ×3 (02:55→14:59)
[2021-03-29] MEDS: mineral oil/petrolatum ophthal oint EACHEYE SCH ×4 (02:56→20:17)
[2021-03-29 03:34] LABS: BASOPHILS % (AUTO) 0.6 % (0-1); EOSINOPHILS # (AUTO) 0.3 X10'3 (0-0.9); EOSINOPHILS % (AUTO) 5.9 % (0-6); HEMATOCRIT 30.5 % (42.0-52.0); HEMOGLOBIN 10.6 g/dl (14.0-17.9); LYMPHOCYTES # (AUTO) 1.1 X10'3 (1.1-4.8); MEAN CORPUSCULAR HEMOGLOBIN 32.1 PG (27.0-31.0); MEAN CORPUSCULAR HGB CONC 34.6 g/dL (33.0-36.5); MEAN CORPUSCULAR VOLUME 92.9 FL (78-98); MEAN PLATELET VOLUME 7.7 FL (7.4-10.4); MONOCYTES # (AUTO) 0.4 X10'3 (0-0.9); MONOCYTES % (AUTO) 7.2 % (2-12); NEUTROPHILS # (AUTO) 3.5 X10'3 (1.8-7.7); NEUTROPHILS % (AUTO) 66.3 % (42-75); PLATELET COUNT 136 X10'3 (140-440); RED BLOOD COUNT 3.29 X10'6 (4.70-6.10); RED CELL DISTRIBUTION WIDTH 16.2 % (11.5-14.5); WHITE BLOOD COUNT 5.3 X10'3 (4.5-11.0)
[2021-03-29 03:43] LABS: D-DIMER 1.32 MG/L FEU (0-0.50)
[2021-03-29 03:46] LABS: ALANINE AMINOTRANSFERASE 54 U/L (12-78); ALBUMIN 1.8 G/DL (3.4-5.0); ALBUMIN/GLOBULIN RATIO 0.5 (1.1-1.5); ALKALINE PHOSPHATASE 63 IU/L (46-116); ANION GAP 3 (8-16); ASPARTATE AMINO TRANSFERASE 22 U/L (10-37); BILIRUBIN,TOTAL 0.4 MG/DL (0.1-1.0); BLOOD UREA NITROGEN 27 MG/DL (7-18); BUN/CREATININE RATIO 84.4 (5.4-32.0); C-REACTIVE PROTEIN 9.39 MG/DL (0.0-0.5); CHLORIDE 106 MMOL/L (99-107); CREATININE 0.32 MG/DL (0.60-1.10); GLUCOSE 138 MG/DL (70-104); MAGNESIUM 1.9 MG/DL (1.5-2.4); PHOSPHORUS 3.7 MG/DL (2.3-4.5); POTASSIUM 3.6 MMOL/L (3.5-5.1); SODIUM 145 MMOL/L (135-145); TOTAL CARBON DIOXIDE 36.2 MMOL/L (24-32); TOTAL PROTEIN 5.1 G/DL (6.4-8.2); eGFR > 90 ML/MIN
[2021-03-29] MEDS: FENTANYL-0.9 % NACL/PF 100 ML IV PRN ×3 (03:47→18:18)
[2021-03-29] MEDS: midazolam 100mg in NS 100ml 100 ML IV PRN ×2 (03:48→17:48)
[2021-03-29 04:49] LABS: ABG BASE EXCESS 7.2 mmol/L (-2.0-2.0); ABG HCO3 32.8 mmol/L (22.0-26.0); ABG OXYGEN SATURATION 93.2 % (94-97); ABG PCO2 (T) 52.9 mmHg (35.0-48.0); ABG PO2 (T) 74.9 mmHg (75.0-100.0); ALLEN'S TEST Modified; FCOHb 0.5 % (0.0-3.9); FMetHb 0.5 % (0.0-1.5); FO2Hb 92.3 % (94-97); PEEP 11 cm H2O; RESPIRATORY RATE 20 b/min; TIDAL VOLUME 425 mL; TOTAL HEMOGLOBIN 12.6 G/dl (14.0-18.0)
[2021-03-29] MEDS: VANCOmycin 1250MG/NS 250ml Bag 250 ML IV SCH ×3 (06:19→22:10)
--- NOTE | 2021-03-29 06:22 | NUR ---
Problems reprioritized. Patient report given, questions answered & plan of care reviewed with GERARDO Verduzco.
--- NOTE | 2021-03-29 06:24 | NUR ---
I have reviewed and agree with all interventions, assessments performed and documented by GERARDO Johns.
[2021-03-29] MEDS: furosemide 40mg/4ml inj IV SCH ×2 (07:32→19:59)
[2021-03-29] MEDS: famotidine 20mg tablet PO SCH ×2 (07:32→19:58)
[2021-03-29] MEDS: methylPREDNISolone sod succ/PF 40mg inj. IV SCH (07:32)
[2021-03-29] MEDS: lactobacillus rhamnosus 10,000 MMU CELLS/CAPSULE OGT SCH ×2 (07:33→19:59)
[2021-03-29] MEDS: QUEtiapine 25mg tablet PO SCH ×2 (07:33→19:59)
[2021-03-29] MEDS: enoxaparin 80mg/0.8ml syringe SUBCUT SCH ×2 (07:34→19:59)
[2021-03-29] MEDS: docusate sodium 100mg/10ml UD cup OGT SCH ×2 (08:00→20:00)
[2021-03-29] MEDS: K and/or MAG REPLACEMENT MC SCH ×2 (08:00→20:00)
--- NOTE | 2021-03-29 18:30 | NUR ---
Patient in room ICU 2042. I have received report from GERARDO Verduzco and had the opportunity to ask questions and assume patient care.
[2021-03-29] MEDS: insulin glargine (Lantus) pen - multi-dose SQ SCH (20:18)
[2021-03-29] MEDS ORDERED: VANCOMYCIN LEVEL IV ONE (21:30)
[2021-03-30] VITALS (24 sets, daily range): BP systolic 78–146; BP diastolic 37–85
[2021-03-30] MEDS: cefepime 2g/NS 100ml ADVANTAGE 100 ML IV SCH ×4 (00:12→23:44)
[2021-03-30] MEDS: dexmedetomidin/NS 400mcg/100ml 100 ML IV SCH ×7 (01:02→23:43)
[2021-03-30] MEDS: mineral oil/petrolatum ophthal oint EACHEYE SCH ×4 (02:04→23:45)
[2021-03-30] MEDS: FENTANYL-0.9 % NACL/PF 100 ML IV PRN ×4 (02:06→21:48)
[2021-03-30] MEDS: dextrose 50%-water 50ml dispensing syringe IV PRN ×2 (02:27→05:24)
[2021-03-30 03:05] LABS: BASOPHILS % (AUTO) 0.2 % (0-1); EOSINOPHILS # (AUTO) 0.2 X10'3 (0-0.9); EOSINOPHILS % (AUTO) 5.4 % (0-6); HEMATOCRIT 29.7 % (42.0-52.0); HEMOGLOBIN 10.2 g/dl (14.0-17.9); LYMPHOCYTES # (AUTO) 0.7 X10'3 (1.1-4.8); LYMPHOCYTES % (AUTO) 16.2 % (21-51); MEAN CORPUSCULAR HEMOGLOBIN 32.2 PG (27.0-31.0); MEAN CORPUSCULAR HGB CONC 34.4 g/dL (33.0-36.5); MEAN CORPUSCULAR VOLUME 93.6 FL (78-98); MEAN PLATELET VOLUME 7.9 FL (7.4-10.4); MONOCYTES # (AUTO) 0.4 X10'3 (0-0.9); MONOCYTES % (AUTO) 8.9 % (2-12); NEUTROPHILS # (AUTO) 3.1 X10'3 (1.8-7.7); NEUTROPHILS % (AUTO) 69.3 % (42-75); PLATELET COUNT 168 X10'3 (140-440); RED BLOOD COUNT 3.17 X10'6 (4.70-6.10); RED CELL DISTRIBUTION WIDTH 16.9 % (11.5-14.5); WHITE BLOOD COUNT 4.5 X10'3 (4.5-11.0)
[2021-03-30 03:12] LABS: D-DIMER 1.55 MG/L FEU (0-0.50)
[2021-03-30 03:23] LABS: ALANINE AMINOTRANSFERASE 48 U/L (12-78); ALBUMIN 1.7 G/DL (3.4-5.0); ALBUMIN/GLOBULIN RATIO 0.5 (1.1-1.5); ALKALINE PHOSPHATASE 61 IU/L (46-116); ANION GAP 4 (8-16); ASPARTATE AMINO TRANSFERASE 18 U/L (10-37); BILIRUBIN,TOTAL 0.5 MG/DL (0.1-1.0); BLOOD UREA NITROGEN 21 MG/DL (7-18); BUN/CREATININE RATIO 80.8 (5.4-32.0); C-REACTIVE PROTEIN 17.87 MG/DL (0.0-0.5); CALCIUM 7.9 MG/DL (8.5-10.1); CHLORIDE 106 MMOL/L (99-107); CREATININE 0.26 MG/DL (0.60-1.10); MAGNESIUM 1.6 MG/DL (1.5-2.4); PHOSPHORUS 2.8 MG/DL (2.3-4.5); POTASSIUM 3.1 MMOL/L (3.5-5.1); SODIUM 146 MMOL/L (135-145); TOTAL CARBON DIOXIDE 35.7 MMOL/L (24-32); TOTAL PROTEIN 5.3 G/DL (6.4-8.2); eGFR > 90 ML/MIN
[2021-03-30 03:25] LABS: GLUCOSE 31 MG/DL (70-104)
[2021-03-30 03:35] LABS: ABG BASE EXCESS 10.5 mmol/L (-2.0-2.0); ABG HCO3 35.3 mmol/L (22.0-26.0); ABG OXYGEN SATURATION 89.1 % (94-97); ABG PCO2 (T) 50.3 mmHg (35.0-48.0); ABG PO2 (T) 58.2 mmHg (75.0-100.0); ALLEN'S TEST Modified; FCOHb 0.9 % (0.0-3.9); FMetHb 0.2 % (0.0-1.5); FO2Hb 88.1 % (94-97); PEEP 10 cm H2O; RESPIRATORY RATE 20 b/min; TIDAL VOLUME 425 mL; TOTAL HEMOGLOBIN 11.1 G/dl (14.0-18.0)
[2021-03-30] MEDS: midazolam 100mg in NS 100ml 100 ML IV PRN ×2 (04:54→23:44)
[2021-03-30] MEDS: Dextrose 10%-water IV solution 1,000 ML IV SCH (05:48)
[2021-03-30] MEDS: VANCOmycin 1250MG/NS 250ml Bag 250 ML IV SCH (05:50)
[2021-03-30] MEDS ORDERED: potassium Cl 20 mEq/100mL bag IV ONE (06:05)
--- NOTE | 2021-03-30 06:15 | NUR ---
Patient in room ICU 2042. I have received report from Vikki CARRILLO and had the opportunity to ask questions and assume patient care.
--- NOTE | 2021-03-30 06:41 | NUR ---
Problems reprioritized. Patient report given, questions answered & plan of care reviewed with GERARDO Cordero.
[2021-03-30] MEDS ORDERED: NORepinephrine 8mg/ 250ml NS 250 ML IV PRN (06:45)
[2021-03-30] MEDS: K and/or MAG REPLACEMENT MC SCH ×2 (08:00→20:00)
[2021-03-30] MEDS: docusate sodium 100mg/10ml UD cup OGT SCH ×2 (08:00→20:00)
[2021-03-30] MEDS: enoxaparin 80mg/0.8ml syringe SUBCUT SCH ×2 (08:32→19:23)
[2021-03-30] MEDS: famotidine 20mg tablet PO SCH ×2 (08:34→19:23)
[2021-03-30] MEDS: lactobacillus rhamnosus 10,000 MMU CELLS/CAPSULE OGT SCH ×2 (08:34→19:23)
[2021-03-30] MEDS: QUEtiapine 25mg tablet PO SCH ×2 (08:34→19:23)
[2021-03-30] MEDS: methylPREDNISolone sod succ/PF 40mg inj. IV SCH (08:35)
[2021-03-30] MEDS: insulin regular, human U-100 3ml vial - multi-dose SQ SCH ×2 (10:55→13:49)
[2021-03-30] MEDS ORDERED: potassium Cl 40MEQ/1/2NS 520ml 520 ML IV PRN (11:25)
[2021-03-30] MEDS ORDERED: potassium Cl 20 mEq SR tablet OGT PRN ×2 (11:25)
--- NOTE | 2021-03-30 11:32 | NUR ---
F/u 03/30: Pt remains intubated and sedated, tolerating TF at goal using Vital HP at 75ml/hr GRV WNL. Per Suspender Maker at rounds today, pt may receive PEG tomorrow 03/31. Pt noted to have periods of hypoglycemia, currently receiving D5 at 40ml/hr providing 163kcals. Per RN, pt had large BM 03/29 Will continue to monitor for TF tolerance and adjustment needs on vent. Recommendations: 1) Continuous TF via OGT using Vital High Protein at goal rate of 75 mL/hr to provide 1800 mL total volume/day, 1800 kcal, 158 g protein, and 1512 mL water. 2) Additional 100 mL water flush Q4H; monitor serum Na 3) IF out of Vital High Protein; substitute temporarily using Vital AF at current goal rate 4) Prealbumin q Monday/; daily scaled wt 5) Routine bowel care and opioid antagonist per Addendum: 03/30/21 at [address] Amended: Links added.
--- NOTE | 2021-03-30 12:24 | NUR ---
Dr. Greg BRIGGS to see pt at rounds and after. at bedside around 1100 and MD discussed pts condition with him. He appears to take this setback (reintubation) hard. He contacted fam/friends with updates on pts condition.
--- NOTE | 2021-03-30 18:30 | NUR ---
Patient in room ICU 2042. I have received report from Gil CARRILLO and had the opportunity to ask questions and assume patient care.
--- NOTE | 2021-03-30 18:36 | NUR ---
Problems reprioritized. Patient report given, questions answered & plan of care reviewed with Lesly CARRILLO.
[2021-03-30] MEDS: insulin glargine (Lantus) pen - multi-dose SQ SCH (21:00)
[2021-03-31] VITALS (24 sets, daily range): BP systolic 88–168; BP diastolic 46–90
[2021-03-31] MEDS: mineral oil/petrolatum ophthal oint EACHEYE SCH ×4 (02:00→19:58)
[2021-03-31 02:53] LABS: BASOPHILS % (AUTO) 0.2 % (0-1); EOSINOPHILS # (AUTO) 0.2 X10'3 (0-0.9); EOSINOPHILS % (AUTO) 4.4 % (0-6); HEMATOCRIT 28.5 % (42.0-52.0); HEMOGLOBIN 9.5 g/dl (14.0-17.9); LYMPHOCYTES # (AUTO) 1.4 X10'3 (1.1-4.8); LYMPHOCYTES % (AUTO) 33.7 % (21-51); MEAN CORPUSCULAR HEMOGLOBIN 32.1 PG (27.0-31.0); MEAN CORPUSCULAR HGB CONC 33.4 g/dL (33.0-36.5); MEAN CORPUSCULAR VOLUME 95.8 FL (78-98); MEAN PLATELET VOLUME 8.7 FL (7.4-10.4); MONOCYTES # (AUTO) 0.4 X10'3 (0-0.9); MONOCYTES % (AUTO) 10.7 % (2-12); NEUTROPHILS # (AUTO) 2.1 X10'3 (1.8-7.7); PLATELET COUNT 184 X10'3 (140-440); RED BLOOD COUNT 2.97 X10'6 (4.70-6.10); RED CELL DISTRIBUTION WIDTH 16.9 % (11.5-14.5); WHITE BLOOD COUNT 4.2 X10'3 (4.5-11.0)
[2021-03-31 03:08] LABS: D-DIMER 1.53 MG/L FEU (0-0.50)
[2021-03-31 03:29] LABS: ALANINE AMINOTRANSFERASE 44 U/L (12-78); ALBUMIN 1.6 G/DL (3.4-5.0); ALBUMIN/GLOBULIN RATIO 0.4 (1.1-1.5); ALKALINE PHOSPHATASE 62 IU/L (46-116); ANION GAP 2 (8-16); ASPARTATE AMINO TRANSFERASE 16 U/L (10-37); BILIRUBIN,TOTAL 0.3 MG/DL (0.1-1.0); BLOOD UREA NITROGEN 15 MG/DL (7-18); BUN/CREATININE RATIO 41.7 (5.4-32.0); C-REACTIVE PROTEIN 22.35 MG/DL (0.0-0.5); CALCIUM 8.2 MG/DL (8.5-10.1); CHLORIDE 108 MMOL/L (99-107); CREATININE 0.36 MG/DL (0.60-1.10); GLUCOSE 159 MG/DL (70-104); MAGNESIUM 1.9 MG/DL (1.5-2.4); PHOSPHORUS 2.4 MG/DL (2.3-4.5); POTASSIUM 3.8 MMOL/L (3.5-5.1); SODIUM 143 MMOL/L (135-145); TOTAL CARBON DIOXIDE 32.7 MMOL/L (24-32); TOTAL PROTEIN 5.4 G/DL (6.4-8.2); eGFR > 90 ML/MIN
[2021-03-31] MEDS: dexmedetomidin/NS 400mcg/100ml 100 ML IV SCH ×2 (03:45→08:02)
[2021-03-31 04:12] LABS: ABG BASE EXCESS 6.6 mmol/L (-2.0-2.0); ABG HCO3 32.7 mmol/L (22.0-26.0); ABG OXYGEN SATURATION 90.7 % (94-97); ABG PCO2 (T) 55.8 mmHg (35.0-48.0); ABG PO2 (T) 64.3 mmHg (75.0-100.0); ALLEN'S TEST Modified; FCOHb 0.3 % (0.0-3.9); FMetHb 0.3 % (0.0-1.5); FO2Hb 90.2 % (94-97); PATIENT TEMPERATURE 37.2; PEEP 8 cm H2O; RESPIRATORY RATE 20 b/min; TIDAL VOLUME 425 mL; TOTAL HEMOGLOBIN 10.6 G/dl (14.0-18.0)
[2021-03-31] MEDS: FENTANYL-0.9 % NACL/PF 100 ML IV PRN ×2 (04:53→20:18)
--- NOTE | 2021-03-31 06:07 | NUR ---
Problems reprioritized. Patient report given, questions answered & plan of care reviewed with Gil CARRILLO.
--- NOTE | 2021-03-31 06:15 | NUR ---
Patient in room ICU 2042. I have received report from Lesly CARRILLO & Ruy RN (orient) and had the opportunity to ask questions and assume patient care.
[2021-03-31] MEDS: Dextrose 10%-water IV solution 1,000 ML IV SCH ×2 (06:40→20:18)
[2021-03-31] MEDS: enoxaparin 80mg/0.8ml syringe SUBCUT SCH ×2 (08:00→20:00)
[2021-03-31] MEDS: QUEtiapine 25mg tablet PO SCH ×2 (08:00→19:58)
[2021-03-31] MEDS: K and/or MAG REPLACEMENT MC SCH ×2 (08:00→19:58)
[2021-03-31] MEDS: famotidine 20mg tablet PO SCH ×2 (08:00→20:00)
[2021-03-31] MEDS: lactobacillus rhamnosus 10,000 MMU CELLS/CAPSULE OGT SCH (08:00)
[2021-03-31] MEDS: docusate sodium 100mg/10ml UD cup OGT SCH ×2 (08:00→19:58)
[2021-03-31] MEDS: cefepime 2g/NS 100ml ADVANTAGE 100 ML IV SCH ×2 (08:00→18:47)
[2021-03-31] MEDS ORDERED: K and/or MAG REPLACEMENT MC SCH (08:00)
[2021-03-31] MEDS: methylPREDNISolone sod succ/PF 40mg inj. IV SCH (08:00)
[2021-03-31] MEDS ORDERED: rocuronium 10mg/ml inj IV ONE (09:25)
[2021-03-31] MEDS: midazolam 100mg in NS 100ml 100 ML IV PRN ×2 (10:14→18:48)
--- NOTE | 2021-03-31 11:08 | NUR ---
Rounds MD requested a bolus of remaining NS - approx 375 cc which was given. Also US for pleural effusions. Increased sedation and pain meds. Precedex off. All for possible trach today.
[2021-03-31] MEDS ORDERED: midazolam 1 mg/ML 2ml injection IV ONE (12:05)
[2021-03-31] MEDS ORDERED: normal saline 500ml IV soln 500 ML IV ONE (12:05)
[2021-03-31 12:18] LABS: ABG BASE EXCESS 5.6 mmol/L (-2.0-2.0); ABG HCO3 31.7 mmol/L (22.0-26.0); ABG OXYGEN SATURATION 86.5 % (94-97); ALLEN'S TEST POSITIVE; FCOHb 0.9 % (0.0-3.9); FMetHb 0.4 % (0.0-1.5); FO2Hb 85.4 % (94-97); PATIENT TEMPERATURE 37.3; PEEP 8 cm H2O; RESPIRATORY RATE 20 b/min; TIDAL VOLUME 477 mL; TOTAL HEMOGLOBIN 11.9 G/dl (14.0-18.0)
[2021-03-31] MEDS ORDERED: metoprolol tartrate 1mg/ml inj IV ONE (12:25)
--- NOTE | 2021-03-31 13:25 | NUR ---
Note: Pts BP down. Trach/Peg pushed back until pt more stable. Precedex off per MD order. Shortly after, pt very hypertensive (180/100). Tried various boluses as well as increased sedation (versed) and pain/anxiety (fentanyl) with limited success. Metoprol ordered - 5 mg bolus for elevetated BP which helped some. Precedex restarted until propofol running. Propofol started, BP more stable and Precedex off.
[2021-03-31] MEDS ORDERED: VANCOMYCIN LEVEL IV ONE ×2 (13:30→21:30)
[2021-03-31] MEDS: propofol 1000mg/100ml bottle 100 ML IV SCH ×2 (13:40→23:54)
--- NOTE | 2021-03-31 17:00 | NUR ---
Trach/Peg note: Bedside trach with #8 Shiley placed under mod sedation using Rocuronium and Etomidate. RT x 2 assisted MD also; Pt tolerated procedure well. MD asked that the Kerlex roll placed under the Trach to keep at 90 degree angle. MD asked it remain like that to avoid the opening being widened due to pt being on steroids. Bedside PEG followed with GI RN and Tech to assist MD. Pt tolerated this as well. PEG is a 5 cm. MD dressed PEG and stated it could be used tomorrow.
--- NOTE | 2021-03-31 18:30 | NUR ---
Patient in room ICU 2042. I have received report from Gil CARIRLLO and had the opportunity to ask questions and assume patient care.
--- NOTE | 2021-03-31 18:32 | NUR ---
Problems reprioritized. Patient report given, questions answered & plan of care reviewed with Vivian CARRILLO.
[2021-03-31] MEDS: insulin regular, human U-100 3ml vial - multi-dose SQ SCH (20:50)
[2021-03-31] MEDS: insulin glargine (Lantus) pen - multi-dose SQ SCH (20:52)
[2021-03-31] MEDS ORDERED: famotidine/PF 10 mg/ml inj IV ONE (20:55)
[2021-03-31 22:02] LABS: VANCOMYCIN,TROUGH 15.1 UG/ML (6.0-14.0)
[2021-04-01] VITALS (24 sets, daily range): BP systolic 98–153; BP diastolic 56–91
[2021-04-01] MEDS: cefepime 2g/NS 100ml ADVANTAGE 100 ML IV SCH ×3 (01:18→16:21)
[2021-04-01] MEDS: FENTANYL-0.9 % NACL/PF 100 ML IV PRN ×5 (01:40→19:19)
[2021-04-01] MEDS: mineral oil/petrolatum ophthal oint EACHEYE SCH ×4 (02:01→20:22)
[2021-04-01 02:46] LABS: BASOPHILS % (AUTO) 0.1 % (0-1); EOSINOPHILS # (AUTO) 0.1 X10'3 (0-0.9); EOSINOPHILS % (AUTO) 1.6 % (0-6); HEMATOCRIT 28.7 % (42.0-52.0); HEMOGLOBIN 9.8 g/dl (14.0-17.9); LYMPHOCYTES # (AUTO) 1.2 X10'3 (1.1-4.8); LYMPHOCYTES % (AUTO) 18.4 % (21-51); MEAN CORPUSCULAR HEMOGLOBIN 32.6 PG (27.0-31.0); MEAN CORPUSCULAR HGB CONC 34.2 g/dL (33.0-36.5); MEAN CORPUSCULAR VOLUME 95.1 FL (78-98); MEAN PLATELET VOLUME 7.4 FL (7.4-10.4); MONOCYTES # (AUTO) 0.9 X10'3 (0-0.9); MONOCYTES % (AUTO) 13.7 % (2-12); NEUTROPHILS # (AUTO) 4.4 X10'3 (1.8-7.7); NEUTROPHILS % (AUTO) 66.2 % (42-75); PLATELET COUNT 258 X10'3 (140-440); RED BLOOD COUNT 3.01 X10'6 (4.70-6.10); RED CELL DISTRIBUTION WIDTH 16.1 % (11.5-14.5); WHITE BLOOD COUNT 6.6 X10'3 (4.5-11.0)
[2021-04-01 03:03] LABS: ALANINE AMINOTRANSFERASE 41 U/L (12-78); ALBUMIN 1.7 G/DL (3.4-5.0); ALBUMIN/GLOBULIN RATIO 0.4 (1.1-1.5); ALKALINE PHOSPHATASE 68 IU/L (46-116); ANION GAP -1 (8-16); ASPARTATE AMINO TRANSFERASE 13 U/L (10-37); BILIRUBIN,TOTAL 0.2 MG/DL (0.1-1.0); BLOOD UREA NITROGEN 7 MG/DL (7-18); BUN/CREATININE RATIO 21.2 (5.4-32.0); C-REACTIVE PROTEIN 12.32 MG/DL (0.0-0.5); CALCIUM 8.4 MG/DL (8.5-10.1); CHLORIDE 108 MMOL/L (99-107); CREATININE 0.33 MG/DL (0.60-1.10); GLUCOSE 117 MG/DL (70-104); MAGNESIUM 1.9 MG/DL (1.5-2.4); PHOSPHORUS 3.1 MG/DL (2.3-4.5); SODIUM 147 MMOL/L (135-145); TOTAL CARBON DIOXIDE 39.6 MMOL/L (24-32); TOTAL PROTEIN 5.5 G/DL (6.4-8.2); TRIGLYCERIDES 100 MG/DL (20-135); eGFR > 90 ML/MIN
[2021-04-01 03:55] LABS: ABG HCO3 39.9 mmol/L (22.0-26.0); ABG OXYGEN SATURATION 96.1 % (94-97); ABG PCO2 (T) 83.7 mmHg (35.0-48.0); ABG PO2 (T) 87.2 mmHg (75.0-100.0); ALLEN'S TEST POSITIVE; FCOHb 0.2 % (0.0-3.9); FMetHb 0.4 % (0.0-1.5); FO2Hb 95.5 % (94-97); PATIENT TEMPERATURE 37.5; PEEP 10 cm H2O; RESPIRATORY RATE 20 b/min; TOTAL HEMOGLOBIN 10.9 G/dl (14.0-18.0)
[2021-04-01 05:37] LABS: ABG BASE EXCESS 13.2 mmol/L (-2.0-2.0); ABG HCO3 42.9 mmol/L (22.0-26.0); ABG OXYGEN SATURATION 95.5 % (94-97); ABG PCO2 (T) 91.4 mmHg (35.0-48.0); ABG PO2 (T) 82.6 mmHg (75.0-100.0); ALLEN'S TEST POSITIVE; FCOHb 0.1 % (0.0-3.9); FMetHb 0.6 % (0.0-1.5); FO2Hb 94.8 % (94-97); PATIENT TEMPERATURE 37.3; PEEP 10 cm H2O; RESPIRATORY RATE 25 b/min; TOTAL HEMOGLOBIN 11.1 G/dl (14.0-18.0)
--- NOTE | 2021-04-01 06:33 | NUR ---
Problems reprioritized. Patient report given, questions answered & plan of care reviewed with Seven CARRILLO.
[2021-04-01] MEDS: K and/or MAG REPLACEMENT MC SCH ×2 (07:48→20:00)
[2021-04-01 08:02] LABS: ABG BASE EXCESS 14.2 mmol/L (-2.0-2.0); ABG HCO3 44.2 mmol/L (22.0-26.0); ABG OXYGEN SATURATION 91.7 % (94-97); ABG PCO2 (T) 94.2 mmHg (35.0-48.0); ABG PO2 (T) 62.4 mmHg (75.0-100.0); ALLEN'S TEST POSITIVE; FCOHb 0.3 % (0.0-3.9); FMetHb 0.6 % (0.0-1.5); FO2Hb 90.9 % (94-97); PEEP 10 cm H2O; RESPIRATORY RATE 25 b/min; TOTAL HEMOGLOBIN 11.1 G/dl (14.0-18.0)
[2021-04-01] MEDS: methylPREDNISolone sod succ/PF 40mg inj. IV SCH (08:18)
[2021-04-01] MEDS: famotidine 20mg tablet PO SCH ×2 (08:19→20:22)
[2021-04-01] MEDS: QUEtiapine 25mg tablet PO SCH ×2 (08:19→20:22)
[2021-04-01] MEDS: docusate sodium 100mg/10ml UD cup OGT SCH ×2 (08:19→20:21)
[2021-04-01] MEDS: MULTIVIT-MIN/FERROUS GLUCONATE 9 MG/15 ML LIQUID PEG SCH (08:19)
[2021-04-01] MEDS: cholecalciferol (vitamin D3) 1,000 unit (25mcg) tablet PEG SCH (08:19)
[2021-04-01] MEDS: zinc sulfate 220mg capsule PO SCH (08:19)
[2021-04-01] MEDS: enoxaparin 80mg/0.8ml syringe SUBCUT SCH ×2 (08:20→20:22)
[2021-04-01] MEDS: ipratropium/albuterol 3ml nebule NEB PRN (08:35)
[2021-04-01] MEDS: midazolam 100mg in NS 100ml 100 ML IV PRN (09:53)
--- NOTE | 2021-04-01 10:24 | NUR ---
Dr. Mattson notified and aware of ABG results and changes made to ventilator. No orders at this time to recheck until AM.
--- NOTE | 2021-04-01 11:09 | NUR ---
F/u 04/01: Pt remains intubated and sedated, with Propofol running at 3ml/hr providing 79kcals. Pt received PEG 03/31 and TF to restart today, currently using Vital HP at 25ml/hr and advancing to goal of 75ml/hr.Pt still receiving D5 at 40ml/hr providing LBM 03/31 per documentation. Will continue to monitor for TF tolerance and adjustment needs on vent. Recommendations: 1) Continuous TF via OGT using Vital High Protein at goal rate of 75 mL/hr to provide 1800 mL total volume/day, 1800 kcal, 158 g protein, and 1512 mL water. 2) Additional 100 mL water flush Q4H; monitor serum Na 3) IF out of Vital High Protein; substitute temporarily using Vital AF at current goal rate 4) Prealbumin q Monday/; daily scaled wt 5) Routine bowel care and opioid antagonist per Addendum: 04/01/21 at [address] Amended: Links added.
[2021-04-01] MEDS: insulin regular, human U-100 3ml vial - multi-dose SQ SCH ×2 (13:28→20:35)
--- NOTE | 2021-04-01 18:23 | NUR ---
Problems reprioritized. Patient report given, questions answered & plan of care reviewed with Vivian CARRILLO.
--- NOTE | 2021-04-01 18:25 | NUR ---
Patient in room ICU 2042. I have received report from Seven CARRILLO and had the opportunity to ask questions and assume patient care.
[2021-04-01] MEDS: insulin glargine (Lantus) pen - multi-dose SQ SCH (20:34)
[2021-04-02] VITALS (24 sets, daily range): BP systolic 90–168; BP diastolic 47–102
[2021-04-02] MEDS: FENTANYL-0.9 % NACL/PF 100 ML IV PRN ×6 (01:33→21:02)
[2021-04-02] MEDS: mineral oil/petrolatum ophthal oint EACHEYE SCH ×4 (01:34→20:02)
[2021-04-02] MEDS: cefepime 2g/NS 100ml ADVANTAGE 100 ML IV SCH ×3 (01:34→16:12)
[2021-04-02] MEDS: insulin regular, human U-100 3ml vial - multi-dose SQ SCH ×4 (02:16→20:10)
[2021-04-02 02:26] LABS: BASOPHILS % (AUTO) 0.1 % (0-1); EOSINOPHILS # (AUTO) 0.1 X10'3 (0-0.9); EOSINOPHILS % (AUTO) 1.5 % (0-6); HEMATOCRIT 26.1 % (42.0-52.0); LYMPHOCYTES # (AUTO) 1.1 X10'3 (1.1-4.8); LYMPHOCYTES % (AUTO) 19.8 % (21-51); MEAN CORPUSCULAR HEMOGLOBIN 32.7 PG (27.0-31.0); MEAN CORPUSCULAR HGB CONC 34.6 g/dL (33.0-36.5); MEAN CORPUSCULAR VOLUME 94.7 FL (78-98); MONOCYTES # (AUTO) 0.5 X10'3 (0-0.9); MONOCYTES % (AUTO) 9.9 % (2-12); NEUTROPHILS # (AUTO) 3.7 X10'3 (1.8-7.7); NEUTROPHILS % (AUTO) 68.7 % (42-75); PLATELET COUNT 236 X10'3 (140-440); RED BLOOD COUNT 2.75 X10'6 (4.70-6.10); WHITE BLOOD COUNT 5.3 X10'3 (4.5-11.0)
[2021-04-02 02:36] LABS: D-DIMER 1.43 MG/L FEU (0-0.50)
[2021-04-02 02:38] LABS: ALANINE AMINOTRANSFERASE 33 U/L (12-78); ALBUMIN 1.7 G/DL (3.4-5.0); ALBUMIN/GLOBULIN RATIO 0.4 (1.1-1.5); ALKALINE PHOSPHATASE 69 IU/L (46-116); ANION GAP -3 (8-16); ASPARTATE AMINO TRANSFERASE 14 U/L (10-37); BILIRUBIN,TOTAL 0.3 MG/DL (0.1-1.0); BLOOD UREA NITROGEN 8 MG/DL (7-18); BUN/CREATININE RATIO 24.2 (5.4-32.0); C-REACTIVE PROTEIN 11.33 MG/DL (0.0-0.5); CALCIUM 7.9 MG/DL (8.5-10.1); CHLORIDE 102 MMOL/L (99-107); CREATININE 0.33 MG/DL (0.60-1.10); GLUCOSE 173 MG/DL (70-104); MAGNESIUM 1.7 MG/DL (1.5-2.4); POTASSIUM 3.8 MMOL/L (3.5-5.1); SODIUM 142 MMOL/L (135-145); TOTAL PROTEIN 5.5 G/DL (6.4-8.2); eGFR > 90 ML/MIN
[2021-04-02 02:42] LABS: TOTAL CARBON DIOXIDE 43.4 MMOL/L (24-32)
[2021-04-02 02:57] LABS: ABG BASE EXCESS 17.7 mmol/L (-2.0-2.0); ABG HCO3 47.7 mmol/L (22.0-26.0); ABG OXYGEN SATURATION 92.1 % (94-97); ABG PCO2 (T) 103.3 mmHg (35.0-48.0); ABG PO2 (T) 68.3 mmHg (75.0-100.0); ALLEN'S TEST POSITIVE; FCOHb 0.8 % (0.0-3.9); FMetHb 0.3 % (0.0-1.5); FO2Hb 91.1 % (94-97); PATIENT TEMPERATURE 37.4; PEEP 10 cm H2O; RESPIRATORY RATE 28 b/min; TOTAL HEMOGLOBIN 9.9 G/dl (14.0-18.0)
[2021-04-02] MEDS: midazolam 100mg in NS 100ml 100 ML IV PRN ×2 (02:59→12:12)
--- NOTE | 2021-04-02 05:00 | NUR ---
Dr Costello notified of critical CO2 of 103.3 on ABG. Orders received to change vent settings to PRVC, TV- 425, RR-28, reduce PEEP from 10 to 5 and to recheck ABG. End Tidal CO2 instantly decreased. Now reading in the 70 where as previously 80's-90's.
--- NOTE | 2021-04-02 06:32 | NUR ---
Problems reprioritized. Patient report given, questions answered & plan of care reviewed with Seven CARRILLO.
[2021-04-02] MEDS: propofol 1000mg/100ml bottle 100 ML IV SCH (06:50)
[2021-04-02 07:46] LABS: ABG HCO3 44.7 mmol/L (22.0-26.0); ABG OXYGEN SATURATION 90.2 % (94-97); ABG PCO2 (T) 72.8 mmHg (35.0-48.0); ABG PO2 (T) 59.9 mmHg (75.0-100.0); ALLEN'S TEST POSITIVE; FCOHb 0.8 % (0.0-3.9); FMetHb 0.4 % (0.0-1.5); FO2Hb 89.1 % (94-97); PATIENT TEMPERATURE 38.3; PEEP 5 cm H2O; TOTAL HEMOGLOBIN 8.9 G/dl (14.0-18.0)
[2021-04-02] MEDS: K and/or MAG REPLACEMENT MC SCH ×2 (08:00→20:00)
[2021-04-02] MEDS ORDERED: etomidate 2mg/ml inj. ONE (08:00)
[2021-04-02] MEDS: docusate sodium 100mg/10ml UD cup OGT SCH ×2 (08:17→20:03)
[2021-04-02] MEDS: QUEtiapine 25mg tablet PO SCH ×2 (08:17→20:03)
[2021-04-02] MEDS: zinc sulfate 220mg capsule PO SCH (08:17)
[2021-04-02] MEDS: enoxaparin 80mg/0.8ml syringe SUBCUT SCH ×2 (08:17→20:04)
[2021-04-02] MEDS: MULTIVIT-MIN/FERROUS GLUCONATE 9 MG/15 ML LIQUID PEG SCH (08:17)
[2021-04-02] MEDS: famotidine 20mg tablet PO SCH ×2 (08:18→20:03)
[2021-04-02] MEDS: methylPREDNISolone sod succ/PF 40mg inj. IV SCH (08:18)
[2021-04-02] MEDS: cholecalciferol (vitamin D3) 1,000 unit (25mcg) tablet PEG SCH (08:18)
[2021-04-02] MEDS: Dextrose 10%-water IV solution 1,000 ML IV SCH (08:40)
[2021-04-02] MEDS ORDERED: lactulose 20gm/30ml cup OGT ONE (10:30)
--- NOTE | 2021-04-02 10:45 | NUR ---
AM Rounds: MD aware of elevated CO2 levels trending down. No new orders at this time. Patient remains on fentanyl, versed, and propofol; orders to try precedex to wean sedation and help patient's agitation with sedation vacation. (Patient becomes anxious, tachycardic in the 130s, tachypneic in the 30s, and desaturates off of sedation). MD aware of peak pressuring. MD aware of spike in temp; sputum sample sent.
[2021-04-02] MEDS ORDERED: dextrose 5%-1/2 normal saline 1,000 ML IV SCH (10:50)
[2021-04-02] MEDS ORDERED: dexmedetomidin/NS 400mcg/100ml 100 ML IV SCH (12:00)
[2021-04-02] MEDS: dexmedetomidine/D5W 100mL 100 ML IV SCH ×4 (12:26→23:25)
--- NOTE | 2021-04-02 18:08 | NUR ---
Problems reprioritized. Patient report given, questions answered & plan of care reviewed with Lakshmi CARRILLO.
[2021-04-02] MEDS: ipratropium/albuterol 3ml nebule NEB PRN (20:03)
[2021-04-02] MEDS: insulin glargine (Lantus) pen - multi-dose SQ SCH (20:12)
[2021-04-03] VITALS (23 sets, daily range): BP systolic 89–159; BP diastolic 45–104
[2021-04-03] MEDS: cefepime 2g/NS 100ml ADVANTAGE 100 ML IV SCH ×3 (00:16→16:29)
[2021-04-03] MEDS: FENTANYL-0.9 % NACL/PF 100 ML IV PRN ×5 (01:41→19:44)
[2021-04-03] MEDS: mineral oil/petrolatum ophthal oint EACHEYE SCH ×4 (02:45→19:54)
[2021-04-03] MEDS: insulin regular, human U-100 3ml vial - multi-dose SQ SCH ×2 (02:47→13:28)
[2021-04-03 03:31] LABS: D-DIMER 1.01 MG/L FEU (0-0.50)
[2021-04-03 03:39] LABS: ALANINE AMINOTRANSFERASE 24 U/L (12-78); ALBUMIN 1.4 G/DL (3.4-5.0); ALBUMIN/GLOBULIN RATIO 0.4 (1.1-1.5); ALKALINE PHOSPHATASE 66 IU/L (46-116); ANION GAP -6 (8-16); ASPARTATE AMINO TRANSFERASE 17 U/L (10-37); BILIRUBIN,TOTAL 0.3 MG/DL (0.1-1.0); BLOOD UREA NITROGEN 9 MG/DL (7-18); BUN/CREATININE RATIO 25.7 (5.4-32.0); CALCIUM 7.4 MG/DL (8.5-10.1); CHLORIDE 98 MMOL/L (99-107); CREATININE 0.35 MG/DL (0.60-1.10); GLUCOSE 159 MG/DL (70-104); MAGNESIUM 1.7 MG/DL (1.5-2.4); PHOSPHORUS 1.6 MG/DL (2.3-4.5); SODIUM 135 MMOL/L (135-145); TOTAL PROTEIN 4.6 G/DL (6.4-8.2); eGFR > 90 ML/MIN
[2021-04-03 03:41] LABS: ABG BASE EXCESS 22.9 mmol/L (-2.0-2.0); ABG HCO3 49.9 mmol/L (22.0-26.0); ABG OXYGEN SATURATION 89.5 % (94-97); ABG PCO2 (T) 71.9 mmHg (35.0-48.0); ABG PO2 (T) 55.6 mmHg (75.0-100.0); ALLEN'S TEST POSITIVE; FCOHb 0.2 % (0.0-3.9); FMetHb 0.3 % (0.0-1.5); FO2Hb 89.1 % (94-97); PATIENT TEMPERATURE 36.7; PEEP 5 cm H2O; RESPIRATORY RATE 28 b/min; TIDAL VOLUME 425 mL
[2021-04-03 03:47] LABS: BASOPHILS % (AUTO) 0.2 % (0-1); EOSINOPHILS # (AUTO) 0.1 X10'3 (0-0.9); EOSINOPHILS % (AUTO) 2.6 % (0-6); HEMOGLOBIN 7.2 g/dl (14.0-17.9); LYMPHOCYTES # (AUTO) 1.1 X10'3 (1.1-4.8); LYMPHOCYTES % (AUTO) 20.1 % (21-51); MEAN CORPUSCULAR HEMOGLOBIN 32.5 PG (27.0-31.0); MEAN CORPUSCULAR HGB CONC 34.1 g/dL (33.0-36.5); MEAN CORPUSCULAR VOLUME 95.3 FL (78-98); MEAN PLATELET VOLUME 8.2 FL (7.4-10.4); MONOCYTES # (AUTO) 0.5 X10'3 (0-0.9); MONOCYTES % (AUTO) 9.6 % (2-12); NEUTROPHILS # (AUTO) 3.6 X10'3 (1.8-7.7); NEUTROPHILS % (AUTO) 67.5 % (42-75); PLATELET COUNT 241 X10'3 (140-440); RED BLOOD COUNT 2.22 X10'6 (4.70-6.10); RED CELL DISTRIBUTION WIDTH 15.9 % (11.5-14.5); WHITE BLOOD COUNT 5.3 X10'3 (4.5-11.0)
[2021-04-03 03:50] LABS: POTASSIUM 2.7 MMOL/L (3.5-5.1); TOTAL CARBON DIOXIDE 43.3 MMOL/L (24-32)
[2021-04-03 03:54] LABS: HEMATOCRIT 21.2 % (42.0-52.0)
[2021-04-03] MEDS: dexmedetomidine/D5W 100mL 100 ML IV SCH (04:15)
[2021-04-03] MEDS: midazolam 100mg in NS 100ml 100 ML IV PRN ×3 (05:21→23:07)
--- NOTE | 2021-04-03 06:27 | NUR ---
Problems reprioritized. Patient report given, questions answered & plan of care reviewed with TREMAINE CARRILLO.
[2021-04-03] MEDS ORDERED: sodium phosphate inj. 30 MMOL in dextrose 5%-water 250 ML IV PRN (07:35)
[2021-04-03] MEDS ORDERED: sodium phosphate inj. 15 MMOL in dextrose 5%-water 250 ML IV PRN (07:35)
--- NOTE | 2021-04-03 07:45 | NUR ---
Dr. Otoole rounding on patient; aware of ABG results and peak pressuring. Unable to wean patient off of sedation or vent. O2 requirements increasing. MD would like to try APRV mode, but needs patient more awake. Orders to decrease Fentanyl and Versed. MD aware patient becomes tachycardic in the 110s, tachypneic in the 30s, desaturates, and peak pressures more. MD also aware of critical K of 2.7 and decreased Phos level; replace per policy.
[2021-04-03] MEDS: dextrose 50%-water 50ml dispensing syringe IV PRN (07:50)
[2021-04-03] MEDS: ipratropium/albuterol 3ml nebule NEB PRN (07:51)
[2021-04-03] MEDS: cholecalciferol (vitamin D3) 1,000 unit (25mcg) tablet PEG SCH (07:55)
[2021-04-03] MEDS: docusate sodium 100mg/10ml UD cup OGT SCH ×2 (07:55→19:39)
[2021-04-03] MEDS: methylPREDNISolone sod succ/PF 40mg inj. IV SCH (07:55)
[2021-04-03] MEDS: MULTIVIT-MIN/FERROUS GLUCONATE 9 MG/15 ML LIQUID PEG SCH (07:55)
[2021-04-03] MEDS: potassium Cl 40MEQ/250ML bag 270 ML IV PRN ×2 (07:56→10:51)
[2021-04-03] MEDS: famotidine 20mg tablet PO SCH ×2 (07:56→19:40)
[2021-04-03] MEDS: zinc sulfate 220mg capsule PO SCH (07:56)
[2021-04-03] MEDS: enoxaparin 80mg/0.8ml syringe SUBCUT SCH ×2 (07:56→19:40)
[2021-04-03] MEDS: K and/or MAG REPLACEMENT MC SCH ×2 (08:00→19:55)
[2021-04-03] MEDS: QUEtiapine 25mg tablet PO SCH (08:00)
[2021-04-03] MEDS: Neutra Phos packet PO PRN ×2 (08:04→13:46)
--- NOTE | 2021-04-03 08:15 | NUR ---
Dr. Otoole aware of hgb 7.2 and hct 21.2; no new orders at this time; will recheck in the AM per
--- NOTE | 2021-04-03 09:15 | NUR ---
Patient unable to tolerate sedation vacation as evidenced by increased peak pressuring, decreased saturations, tachypnea in the 30s, and tachycardia in the 110s/120s, and SBP in the 180s. APRV not tolerated. Orders to restart sedation, stop precedex and restart propofol.
[2021-04-03] MEDS: propofol 1000mg/100ml bottle 100 ML IV SCH ×3 (09:18→15:20)
[2021-04-03] MEDS: furosemide 40mg/4ml inj IV SCH ×2 (09:19→19:39)
[2021-04-03] MEDS: Dextrose 10%-water IV solution 1,000 ML IV SCH (09:40)
--- NOTE | 2021-04-03 11:03 | NUR ---
Patient's o2 saturations decreasing to 70s/80s; RT paged as well as MD. RT mannually ventilated patient with ambu with o2 sats to 88%. PEEP increased to 14 with no significant improvement. No other orders at this time.
--- NOTE | 2021-04-03 17:21 | NUR ---
Dr. Otoole rounding and aware patient continues to saturate between 87-89. No new orders at this time.
--- NOTE | 2021-04-03 18:00 | NUR ---
Patient in room ICU 2042. I have received report from jas adams and had the opportunity to ask questions and assume patient care.
--- NOTE | 2021-04-03 18:47 | NUR ---
Problems reprioritized. Patient report given, questions answered & plan of care reviewed with Irma CARRILLO.
[2021-04-03 19:43] LABS: ABG BASE EXCESS 21.8 mmol/L (-2.0-2.0); ABG HCO3 52.9 mmol/L (22.0-26.0); ABG OXYGEN SATURATION 77.1 % (94-97); ABG PCO2 (T) 120.7 mmHg (35.0-48.0); ALLEN'S TEST POSITIVE; FCOHb 0.5 % (0.0-3.9); FMetHb 0.4 % (0.0-1.5); FO2Hb 76.4 % (94-97); PEEP 10 cm H2O; RESPIRATORY RATE 28 b/min; TIDAL VOLUME 425 mL; TOTAL HEMOGLOBIN 9.5 G/dl (14.0-18.0)
--- NOTE | 2021-04-03 19:47 | NUR ---
held lasix due to low bp 100/61mmHg. MD Ankur begum.
--- NOTE | 2021-04-03 19:52 | NUR ---
Spoke to Dr. Valencia regarding ABG results and low SPO2, ok to keep sats in the 70's at this time as there is not much more that can be done in regards to ventilator support.
--- NOTE | 2021-04-03 19:58 | NUR ---
family notified in regARDS TO PATIENTS CONDITION DESATURATION AND DECREASONG BLOOD PRESSURE. LALO HAGEN
[2021-04-03] MEDS: insulin glargine (Lantus) pen - multi-dose SQ SCH (21:20)
[2021-04-04] VITALS (24 sets, daily range): BP systolic 96–121; BP diastolic 53–81
[2021-04-04] MEDS: propofol 1000mg/100ml bottle 100 ML IV SCH ×3 (02:08→16:58)
[2021-04-04 02:33] LABS: ABG BASE EXCESS 19.6 mmol/L (-2.0-2.0); ABG HCO3 53.6 mmol/L (22.0-26.0); ABG OXYGEN SATURATION 81.6 % (94-97); ABG PCO2 (T) > 150.0 mmHg (35.0-48.0); ABG PO2 (T) 51.5 mmHg (75.0-100.0); ALLEN'S TEST POSITIVE; FCOHb 0.9 % (0.0-3.9); FMetHb 0.3 % (0.0-1.5); FO2Hb 80.6 % (94-97); PATIENT TEMPERATURE 36.3; PEEP 10 cm H2O; RESPIRATORY RATE 28 b/min; TIDAL VOLUME 425 mL; TOTAL HEMOGLOBIN 9.9 G/dl (14.0-18.0)
[2021-04-04] MEDS: insulin regular, human U-100 3ml vial - multi-dose SQ SCH ×3 (03:34→15:19)
[2021-04-04] MEDS: mineral oil/petrolatum ophthal oint EACHEYE SCH ×4 (03:35→20:33)
[2021-04-04 03:49] LABS: D-DIMER 1.23 MG/L FEU (0-0.50)
[2021-04-04 03:51] LABS: ALANINE AMINOTRANSFERASE 43 U/L (12-78); ALBUMIN 1.7 G/DL (3.4-5.0); ALBUMIN/GLOBULIN RATIO 0.4 (1.1-1.5); ALKALINE PHOSPHATASE 181 IU/L (46-116); ASPARTATE AMINO TRANSFERASE 30 U/L (10-37); BILIRUBIN,TOTAL 0.4 MG/DL (0.1-1.0); BLOOD UREA NITROGEN 18 MG/DL (7-18); BUN/CREATININE RATIO 28.6 (5.4-32.0); C-REACTIVE PROTEIN 19.96 MG/DL (0.0-0.5); CALCIUM 8.4 MG/DL (8.5-10.1); CHLORIDE 102 MMOL/L (99-107); CREATININE 0.63 MG/DL (0.60-1.10); GLUCOSE 225 MG/DL (70-104); MAGNESIUM 2.3 MG/DL (1.5-2.4); PHOSPHORUS 6.3 MG/DL (2.3-4.5); SODIUM 145 MMOL/L (135-145); TOTAL PROTEIN 6.3 G/DL (6.4-8.2); eGFR > 90 ML/MIN
[2021-04-04 03:52] LABS: ANION GAP -2 (8-16)
[2021-04-04 03:56] LABS: BASOPHILS % (AUTO) 0.2 % (0-1); EOSINOPHILS # (AUTO) 0.1 X10'3 (0-0.9); EOSINOPHILS % (AUTO) 0.8 % (0-6); HEMATOCRIT 27.3 % (42.0-52.0); LYMPHOCYTES % (AUTO) 11.4 % (21-51); MEAN CORPUSCULAR HEMOGLOBIN 32.4 PG (27.0-31.0); MEAN PLATELET VOLUME 7.8 FL (7.4-10.4); MONOCYTES % (AUTO) 10.9 % (2-12); NEUTROPHILS % (AUTO) 76.7 % (42-75); PLATELET COUNT 310 X10'3 (140-440); RED BLOOD COUNT 2.79 X10'6 (4.70-6.10); RED CELL DISTRIBUTION WIDTH 16.3 % (11.5-14.5); TOTAL CARBON DIOXIDE 44.5 MMOL/L (24-32); WHITE BLOOD COUNT 9.2 X10'3 (4.5-11.0)
[2021-04-04] MEDS: FENTANYL-0.9 % NACL/PF 100 ML IV PRN ×4 (04:25→22:41)
[2021-04-04] MEDS: enoxaparin 80mg/0.8ml syringe SUBCUT SCH ×2 (07:25→20:34)
[2021-04-04] MEDS: cefepime 2g/NS 100ml ADVANTAGE 100 ML IV SCH ×3 (07:26→15:55)
[2021-04-04] MEDS: MULTIVIT-MIN/FERROUS GLUCONATE 9 MG/15 ML LIQUID PEG SCH (07:26)
[2021-04-04] MEDS: famotidine 20mg tablet PO SCH ×2 (07:26→20:33)
[2021-04-04] MEDS: cholecalciferol (vitamin D3) 1,000 unit (25mcg) tablet PEG SCH (07:26)
[2021-04-04] MEDS: methylPREDNISolone sod succ/PF 40mg inj. IV SCH ×3 (07:26→20:34)
[2021-04-04] MEDS: furosemide 40mg/4ml inj IV SCH ×2 (07:26→20:00)
[2021-04-04] MEDS: zinc sulfate 220mg capsule PO SCH (07:26)
[2021-04-04] MEDS: docusate sodium 100mg/10ml UD cup OGT SCH ×2 (07:26→20:34)
[2021-04-04] MEDS: K and/or MAG REPLACEMENT MC SCH ×2 (08:00→20:00)
[2021-04-04 11:46] LABS: ABG BASE EXCESS 13.6 mmol/L (-2.0-2.0); ABG HCO3 47.9 mmol/L (22.0-26.0); ABG OXYGEN SATURATION 87.3 % (94-97); ABG PCO2 (T) > 150.0 mmHg (35.0-48.0); ABG PO2 (T) 56.1 mmHg (75.0-100.0); ALLEN'S TEST POSITIVE; FCOHb 0.5 % (0.0-3.9); FMetHb 0.4 % (0.0-1.5); FO2Hb 86.5 % (94-97); PEEP 10 cm H2O; RESPIRATORY RATE 30 b/min; TIDAL VOLUME 425 mL; TOTAL HEMOGLOBIN 10.1 G/dl (14.0-18.0)
[2021-04-04] MEDS ORDERED: sodium bicarbonate (8.4%) 1 mEq/ml syringe IV ONE (12:30)
[2021-04-04] MEDS: micafungin inj 100 MG in normal saline 100ml IV soln 100 ML IV SCH (12:36)
[2021-04-04] MEDS: Dextrose 10%-water IV solution 1,000 ML IV SCH (12:58)
[2021-04-04] MEDS: dexmedetomidine/D5W 100mL 100 ML IV SCH (14:09)
[2021-04-04] MEDS ORDERED: furosemide inj 100 MG in normal saline 100ml IV soln 90 ML IV SCH (16:20)
[2021-04-04 16:49] LABS: ABG BASE EXCESS 17.9 mmol/L (-2.0-2.0); ABG HCO3 50.3 mmol/L (22.0-26.0); ABG OXYGEN SATURATION 90.4 % (94-97); ABG PCO2 (T) 137.6 mmHg (35.0-48.0); ABG PO2 (T) 60.1 mmHg (75.0-100.0); ALLEN'S TEST POSITIVE; FCOHb 0.3 % (0.0-3.9); FMetHb 0.5 % (0.0-1.5); FO2Hb 89.7 % (94-97); PATIENT TEMPERATURE 36.1; PEEP 10 cm H2O; RESPIRATORY RATE 30 b/min; TIDAL VOLUME 425 mL; TOTAL HEMOGLOBIN 9.2 G/dl (14.0-18.0)
[2021-04-04] MEDS: midazolam 100mg in NS 100ml 100 ML IV PRN (18:17)
[2021-04-04] MEDS ORDERED: furosemide 40mg/4ml inj IV ONE (20:00)
[2021-04-04] MEDS: insulin glargine (Lantus) pen - multi-dose SQ SCH (20:36)
[2021-04-04 23:06] LABS: ABG BASE EXCESS 13.4 mmol/L (-2.0-2.0); ABG HCO3 46.7 mmol/L (22.0-26.0); ABG OXYGEN SATURATION 79.5 % (94-97); ABG PCO2 (T) 146.1 mmHg (35.0-48.0); ABG PO2 (T) 47.8 mmHg (75.0-100.0); ALLEN'S TEST POSITIVE; FCOHb 0.2 % (0.0-3.9); FMetHb 0.4 % (0.0-1.5); PATIENT TEMPERATURE 36.2; PEEP 10 cm H2O; RESPIRATORY RATE 30 b/min; TIDAL VOLUME 425 mL; TOTAL HEMOGLOBIN 9.8 G/dl (14.0-18.0)
[2021-04-05] VITALS (24 sets, daily range): BP systolic 98–137; BP diastolic 50–74
[2021-04-05] MEDS ORDERED: atropine 0.1mg/ml 10ml syringe ONE (00:39)
[2021-04-05] MEDS: cefepime 2g/NS 100ml ADVANTAGE 100 ML IV SCH ×2 (00:44→08:01)
[2021-04-05] MEDS: propofol 1000mg/100ml bottle 100 ML IV SCH ×3 (01:41→20:12)
[2021-04-05] MEDS: mineral oil/petrolatum ophthal oint EACHEYE SCH ×4 (01:41→20:08)
[2021-04-05] MEDS: dexmedetomidine/D5W 100mL 100 ML IV SCH ×2 (02:32→15:11)
[2021-04-05] MEDS: insulin regular, human U-100 3ml vial - multi-dose SQ SCH ×3 (02:42→20:21)
[2021-04-05 03:22] LABS: ABG BASE EXCESS 13.6 mmol/L (-2.0-2.0); ABG HCO3 46.1 mmol/L (22.0-26.0); ABG OXYGEN SATURATION 84.5 % (94-97); ABG PCO2 (T) 138.2 mmHg (35.0-48.0); ABG PO2 (T) 54.3 mmHg (75.0-100.0); ALLEN'S TEST POSITIVE; FCOHb 0.5 % (0.0-3.9); FMetHb 0.4 % (0.0-1.5); FO2Hb 83.7 % (94-97); PATIENT TEMPERATURE 36.3; PEEP 10 cm H2O; RESPIRATORY RATE 34 b/min; TIDAL VOLUME 425 mL; TOTAL HEMOGLOBIN 9.3 G/dl (14.0-18.0)
[2021-04-05 03:25] LABS: BASOPHILS % (AUTO) 0.1 % (0-1); EOSINOPHILS % (AUTO) 0.1 % (0-6); HEMATOCRIT 25.1 % (42.0-52.0); HEMOGLOBIN 8.3 g/dl (14.0-17.9); LYMPHOCYTES # (AUTO) 0.4 X10'3 (1.1-4.8); LYMPHOCYTES % (AUTO) 4.8 % (21-51); MEAN CORPUSCULAR HEMOGLOBIN 32.5 PG (27.0-31.0); MEAN CORPUSCULAR VOLUME 98.6 FL (78-98); MEAN PLATELET VOLUME 8.1 FL (7.4-10.4); MONOCYTES # (AUTO) 0.5 X10'3 (0-0.9); NEUTROPHILS # (AUTO) 7.3 X10'3 (1.8-7.7); PLATELET COUNT 274 X10'3 (140-440); RED BLOOD COUNT 2.54 X10'6 (4.70-6.10); RED CELL DISTRIBUTION WIDTH 16.3 % (11.5-14.5); WHITE BLOOD COUNT 8.2 X10'3 (4.5-11.0)
[2021-04-05 03:37] LABS: D-DIMER 0.77 MG/L FEU (0-0.50)
[2021-04-05] MEDS: FENTANYL-0.9 % NACL/PF 100 ML IV PRN ×2 (03:49→20:11)
[2021-04-05 03:51] LABS: ALANINE AMINOTRANSFERASE 98 U/L (12-78); ALBUMIN 1.6 G/DL (3.4-5.0); ALBUMIN/GLOBULIN RATIO 0.4 (1.1-1.5); ALKALINE PHOSPHATASE 177 IU/L (46-116); ANION GAP 1 (8-16); ASPARTATE AMINO TRANSFERASE 47 U/L (10-37); BILIRUBIN,TOTAL 0.8 MG/DL (0.1-1.0); BLOOD UREA NITROGEN 42 MG/DL (7-18); BUN/CREATININE RATIO 24.1 (5.4-32.0); CHLORIDE 101 MMOL/L (99-107); CREATININE 1.74 MG/DL (0.60-1.10); GLUCOSE 260 MG/DL (70-104); MAGNESIUM 2.2 MG/DL (1.5-2.4); PHOSPHORUS 7.5 MG/DL (2.3-4.5); SODIUM 142 MMOL/L (135-145); TOTAL PROTEIN 6.1 G/DL (6.4-8.2); eGFR 42 ML/MIN
[2021-04-05 04:10] LABS: NUCLEATED RED BLOOD CELLS 1 /100WBC (0-0); TOTAL CELLS COUNTED 100
[2021-04-05 04:11] LABS: ANISOCYTOSIS 1+; PLATELET ESTIMATE NORMAL
[2021-04-05 04:14] LABS: POLYCHROMASIA 1+
[2021-04-05 04:15] LABS: STOMATOCYTES 1+
[2021-04-05] MEDS: midazolam 100mg in NS 100ml 100 ML IV PRN ×2 (05:13→15:49)
[2021-04-05] MEDS: cholecalciferol (vitamin D3) 1,000 unit (25mcg) tablet PEG SCH (08:00)
[2021-04-05] MEDS: famotidine 20mg tablet PO SCH ×2 (08:00→20:08)
[2021-04-05] MEDS: furosemide 40mg/4ml inj IV SCH (08:00)
[2021-04-05] MEDS: MULTIVIT-MIN/FERROUS GLUCONATE 9 MG/15 ML LIQUID PEG SCH (08:00)
[2021-04-05] MEDS: docusate sodium 100mg/10ml UD cup OGT SCH ×2 (08:00→20:08)
[2021-04-05] MEDS: zinc sulfate 220mg capsule PO SCH (08:00)
[2021-04-05] MEDS: K and/or MAG REPLACEMENT MC SCH ×2 (08:00→20:00)
[2021-04-05] MEDS: methylPREDNISolone sod succ/PF 40mg inj. IV SCH ×2 (08:00→20:08)
[2021-04-05] MEDS: enoxaparin 80mg/0.8ml syringe SUBCUT SCH ×2 (08:02→20:08)
[2021-04-05] MEDS: micafungin inj 100 MG in normal saline 100ml IV soln 100 ML IV SCH (08:58)
[2021-04-05] MEDS ORDERED: VANCOMYCIN LEVEL IV ONE (10:00)
--- NOTE | 2021-04-05 11:35 | NUR ---
F/u 04/05: Pt remains intubated and Propofol is currently off, was previously 22.23ml/hr 04/04. TF continues to run at goal of Vital HP at 75ml/hr.Pt still receiving D5 at 40ml/hr providing 163kcals LBM 04/02 per documentation. Will continue to monitor for TF tolerance and adjustment needs on vent. Recommendations: 1) Continuous TF via OGT using Vital High Protein at goal rate of 75 mL/hr to provide 1800 mL total volume/day, 1800 kcal, 158 g protein, and 1512 mL water. 2) Additional 100 mL water flush Q4H; monitor serum Na 3) IF out of Vital High Protein; substitute temporarily using Vital AF at current goal rate 4) Prealbumin q Monday/; daily scaled wt 5) Routine bowel care and opioid antagonist per MD Addendum: 04/05/21 at [address] Amended: Links added.
[2021-04-05] MEDS: Dextrose 10%-water IV solution 1,000 ML IV SCH (11:40)
[2021-04-05 12:23] LABS: POTASSIUM 5.4 MMOL/L (3.5-5.1)
[2021-04-05 14:54] LABS: VANCOMYCIN,RANDOM 82.4 UG/ML
--- NOTE | 2021-04-05 18:55 | NUR ---
i have received report and assumed care of pt, Pt resting in bed, ventilator in place, tube feedings in place for nutritional support. Pt does not wake up or follow any commands this is unchanged, fentanyl in place for pain control,
[2021-04-05] MEDS: insulin glargine (Lantus) pen - multi-dose SQ SCH (20:19)
[2021-04-06] VITALS (22 sets, daily range): BP systolic 107–131; BP diastolic 49–78
[2021-04-06] MEDS: midazolam 100mg in NS 100ml 100 ML IV PRN ×3 (01:36→16:53)
[2021-04-06] MEDS: mineral oil/petrolatum ophthal oint EACHEYE SCH ×4 (02:00→20:38)
[2021-04-06 02:53] LABS: ABG BASE EXCESS 8.6 mmol/L (-2.0-2.0); ABG HCO3 38.2 mmol/L (22.0-26.0); ABG OXYGEN SATURATION 90.3 % (94-97); ABG PCO2 (T) 89.1 mmHg (35.0-48.0); ABG PO2 (T) 61.8 mmHg (75.0-100.0); ALLEN'S TEST POSITIVE; FCOHb 0.1 % (0.0-3.9); FMetHb 0.3 % (0.0-1.5); FO2Hb 89.9 % (94-97); PATIENT TEMPERATURE 36.2; PEEP 10 cm H2O; RESPIRATORY RATE 34 b/min; TIDAL VOLUME 425 mL; TOTAL HEMOGLOBIN 9.4 G/dl (14.0-18.0)
[2021-04-06 03:17] LABS: BASOPHILS % (AUTO) 0.3 % (0-1); EOSINOPHILS # (AUTO) 0.1 X10'3 (0-0.9); EOSINOPHILS % (AUTO) 0.8 % (0-6); HEMATOCRIT 22.3 % (42.0-52.0); HEMOGLOBIN 7.5 g/dl (14.0-17.9); LYMPHOCYTES # (AUTO) 1.6 X10'3 (1.1-4.8); LYMPHOCYTES % (AUTO) 14.4 % (21-51); MEAN CORPUSCULAR HEMOGLOBIN 32.2 PG (27.0-31.0); MEAN CORPUSCULAR HGB CONC 33.8 g/dL (33.0-36.5); MEAN CORPUSCULAR VOLUME 95.1 FL (78-98); MEAN PLATELET VOLUME 7.6 FL (7.4-10.4); MONOCYTES # (AUTO) 0.9 X10'3 (0-0.9); MONOCYTES % (AUTO) 7.9 % (2-12); NEUTROPHILS # (AUTO) 8.5 X10'3 (1.8-7.7); NEUTROPHILS % (AUTO) 76.6 % (42-75); PLATELET COUNT 291 X10'3 (140-440); RED BLOOD COUNT 2.34 X10'6 (4.70-6.10); RED CELL DISTRIBUTION WIDTH 16.8 % (11.5-14.5)
[2021-04-06] MEDS: dexmedetomidine/D5W 100mL 100 ML IV SCH ×2 (03:42→16:13)
[2021-04-06 03:56] LABS: ALANINE AMINOTRANSFERASE 81 U/L (12-78); ALBUMIN 1.6 G/DL (3.4-5.0); ALBUMIN/GLOBULIN RATIO 0.4 (1.1-1.5); ALKALINE PHOSPHATASE 147 IU/L (46-116); ANION GAP 5 (8-16); ASPARTATE AMINO TRANSFERASE 35 U/L (10-37); BILIRUBIN,TOTAL 0.5 MG/DL (0.1-1.0); BLOOD UREA NITROGEN 65 MG/DL (7-18); CHLORIDE 96 MMOL/L (99-107); CREATININE 2.71 MG/DL (0.60-1.10); GLUCOSE 145 MG/DL (70-104); POTASSIUM 5.1 MMOL/L (3.5-5.1); SODIUM 136 MMOL/L (135-145); TOTAL CARBON DIOXIDE 35.5 MMOL/L (24-32); TOTAL PROTEIN 5.8 G/DL (6.4-8.2); eGFR 25 ML/MIN
[2021-04-06] MEDS: propofol 1000mg/100ml bottle 100 ML IV SCH ×4 (04:53→23:00)
[2021-04-06] MEDS: FENTANYL-0.9 % NACL/PF 100 ML IV PRN ×3 (04:53→20:02)
[2021-04-06 06:01] LABS: NUCLEATED RED BLOOD CELLS 5 /100WBC (0-0); TOTAL CELLS COUNTED 100
[2021-04-06 06:02] LABS: ANISOCYTOSIS 1+; PLATELET ESTIMATE NORMAL; POLYCHROMASIA 1+
--- NOTE | 2021-04-06 06:30 | NUR ---
Received report from Wilma Fontenot RN
[2021-04-06] MEDS: ipratropium/albuterol 3ml nebule NEB PRN (07:45)
[2021-04-06] MEDS: K and/or MAG REPLACEMENT MC SCH ×2 (08:00→20:00)
[2021-04-06] MEDS: micafungin inj 100 MG in normal saline 100ml IV soln 100 ML IV SCH (08:58)
[2021-04-06] MEDS: enoxaparin 80mg/0.8ml syringe SUBCUT SCH ×2 (08:59→20:37)
[2021-04-06] MEDS: famotidine 20mg tablet PO SCH ×2 (08:59→20:37)
[2021-04-06] MEDS: MULTIVIT-MIN/FERROUS GLUCONATE 9 MG/15 ML LIQUID PEG SCH (08:59)
[2021-04-06] MEDS: zinc sulfate 220mg capsule PO SCH (08:59)
[2021-04-06] MEDS: methylPREDNISolone sod succ/PF 40mg inj. IV SCH ×2 (08:59→20:37)
[2021-04-06] MEDS: cholecalciferol (vitamin D3) 1,000 unit (25mcg) tablet PEG SCH (08:59)
[2021-04-06] MEDS: docusate sodium 100mg/10ml UD cup OGT SCH ×2 (08:59→20:36)
[2021-04-06] MEDS: insulin regular, human U-100 3ml vial - multi-dose SQ SCH ×3 (09:03→21:21)
[2021-04-06] MEDS: Dextrose 10%-water IV solution 1,000 ML IV SCH (12:40)
[2021-04-06] MEDS: insulin glargine (Lantus) pen - multi-dose SQ SCH (21:26)
[2021-04-07] VITALS (14 sets, daily range): BP systolic 0–134; BP diastolic 0–68
[2021-04-07] MEDS: FENTANYL-0.9 % NACL/PF 100 ML IV PRN ×3 (00:11→11:27)
[2021-04-07] MEDS: midazolam 100mg in NS 100ml 100 ML IV PRN ×2 (01:51→09:10)
[2021-04-07] MEDS: mineral oil/petrolatum ophthal oint EACHEYE SCH ×2 (02:25→07:43)
[2021-04-07] MEDS: insulin regular, human U-100 3ml vial - multi-dose SQ SCH ×2 (02:26→08:03)
[2021-04-07 02:35] LABS: ABG BASE EXCESS 4.7 mmol/L (-2.0-2.0); ABG OXYGEN SATURATION 83.8 % (94-97); ABG PCO2 (T) 75.4 mmHg (35.0-48.0); ABG PO2 (T) 58.8 mmHg (75.0-100.0); ALLEN'S TEST POSITIVE; FCOHb 0.1 % (0.0-3.9); FMetHb 0.4 % (0.0-1.5); FO2Hb 83.4 % (94-97); PATIENT TEMPERATURE 36.9; PEEP 10 cm H2O; RESPIRATORY RATE 34 b/min; TIDAL VOLUME 425 mL; TOTAL HEMOGLOBIN 8.5 G/dl (14.0-18.0)
[2021-04-07 03:11] LABS: D-DIMER 0.87 MG/L FEU (0-0.50)
[2021-04-07] MEDS: propofol 1000mg/100ml bottle 100 ML IV SCH ×2 (03:31→09:23)
[2021-04-07] MEDS: dexmedetomidine/D5W 100mL 100 ML IV SCH (04:44)
--- NOTE | 2021-04-07 06:29 | NUR ---
Problems reprioritized. Patient report given, questions answered & plan of care reviewed with GERARDO Elaine.
[2021-04-07] MEDS: ipratropium/albuterol 3ml nebule NEB PRN (07:37)
[2021-04-07] MEDS: enoxaparin 80mg/0.8ml syringe SUBCUT SCH (07:42)
[2021-04-07] MEDS: methylPREDNISolone sod succ/PF 40mg inj. IV SCH (07:42)
[2021-04-07] MEDS: cholecalciferol (vitamin D3) 1,000 unit (25mcg) tablet PEG SCH (07:43)
[2021-04-07] MEDS: zinc sulfate 220mg capsule PO SCH (07:43)
[2021-04-07] MEDS: famotidine 20mg tablet PO SCH (07:43)
[2021-04-07] MEDS: docusate sodium 100mg/10ml UD cup OGT SCH (07:43)
[2021-04-07] MEDS: micafungin inj 100 MG in normal saline 100ml IV soln 100 ML IV SCH (08:00)
[2021-04-07] MEDS: K and/or MAG REPLACEMENT MC SCH (08:00)
[2021-04-07] MEDS: MULTIVIT-MIN/FERROUS GLUCONATE 9 MG/15 ML LIQUID PEG SCH (08:00)
== END 2021-04-07 15:30 | DRG 4 ==
LOC: ER 13:03 → ED HOLD 20:16 → PCU 3S 03-02 19:30 → CICU 2S 03-04 09:36 → ICU 2S 03-24 18:41
PROVIDERS: ADMIT Internal Medicine; ATTEND Family Medicine
PROC: B32T1ZZ Computerized Tomography (CT Scan) of Left Pulmonary Artery using Low Osmolar Contrast (ICD-10-PCS; 2021-03-01)
PROC: B3201ZZ Computerized Tomography (CT Scan) of Thoracic Aorta using Low Osmolar Contrast (ICD-10-PCS; 2021-03-01)
PROC: B32S1ZZ Computerized Tomography (CT Scan) of Right Pulmonary Artery using Low Osmolar Contrast (ICD-10-PCS; 2021-03-01)
PROC: XW033E5 Introduction of Remdesivir Anti-infective into Peripheral Vein, Percutaneous Approach, New Technology Group 5 (ICD-10-PCS; principal; 2021-03-02)
PROC: 5A0935A Assistance with Respiratory Ventilation, Less than 24 Consecutive Hours, High Flow/Velocity Cannula (ICD-10-PCS; 2021-03-02)
PROC: 5A09357 Assistance with Respiratory Ventilation, Less than 24 Consecutive Hours, Continuous Positive Airway Pressure (ICD-10-PCS; 2021-03-03)
PROC: 5A1955Z Respiratory Ventilation, Greater than 96 Consecutive Hours (ICD-10-PCS; 2021-03-04)
PROC: 0BH17EZ Insertion of Endotracheal Airway into Trachea, Via Natural or Artificial Opening (ICD-10-PCS; 2021-03-04)
PROC: 0D9670Z Drainage of Stomach with Drainage Device, Via Natural or Artificial Opening (ICD-10-PCS; 2021-03-04)
PROC: 02HV33Z Insertion of Infusion Device into Superior Vena Cava, Percutaneous Approach (ICD-10-PCS; 2021-03-05)
PROC: B548ZZA Ultrasonography of Superior Vena Cava, Guidance (ICD-10-PCS; 2021-03-05)
PROC: 02HV33Z Insertion of Infusion Device into Superior Vena Cava, Percutaneous Approach (ICD-10-PCS; 2021-03-17)
PROC: B548ZZA Ultrasonography of Superior Vena Cava, Guidance (ICD-10-PCS; 2021-03-17)
PROC: 0B113F4 Bypass Trachea to Cutaneous with Tracheostomy Device, Percutaneous Approach (ICD-10-PCS; 2021-03-31)
PROC: 0DH63UZ Insertion of Feeding Device into Stomach, Percutaneous Approach (ICD-10-PCS; 2021-03-31)
PROC: 0BJ08ZZ Inspection of Tracheobronchial Tree, Via Natural or Artificial Opening Endoscopic (ICD-10-PCS; 2021-03-31)
DX: U07.1 COVID-19 (principal); J12.82 Pneumonia due to coronavirus disease 2019; J80 Acute respiratory distress syndrome; A41.50 Gram-negative sepsis, unspecified; G93.41 Metabolic encephalopathy; J93.9 Pneumothorax, unspecified; N17.9 Acute kidney failure, unspecified; R57.9 Shock, unspecified; Z99.11 Dependence on respirator [ventilator] status; E87.0 Hyperosmolality and hypernatremia; J98.2 Interstitial emphysema; R73.9 Hyperglycemia, unspecified; R00.1 Bradycardia, unspecified; E16.2 Hypoglycemia, unspecified; E66.01 Morbid (severe) obesity due to excess calories; I10 Essential (primary) hypertension; Z66 Do not resuscitate; Z68.29 Body mass index [BMI] 29.0-29.9, adult; Z28.21 Immunization not carried out because of patient refusal; Z78.1 Physical restraint status; E87.5 Hyperkalemia
CPT/HCPCS: 36415; 36573; 36600; 43246; 70450; 71045; 71275; 76604; 80053; 80202; 81001; 82803; 82948; 83036; 83605; 83615; 83735; 83880; 84100; 84132; 84134; 84145; 84443; 84478; 84484; 85007; 85018; 85025; 85379; 85384; 85610; 85730; 86140; 86703; 86885; 86900; 86901; 87040; 87070; 87077; 87081; 87186; 93005; 93308; 94002; 94003; 94640; 94660; 94760; 94799; 96365; 96366; 96367; 99285; B4087; G0378; J0456; J0461; J0692; J0696; J1100; J1120; J1265; J1644; J1650; J1815; J1940; J2212; J2248; J2270; J2543; J2704; J2920; J2930; J2997; J3010; J3370; J3480; J3490; J7030; J7040; J7120; P9045; Q9967